=== PATIENT | male | born 1975 | race Caucasian/White ===

== ENCOUNTER 2017-03-17 12:26 | Emergency (ER) | payer OTHER ==
[~2017-03-17] VITALS: Ht 185.4 cm; Wt 82.8 kg
[~2017-03-17 12:26] MED LIST: ALBUAER INH; TRAZ50TA35 PO; [UNRECOGNIZED DRUG - OTHER]
[2017-03-17 12:37] VITALS: Ht 185.4 cm; Wt 82.8 kg
[2017-03-17] MEDS ORDERED: ALBUAER INH (13:10)
[2017-03-17] MEDS ORDERED: BUSP15TA70 PO (13:10)
[2017-03-17] MEDS ORDERED: ADVIN25050 INH (13:17)
[2017-03-17] MEDS ORDERED: DOCUSATE SODIUM 100 MG/10 ML UDC PO STA (13:23)
--- NOTE | 2017-03-17 13:27 | EMERGENCY ROOM VISIT NOTE ---
History Report prepared by Navneet: Jorge Willis Under the Supervision of: Dr. Zeeshan Dominguez D.O. First contact with patient: 13:06 Chief Complaint: EAR PAIN Stated Complaint: SEVERE EAR PAIN BOTH EARS History of Present Illness The patient is a 41 year old male who presents to the Emergency Room with complaints of worsening bilateral ear pain beginning one week prior to arrival. He currently rates his discomfort as a 7/10 in severity. He states his symptoms worsen with cold air. The patient notes he has been experiencing allergies for a week and a half, and he has taken over the counter allergy medication. It is noted the patient has a 15 pack year history. He states he has been sober from alcohol for the past thirty days. The patient denies recreational drug use. 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 A total of 10 systems reviewed and were otherwise negative. Past Medical & Surgical Medical Problems: (1) Asthma Family History No significant family history Social History Smoking Status: Current Every Day Smoker Alcohol Use: occasionally Drug Use: none Housing Status: other Occupation Status: unemployed Current/Historical Medications Scheduled Albuterol Sulfate (Proventil Hfa), 2 PUFFS INH QID Buspirone Hcl (Buspar), 15 MG PO BID Cetirizine Hcl (Zyrtec), 1 TAB PO DAILY Fluocinolone Acetonide (Otic) (Dermotic), 3-5 DROPS OTB TID Fluticasone Prop/Salmeterol (Advair Diskus 250-50 Mcg/Dose), 1 PUFFS INH BID Scheduled PRN Fluticasone Propionate (Nasal) (Flonase Allergy Relief), 2 SPRAYS CHRISTINE DAILY PRN for Nasal Congestion Miscellaneous Medications Trazodone Hcl (Trazodone), 50 MG PO Allergies Coded Allergies: Penicillins (Verified Allergy, Unknown, ., 03/17/17) Physical Exam Vital Signs Date Time Temp Pulse Resp B/P Pulse Ox O2 Delivery O2 Flow Rate FiO2 03/17/17 15:07 85 18 99/72 96 Room Air 03/17/17 12:37 36.6 98 18 117/82 98 Room Air Physical Exam GENERAL: Patient is well appearing and in no acute distress. HEENT: Bilateral cerumen impaction. No acute trauma, normocephalic atraumatic, mucous membranes moist, no nasal congestion, no scleral icterus. NECK: No stridor, no adenopathy, no meningismus, trachea is midline. LUNGS: No dyspnea. Clear to auscultation and equal bilaterally. No wheeze, no rhonchi. HEART: Regular rate and rhythm. No murmurs, rubs, gallops appreciated. ABDOMEN: Soft, nontender, bowel sounds positive, no masses appreciated, no peritonitis. BACK: No midline tenderness, no CVA tenderness EXTREMITIES: Normal motion all extremities, no cyanosis, no edema. NEUROLOGIC: Alert and oriented, no acute motor or sensory deficits, no focal weakness, cranial nerves grossly intact. SKIN: No rash, no jaundice, no diaphoresis. Medical Decision & Procedures Medications Administered Medications (Trade) Dose Ordered Sig/Sera Route Start Time Stop Time Status Last Admin Dose Admin Docusate Sodium (coLACE SYRUP) 100 mg NOW STAT PO 03/17/17 13:23 03/17/17 13:25 DC 03/17/17 13:23 100 MG ED Course 1320: The patient was evaluated in room A10. A complete history and physical exam was performed. It is noted the patient's treatment plan was reviewed. 1323: Ordered Docusate Sodium 100 mg PO. 1425: Reevaluated the patient at this time, and he is doing well. 1515: Reevaluated the patient. Discussed results and discharge instructions: He verbalized understanding and agreement. The patient is ready for discharge. Medical Decision The differential diagnoses include but are not limited to: bilateral cerumen impaction, otitis media, otitis externa, cholesteatoma. Patient had significant bilateral cerumen impaction this was irrigated out by emergency department staff. I was definitively able to see the tympanic membrane on the right, there is significant erythema and chronic changes from long-standing cerumen impaction. On the left eyebrow believe I was able to see the tympanic membrane and a significant portion of the cerumen had been removed , however I want the patient evaluated by ear nose and throat to rule out cholesteatoma or any other significant pathology. I prescribed the patient a short course of otic steroids for 5 days, there does not appear to be a perforation in the eardrum. Also prescribed him Zyrtec and nasal neck for his seasonal allergies. [place] Drug [place] Search Results: patient reviewed within database, see additional documentation Drug Monitoring Findings: The patient had oxycodone prescribed on May 22, 2016. Impression Primary Impression: Bilateral impacted cerumen Additional Impression: Seasonal allergic rhinitis Scribe Attestation The scribe's documentation has been prepared under my direction and personally reviewed by me in its entirety. I confirm that the note above accurately reflects all work, treatment, procedures, and medical decision making performed by me. Departure Information Dispostion Home / Self-Care Prescriptions Fluocinolone Acetonide (Otic) (DERMOTIC) 0.01 % Oil 3-5 DROPS OTB TID for 5 Days, #1 AMP Prov: Zeeshan Dominguez D.OAlb[place] 03/17/17 Cetirizine Hcl (ZYRTEC) 10 Mg Tab 1 TAB PO DAILY for 30 Days, #30 TAB 0 Refills Prov: Zeeshan Dominguez D.O. 03/17/17 Fluticasone Propionate (Nasal) (Flonase Allergy Relief) 50 Mcg/Act Spr 2 SPRAYS CHRISTINE DAILY Y for Nasal Congestion, #1 EA Prov: Zeeshan Dominguez D.O[place] 03/17/17 Referrals No Doctor, Assigned (PCP) Vince Mcgee MD Call for follow-up appointment regarding allergies as well as possible cholesteatoma. Forms HOME CARE DOCUMENTATION FORM, IMPORTANT VISIT INFORMATION, WORK / SCHOOL INSTRUCTIONS Patient Instructions ED Cerumen Impaction, Home Care, ED Earwax Removal, [facility] Additional Instructions Return for fever greater than 101, or any other concerns. Problem Qualifiers Additional Impression: Seasonal allergic rhinitis Allergic rhinitis trigger: unspecified Qualified Codes: J30.2 - Other seasonal allergic rhinitis
[2017-03-17] MEDS ORDERED: CETI10TA10 PO (15:08)
[2017-03-17] MEDS ORDERED: FLUT0.15 NAE (15:08)
[2017-03-17] MEDS ORDERED: FLUO0.0122 OTB (15:12)
[2017-03-17 15:20] VITALS: BP 99/72; PULSE 85; TEMP 36.6; O2SAT 96
[2017-03-28] MEDS ORDERED: FLUT0.15 NAE (11:03)
[2017-03-28] MEDS ORDERED: CETI10TA84 PO (11:03)
[2017-03-28] MEDS ORDERED: CEFD300C2 PO (12:46)
[2017-03-28] MEDS ORDERED: PRVHFAIN INH (12:47)
[2017-03-28] MEDS ORDERED: TRAZ50TA35 PO (12:47)
[2017-03-28] MEDS ORDERED: ADVIN25/60 INH (12:47)
[2017-03-28] MEDS ORDERED: BUSP15TA70 PO (12:47)
== END 2017-03-17 15:21 | disposition home or self-care (01) ==
LOC: C.EDB 12:26 → C.EDA 15:21
DX: H61.23 Impacted cerumen, bilateral (principal); J30.2 Other seasonal allergic rhinitis; J45.909 Unspecified asthma, uncomplicated; F17.210 Nicotine dependence, cigarettes, uncomplicated; Z79.899 Other long term (current) drug therapy

== ENCOUNTER → 2017-04-06 | Outpatient (CLI) | payer OTHER ==
[~2017-04-06] MED LIST changes: +ADVIN25/60 INH; +ADVIN25050 INH; +BUSP15TA70 PO; +CEFD300C2 PO; +CETI10TA84 PO; +CLIN300C2 PO; +DIPH25CA5 PO; +DSY/50 PO; +ERYT250T PO; +FLUT0.15 NAE; +GABA600T PO; +HYDR-3124 PO; +MELA1TAB48 PO; +OFLO0.3S4 OTB; +PRVHFAIN INH; +SERT50TA PO; +TOPI50TA16 PO; +TRAZ100T29 PO; -[UNRECOGNIZED DRUG - OTHER]
--- NOTE | 2017-04-06 15:34 | DIAGNOSTIC IMAGING REPORT ---
CT TEMPORAL ORB/SELLA/TEMP W/O CT DOSE: 729.14 mGy.cm CLINICAL HISTORY: H93.8X1 Mass of right ear canalPATIENT WITH BILATERAL OTITIS MED TECHNIQUE: Helical images were acquired in transverse plane. Coronal reformatted images were acquired. COMPARISON STUDY: None. FINDINGS: There is a 4 mm polypoid nodule involving the anterior wall of the right external auditory canal. There is underlying bony erosive change, creating communication with the right temporal mandibular joint. The right middle ear cavity appears normal. There is a left mastoid effusion. Within the left middle ear cavity, there is a small amount of soft tissue abutting the malleus. The right middle ear cavity is normally aerated. No abnormalities the tympanic membranes are visualized. The scutum appears intact bilaterally. IMPRESSION: 1. Left mastoid effusion, and minimal soft tissue within the left middle ear cavity 2. The scutum appears intact bilaterally 3. 4 mm polypoid nodule involving the anterior wall the right external carotid canal with underlying bony erosive change. The etiology of this nodule is not known. An external auditory canal cholesteatoma is within the differential. Electronically signed by: Devyn Clark M.D. 04/06/2017 3:33 PM Dictated Date/Time: 04/06/2017 3:22 PM
== END ==
LOC: C.CTS 15:01
DX: H93.8X1 Other specified disorders of right ear (principal)

== ENCOUNTER 2017-04-16 15:30 | Emergency (ER) | payer OTHER ==
[~2017-04-16] VITALS: Ht 185.4 cm; Wt 83.1 kg
[~2017-04-16 15:30] MED LIST changes: -CLIN300C2 PO; -DIPH25CA5 PO; -DSY/50 PO; -ERYT250T PO; -GABA600T PO; -HYDR-3124 PO; -MELA1TAB48 PO; -OFLO0.3S4 OTB; -SERT50TA PO; -TOPI50TA16 PO; -TRAZ100T29 PO
[2017-04-16 15:38] VITALS: TEMP 36.9; Ht 185.4 cm; Wt 83.1 kg
--- NOTE | 2017-04-16 16:18 | DIAGNOSTIC IMAGING REPORT ---
CHEST ONE VIEW PORTABLE CLINICAL HISTORY: Mood Disorder mental status change COMPARISON STUDY: 03/28/2017 FINDINGS: Small fixed hiatal hernia. Lungs are clear. No evidence for cardiac enlargement. IMPRESSION: No acute process. Small hiatal hernia. Electronically signed by: Pawan Sifuentes M.D. 04/16/2017 4:16 PM Dictated Date/Time: 04/16/2017 4:16 PM
[2017-04-16 16:20] LABS: URINE APPEARANCE CLEAR (CLEAR); URINE BILIRUBIN NEG (NEG); URINE COLOR YELLOW; URINE NITRITE NEG (NEG); URINE SPECIFIC GRAVITY 1.008 (1.000-1.030); UROBILINOGEN NEG (NEG)
[2017-04-16 16:23] LABS: MANUAL MICROSCOPIC REQUIRED? NO; REVIEW REQ? NO
[2017-04-16 16:24] LABS: BASO % 0.4 %; BASO ABS # 0.05 K/uL (0-0.2); COMPLETE YES; EOS % 1.8 %; HEMATOCRIT 40.7 % (42-52); IG% 0.3 %; LYMPH % 23.8 %; LYMPH ABS # 2.85 K/uL (1.2-3.4); MEAN CELL VOLUME 85.1 fL (80-100); MEAN CORPUSCULAR HGB CONC 31.7 g/dl (32-36); MEAN PLATELET VOLUME 11.6 fL (7.4-10.4); MONO % 5.9 %; NEUT % 67.8 %; PLATELET COUNT 168 K/uL (130-400); RED BLOOD COUNT 4.78 M/uL (4.7-6.1); WHITE BLOOD COUNT 11.97 K/uL (4.8-10.8)
[2017-04-16] MEDS ORDERED: CLIN300C2 PO (16:33)
[2017-04-16] MEDS ORDERED: DIPH25CA5 PO (16:33)
[2017-04-16] MEDS ORDERED: OFLO0.3S4 OTB (16:33)
[2017-04-16 16:43] LABS: BUN/CREATININE RATIO 11.5 (10-20); CALCIUM 8.9 mg/dl (8.5-10.1); POTASSIUM 4.4 mmol/L (3.5-5.1)
[2017-04-16 16:49] LABS: BENZODIAZEPINE, URINE NEG (NEG); COCAINE,URINE NEG (NEG); PHENCYCLIDINE, URINE NEG (NEG)
[2017-04-16 16:53] LABS: THYROID STIMULATING HORMONE 1.4 uIu/ml (0.300-4.500)
[2017-04-16 17:11] VITALS: BP 130/75; PULSE 88; O2SAT 98
[2017-04-16] MEDS ORDERED: DSY/50 PO (17:12)
--- NOTE | 2017-04-16 21:58 | EMERGENCY ROOM VISIT NOTE ---
History Report prepared by Navneet: Leonor Xiong Under the Supervision of: Dr. John Barber D.O. First contact with patient: 15:43 Chief Complaint: ANXIETY Stated Complaint: TOOTH PAIN,ANXIETY History of Present Illness The patient is a 41 year old male who presents to the Emergency Room with complaints of worsening anxiety starting 1 week ago. He reports his anxiety attacks have worsened and his medications are no longer working. He denies any SI, HI, auditory hallucinations, or visual hallucinations. He has not been eating right, but has been taking care of himself. He denies any fever, chest pain, SOB, nausea, vomiting, or diarrhea. He has a history of seizure. He also reports tooth pain. He had a tooth that broke off. He went to the dentist 4 days ago who said he might need to have his teeth pulled. He was started on an antibiotic. He requests pain medications for his tooth pain. He is able to eat and drink without difficulty. 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 Source of History: patient, friend Onset: 1 week ago Position: other (mental health) Quality: other (anxiety) Timing: worsening Associated Symptoms: No SOB, No chest pain, No diarrhea, No fevers, No nausea, No vomiting Note: Pt reports tooth pain. Pt denies SI, HI, hallucinations. Review of Systems See HPI for pertinent positives & negatives. A total of 10 systems reviewed and were otherwise negative. Past Medical & Surgical Medical Problems: (1) Asthma (2) Seizure Family History Diabetes mellitus FH: cancer Hypertension Seizures Social History Smoking Status: Current Every Day Smoker Alcohol Use: occasionally Drug Use: none Housing Status: other Occupation Status: unemployed Current/Historical Medications Scheduled Buspirone Hcl (Buspar), 15 MG PO BID Cetirizine (Zyrtec), 10 MG PO DAILY Clindamycin Hcl (Cleocin), 300 MG PO Q8 Diphenhydramine Hcl (Benadryl), 25 MG PO DAILY Fluticasone Prop/Salmeterol (Advair Diskus 250-50 Mcg/Dose), 1 PUFFS INH BID Fluticasone Propionate (Nasal) (Flonase Allergy Relief), 1 SPRAY CHRISTINE DAILY Ofloxacin (Oph) (Ocuflox Oph Soln), 5 DROPS OTB BID Trazodone HCl (Trazodone HCl), 50 MG PO HS Trazodone Hcl (Trazodone), 50 MG PO HS Allergies Coded Allergies: Penicillins (Verified Allergy, Unknown, ., 03/28/17) Physical Exam Vital Signs Date Time Temp Pulse Resp B/P Pulse Ox O2 Delivery O2 Flow Rate FiO2 04/16/17 17:11 88 16 130/75 98 Room Air 04/16/17 15:38 36.9 101 18 129/80 96 Room Air Physical Exam GENERAL: sitting up in bed, disheveled, no acute distress EYE EXAM: normal conjunctiva MOUTH: poor dentition, left lower second molar with chip off the medial aspect, no acute tenderness to palpation, no induration, no swelling, no submandibular swelling, subglossal is soft, tolerating secretion, normal phonation. OROPHARYNX: no exudate, no erythema, lips, buccal mucosa, and tongue normal and mucous membranes are moist NECK: supple, no nuchal rigidity, no adenopathy, non-tender LUNGS: Clear to auscultation. Normal chest wall mechanics HEART: no murmurs, S1 normal and S2 normal ABDOMEN: abdomen soft, non-tender, normo-active bowel sounds, no masses, no rebound or guarding. BACK: Back is symmetrical on inspection and there is no deformity, no midline tenderness, no CVA tenderness. SKIN: no rashes and no bruising UPPER EXTREMITIES: upper extremities are grossly normal. LOWER EXTREMITIES: No pitting edema. NEURO EXAM: Normal sensorium, cranial nerves II-XII grossly intact, normal speech, no gross weakness of arms, no gross weakness of legs. PSYCH: Denies SI or HI, denies auditory or visual hallucinations, admits to drinking and caring for himself, but eating less. Medical Decision & Procedures ER Provider Diagnostic Interpretation: Xray results as stated below per my and the radiologist's interpretation: CHEST ONE VIEW PORTABLE CLINICAL HISTORY: Mood Disorder mental status change COMPARISON STUDY: 03/28/2017 FINDINGS: Small fixed hiatal hernia. Lungs are clear. No evidence for cardiac enlargement. IMPRESSION: No acute process. Small hiatal hernia. Electronically signed by: Pawan Sifuentes M.D. 04/16/2017 4:16 PM Dictated Date/Time: 04/16/2017 4:16 PM Laboratory Results 04/16/17 16:18 Red Blood Count 4.78, Mean Corpuscular Volume 85.1, Mean Corpuscular Hemoglobin 27.0, Mean Corpuscular Hemoglobin Concent 31.7, Mean Platelet Volume 11.6, Neutrophils (%) (Auto) 67.8, Lymphocytes (%) (Auto) 23.8, Monocytes (%) (Auto) 5.9, Eosinophils (%) (Auto) 1.8, Basophils (%) (Auto) 0.4, Neutrophils # (Auto) 8.11, Lymphocytes # (Auto) 2.85, Monocytes # (Auto) 0.71, Eosinophils # (Auto) 0.22, Basophils # (Auto) 0.05 04/16/17 16:18 Test 04/16/17 16:00 04/16/17 16:13 04/16/17 16:18 Urine Color YELLOW Urine Appearance CLEAR (CLEAR) Urine pH 7.0 (4.5-7.5) Urine Specific [place] 1.008 (1.000-1.030) Urine Protein NEG (NEG) Urine Glucose (UA) NEG (NEG) Urine Ketones NEG (NEG) Urine Occult Blood NEG (NEG) Urine Nitrite NEG (NEG) Urine Bilirubin NEG (NEG) Urine Urobilinogen NEG (NEG) Urine Leukocyte Esterase NEG (NEG) Urine Opiates Screen NEG (NEG) Urine Methadone, Qualitative NEG (NEG) Urine Barbiturates NEG (NEG) Urine Phencyclidine (PCP) Level NEG (NEG) Ur Amphetamine/Methamphetamine NEG (NEG) MDMA (Ecstasy) Screen NEG (NEG) Urine Benzodiazepines Screen NEG (NEG) Urine Cocaine Metabolite NEG (NEG) Urine Marijuana (THC) NEG (NEG) Bedside Glucose 90 mg/dl (70-99) White Blood Count 11.97 K/uL (4.8-10.8) Red Blood Count 4.78 M/uL (4.7-6.1) Hemoglobin 12.9 g/dL (14.0-18.0) Hematocrit 40.7 % (42-52) Mean Corpuscular Volume 85.1 fL (80-100) Mean Corpuscular Hemoglobin 27.0 pg (25-34) Mean Corpuscular Hemoglobin Concent 31.7 g/dl (32-36) Platelet Count 168 K/uL (130-400) Mean Platelet Volume 11.6 fL (7.4-10.4) Neutrophils (%) (Auto) 67.8 % Lymphocytes (%) (Auto) 23.8 % Monocytes (%) (Auto) 5.9 % Eosinophils (%) (Auto) 1.8 % Basophils (%) (Auto) 0.4 % Neutrophils # (Auto) 8.11 K/uL (1.4-6.5) Lymphocytes # (Auto) 2.85 K/uL (1.2-3.4) Monocytes # (Auto) 0.71 K/uL (0.11-0.59) Eosinophils # (Auto) 0.22 K/uL (0-0.5) Basophils # (Auto) 0.05 K/uL (0-0.2) RDW Standard Deviation 53.3 fL (36.4-46.3) RDW Coefficient of Variation 17.0 % (11.5-14.5) Immature Granulocyte % (Auto) 0.3 % Immature Granulocyte # (Auto) 0.03 K/uL (0.00-0.02) Anion Gap 6.0 mmol/L (3-11) Est Creatinine Clear Calc Drug Dose 108.7 ml/min Estimated GFR () 107.1 Estimated GFR (Non- 92.4 BUN/Creatinine Ratio 11.5 (10-20) Calcium Level 8.9 mg/dl (8.5-10.1) Total Bilirubin 0.7 mg/dl (0.2-1) Direct Bilirubin 0.1 mg/dl (0-0.2) Aspartate Amino Transf (AST/SGOT) 66 U/L (15-37) Alanine Aminotransferase (ALT/SGPT) 84 U/L (12-78) Alkaline Phosphatase 85 U/L (45-117) Total Protein 7.7 gm/dl (6.4-8.2) Albumin 4.1 gm/dl (3.4-5.0) Thyroid Stimulating Hormone (TSH) 1.400 uIu/ml (0.300-4.500) Ethyl Alcohol mg/dL < 3.0 mg/dl (0-3) Laboratory results per my review. ED Course ED COURSE: Vital signs were reviewed and showed tachycardia. The patients medical record was reviewed The above diagnostic studies were performed and reviewed. ED treatments and interventions as stated above. 1547: The patient was evaluated in room A8. A complete history and physical examination was performed. 1715: Upon reevaluation, the patient is resting comfortably.I discussed my findings with the patient and he understands and agrees with the treatment plan. Care management has set up an appointment with a PCP for the patient in 7 days. Based on the patients age, coexisting illnesses, exam and lab findings the decision to treat as an outpatient was made. The patient remained stable while under my care. The patient appeared well at the time of discharge. Medical Decision Differential diagnosis: Etiologies such as mood disorder, infection, hypoglycemia, electrolyte abnormalities, cardiac sources, intracerebral event, toxicologic, neurologic, as well as others were entertained. Patient is a 41-year-old male who presents the ER for dental pain. He notes that this has been worsening over the past couple days and did see a dentist who has him referred in to see an oral surgeon coming up. He is currently on clindamycin. He is requesting additional pain medications for his dentalgia. On my exam there is no obvious abscess. No signs of Aaron's angina. He is eating and drinking without difficulty. Recommended continuing the antibiotics along with Tylenol and Motrin. He did run out of his trazodone which was refilled for 8 days at which time we set up an appointment for him to see a new PCP. He can have his other medications filled at this time. He was evaluated by our psychiatric childcare center director who recommended discharge and having him follow- up by his PCP and therapist who we set up for him previously. CBC along with BMP, LFTs and bilirubin was unremarkable. Transaminitis has been persistent in the past. TSH is normal. Tox and alcohol were negative. UA was negative. Chest x-ray was unremarkable. Patient was updated in regards to his findings and discharged to follow-up with his PCP. Both myself, the childcare center director and the patient's friend felt that he was not danger to himself. The patient felt comfortable and wanted to go home. He was happy [facility] refilled his trazodone to help him sleep and assist with his anxiety. Discussed with Pt concerning signs and symptoms to watch out for. Pt was instructed to follow up with their PCP and discussed with the patient their option to return to the ED at anytime for persistent or worsening symptoms. The appropriate anticipatory guidance and out-patient management, including indications for return to the emergency department, were explained at length to the patient and understood. [place] Results: patient reviewed within database, no issues identified Impression Primary Impression: Dentalgia Additional Impressions: Transaminitis Anxiety Scribe Attestation The scribe's documentation has been prepared under my direction and personally reviewed by me in its entirety. I confirm that the note above accurately reflects all work, treatment, procedures, and medical decision making performed by me. Departure Information Dispostion Home / Self-Care Prescriptions Trazodone HCl (Trazodone HCl) 50 Mg Tab 50 MG PO HS, #8 Prov: John Barber, DO 04/16/17 Referrals No Doctor, Assigned (PCP) Forms HOME CARE DOCUMENTATION FORM, IMPORTANT VISIT INFORMATION Patient Instructions Anxiety Body Response, Decay Tooth, My [facility] Additional Instructions Please follow up with your primary care doctor as set up by our psychiatric childcare center director. Any worsening of your symptoms, please return to the ED immediately. This includes fevers greater than 100.4, trouble swallowing, swelling of your face, trouble breathing, thoughts of self-harm, thoughts of harming someone else, hearing voices or seeing people that others are not. Please take Tylenol or Motrin as needed for the tooth pain. Please continue your antibiotics. Problem Qualifiers
== END 2017-04-16 17:22 | disposition home or self-care (01) ==
LOC: C.EDB 15:31 → C.EDA 17:22
DX: K08.89 Other specified disorders of teeth and supporting structures (principal); R74.0 Nonspecific elevation of levels of transaminase and lactic acid dehydrogenase [LDH]; F41.9 Anxiety disorder, unspecified; J45.909 Unspecified asthma, uncomplicated; R56.9 Unspecified convulsions; Z83.3 Family history of diabetes mellitus; Z80.9 Family history of malignant neoplasm, unspecified; Z82.49 Family history of ischemic heart disease and other diseases of the circulatory system; F17.210 Nicotine dependence, cigarettes, uncomplicated; Z79.899 Other long term (current) drug therapy

== ENCOUNTER 2017-06-16 18:03 | Emergency (ER) | payer OTHER ==
[~2017-06-16] VITALS: Ht 185.4 cm; Wt 82.6 kg
[~2017-06-16 18:03] MED LIST changes: -ADVIN25/60 INH; -ALBUAER INH; +BND25 PO; -CEFD300C2 PO; +CLIN300C2 PO; +DSY/50 PO; +OFLO0.3S4 OTB; -PRVHFAIN INH
[2017-06-16 18:09] VITALS: TEMP 37; Ht 185.4 cm; Wt 82.6 kg
[2017-06-16] MEDS ORDERED: SODIUM CHLORIDE 0.9% 500ML 500 ML IV STA (18:12)
[2017-06-16] MEDS ORDERED: MULTI-VITAMIN INFUSION INJ 10 ML, THIAMINE HCL INJ 100 MG, FoLIC ACID INJ 1 MG in SODIU... IV ONE (18:15)
--- NOTE | 2017-06-16 18:17 | EMERGENCY ROOM VISIT NOTE ---
History Report prepared by Navneet: Scotty Patrick Under the Supervision of: Dr. Raffi Riley M.D. First contact with patient: 18:08 Stated Complaint: ALCOHOL OVERDOSE History of Present Illness HPI is limited due to mental status. The patient is a 41 year old male who presents to the Emergency Room via Emergency Medical services for an alcohol overdose. Per the hospital nursing staff the patient was found outside [employer], and was not behaving appropriately. The patient lives at the [facility] homeless long term and was hanging outside around [employer] all night last night. The patient admits to drinking alcohol. He is currently only complaining about a pain in his tooth and denies any recent vomiting. He also denies any head pain or traumatic falls. Source of History: patient, nursing staff Position: other (EtOH overdose) Quality: other (EtOH overdose ) Associated Symptoms: No headache, No vomiting Note: Tooth Pain Review of Systems ROS unobtainable secondary to mental status. Past Medical & Surgical Medical Problems: (1) Asthma (2) Seizure Family History Diabetes mellitus FH: cancer Hypertension Seizures Social History Smoking Status: Current Every Day Smoker Alcohol Use: occasionally Drug Use: none Housing Status: other Occupation Status: unemployed Current/Historical Medications Scheduled Cetirizine (Zyrtec), 10 MG PO DAILY Erythromycin (Erythromycin), 250 MG PO QID Fluticasone Prop/Salmeterol (Advair Diskus 250-50 Mcg/Dose), 1 PUFFS INH BID Fluticasone Propionate (Nasal) (Flonase Allergy Relief), 1 SPRAY CHRISTINE DAILY Gabapentin (Neurontin), 600 MG PO TID Hydroxyzine Hcl (Atarax), 25 MG PO BID Melatonin (Melatonin), 20 MG PO HS Ofloxacin (Oph) (Ocuflox Oph Soln), 5 DROPS OTB BID Sertraline (Zoloft), 50 MG PO DAILY Topiramate (Topamax), 50 MG PO BID Trazodone Hcl (Trazodone), 300 MG PO HS Allergies Coded Allergies: Penicillins (Verified Allergy, Unknown, ., 06/16/17) Physical Exam Vital Signs Date Time Temp Pulse Resp B/P (MAP) Pulse Ox O2 Delivery O2 Flow Rate FiO2 06/16/17 22:37 75 14 81/54 94 Room Air 06/16/17 20:51 85 16 104/65 98 Room Air 06/16/17 19:13 87 16 102/79 96 Room Air 06/16/17 18:09 37.0 99 16 102/79 96 Room Air Physical Exam GENERAL: Patient is in no acute distress. HEENT: No acute trauma, normocephalic atraumatic, mucous membranes moist, no nasal congestion, no scleral icterus. Pupils are equal and reactive to light. NECK: No stridor, no adenopathy, no meningismus, trachea is midline. LUNGS: Clear to auscultation bilaterally, no wheeze, no rhonchi, breath sounds equal. HEART: Without murmurs gallops or rubs, regular rate and rhythm. ABDOMEN: Soft, nontender, bowel sounds positive, no hernias, no peritonitis. EXTREMITIES: No cyanosis or edema, full range of motion of all the joints without pain or difficulty, no signs for acute trauma. NEUROLOGIC: Seems intoxicated. Patient is slurring his speech. There is no facial droop, no focal motor deficits. He seems sleepy. SKIN: No rash, no jaundice, no diaphoresis. Medical Decision & Procedures ER Provider Diagnostic Interpretation: Radiology results as stated below per my review and radiologist interpretation: CHEST ONE VIEW PORTABLE CLINICAL HISTORY: Mood Disorder mental status change COMPARISON STUDY: 03/28/2017 FINDINGS: Small fixed hiatal hernia. Lungs are clear. No evidence for cardiac enlargement. IMPRESSION: No acute process. Small hiatal hernia. Electronically signed by: Pawan Sifuentes M.D. 04/16/2017 4:16 PM Dictated Date/Time: 04/16/2017 4:[address] OF THE HEAD WITHOUT CONTRAST CLINICAL HISTORY: Headache. COMPARISON STUDY: Temporal bone CT April 06, 2017. CT DOSE: 687.98 mGy.cm TECHNIQUE: Helical axial images of the head were obtained without IV contrast. Automated exposure control was utilized for the study. A dose lowering technique was utilized adhering to the principles of ALARA. FINDINGS: No acute intracranial hemorrhage, midline shift or mass effect is present. Study is mildly compromised by motion artifact. Ventricular system is normal. The basilar cisterns are patent. There are no extra-axial collections. There are no findings to suggest acute dural sinus thrombosis or acute territorial infarct. No calvarial fracture is identified. Left mastoid cells are partially opacified. This has slightly improved since exam of April 06, 2017. Nasal bone deformities are chronic. IMPRESSION: 1. No acute intracranial findings. 2. No calvarial fracture. Electronically signed by: Matt Cristobal M.D. 06/16/2017 10:13 PM Dictated Date/Time: 06/16/2017 10:10 PM CHEST 2 VIEWS ROUTINE CLINICAL HISTORY: Abnormal portable chest radiograph. COMPARISON STUDY: Chest radiograph April 16, 2017 and June 16, 2017 at 7:32 PM. FINDINGS: A moderate sized hiatal hernia is noted. No pneumothorax or pleural effusion is present. Lungs are clear. The apparent right lung airspace opacity shown on prior portable chest radiograph was artifactual. There is no evidence of pulmonary edema. Cardiac size is normal. IMPRESSION: 1. No acute cardiopulmonary findings. The apparent right lung airspace opacity on prior portable chest radiograph was artifactual. 2. Moderate sized hiatal hernia. Electronically signed by: Matt Cristobal M.D. 06/16/2017 10:21 PM Dictated Date/Time: 06/16/2017 10:19 PM Laboratory Results 06/16/17 19:01 06/16/17 19:01 Test 06/16/17 00:00 06/16/17 19:01 Urine Opiates Screen NEG (NEG) Urine Methadone, Qualitative NEG (NEG) Urine Barbiturates NEG (NEG) Urine Phencyclidine (PCP) Level NEG (NEG) Ur Amphetamine/Methamphetamine NEG (NEG) MDMA (Ecstasy) Screen NEG (NEG) Urine Benzodiazepines Screen NEG (NEG) Urine Cocaine Metabolite NEG (NEG) Urine Marijuana (THC) NEG (NEG) Red Blood Count 4.33 M/uL (4.7-6.1) Mean Corpuscular Volume 85.9 fL (80-100) Mean Corpuscular Hemoglobin 28.2 pg (25-34) Mean Corpuscular Hemoglobin Concent 32.8 g/dl (32-36) RDW Standard Deviation 55.2 fL (36.4-46.3) RDW Coefficient of Variation 17.6 % (11.5-14.5) Platelet Estimate NORMAL Anion Gap 6.0 mmol/L (3-11) Est Creatinine Clear Calc Drug Dose 90.6 ml/min Estimated GFR () 85.9 Estimated GFR (Non- 74.1 BUN/Creatinine Ratio 11.3 (10-20) Calcium Level 8.5 mg/dl (8.5-10.1) Magnesium Level 2.2 mg/dl (1.8-2.4) Total Bilirubin 0.3 mg/dl (0.2-1) Direct Bilirubin 0.2 mg/dl (0-0.2) Aspartate Amino Transf (AST/SGOT) 84 U/L (15-37) Alanine Aminotransferase (ALT/SGPT) 121 U/L (12-78) Alkaline Phosphatase 86 U/L (45-117) Total Protein 6.8 gm/dl (6.4-8.2) Albumin 3.5 gm/dl (3.4-5.0) Ethyl Alcohol mg/dL 267.0 mg/dl (0-3) Laboratory results reviewed by me. Medications Administered Medications (Trade) Dose Ordered Sig/Sera Route Start Time Stop Time Status Last Admin Dose Admin Sodium Chloride 500 ml @ 999 mls/hr Q31M STAT IV 06/16/17 18:12 06/16/17 18:42 DC 06/16/17 18:12 999 MLS/HR Multivitamins 10 ml/Thiamine HCl 100 mg/Folic Acid 1 mg/Sodium Chloride 1,011.2 ml @ 500 mls/ hr Q2H2M ONCE IV 06/16/17 18:15 06/16/17 20:16 DC 06/16/17 18:15 500 MLS/HR ECG Indication: altered mental status, toxicologic Rate (beats per minute): 85 Rhythm: normal sinus Findings: no acute ischemic change, no ectopy, other (LVH present) ED Course 1808: The patient was evaluated in room B10. A complete history and physical exam was performed. 1811: Ordered Sodium Chloride 500 mL @ 999 mL/hr IV. 1814: Ordered Multivitamins 1,011.2 mL @ 500 mL/hr IV. 4: I reevaluated the patient at this time. He was asleep. 0030: The patient remains in the emergency department at this time. He will be signed out to Dr. Dubose at change of shift. Medical Decision Differential Diagnosis includes; EtOH abuse, drug abuse, aspiration, electrolyte imbalance, infection. There is no leukocytosis or concerning anemia. No significant electrolyte abnormality, no kidney failure. There were some liver enzyme elevations, likely consistent with alcohol abuse. Urine tox is negative. Alcohol level is elevated at 267, consistent with his alcohol abuse. Brain CT shows no acute bleed or mass effect. Initial chest film was hard to evaluate and suggested a possible infiltrate. Repeat chest film was performed when the patient was more awake and cooperative demonstrating no focal infiltrate, no CHF or mediastinal widening. EKG showed a sinus rhythm, no acute ischemia. The patient received IV saline and IV saline with thiamine, multivitamins and folate. He has been up to the bathroom a few times but then goes back to sleep rather quickly. I cannot find evidence for trauma. Patient appears to be sleepy and intoxicated with alcohol. We will allow the alcohol to clear, when he becomes more awake, he can be discharged. At this point, his care has been assumed by Dr. Dubose, please see his notes. Impression Primary Impression: Alcohol overdose Scribe Attestation The scribe's documentation has been prepared under my direction and personally reviewed by me in its entirety. I confirm that the note above accurately reflects all work, treatment, procedures, and medical decision making performed by me. Departure Information Dispostion Still a Patient Referrals No Doctor, Assigned (PCP)
[2017-06-16 19:20] LABS: MEAN CORPUSCULAR HGB CONC 32.8 g/dl (32-36)
[2017-06-16 19:28] LABS: HEMATOCRIT 37.2 % (42-52); MEAN CELL VOLUME 85.9 fL (80-100); MEAN CORPUSCULAR HEMOGLOBIN 28.2 pg (25-34); RED BLOOD COUNT 4.33 M/uL (4.7-6.1); WHITE BLOOD COUNT 7.06 K/uL (4.8-10.8)
[2017-06-16 19:42] LABS: BUN/CREATININE RATIO 11.3 (10-20); CALCIUM 8.5 mg/dl (8.5-10.1); CREATININE 1.2 mg/dl (0.60-1.40); MAGNESIUM 2.2 mg/dl (1.8-2.4); PLATELET COUNT 134 K/uL (130-400); PLT ESTIMATE NORMAL; POTASSIUM 3.3 mmol/L (3.5-5.1)
--- NOTE | 2017-06-16 19:46 | DIAGNOSTIC IMAGING REPORT ---
CHEST ONE VIEW PORTABLE CLINICAL HISTORY: Possible aspiration. COMPARISON STUDY: Chest radiograph April 16, 2017. FINDINGS: Evaluation was suboptimal due to difficulty positioning. No pneumothorax is identified. The costophrenic angles were not included. Asymmetric right mid and upper lung airspace opacity is present. There is no evidence of pulmonary edema. Lower mediastinal contour abnormality is suggestive of a hiatal hernia. IMPRESSION: 1. Asymmetric right mid and upper lung airspace opacity. While this could be artifactual, airspace disease is favored. 2. No pneumothorax identified. 3. Moderate sized hiatal hernia. Electronically signed by: Matt Cristobal M.D. 06/16/2017 7:45 PM Dictated Date/Time: 06/16/2017 7:41 PM
[2017-06-16] MEDS ORDERED: MELA1TAB48 PO (21:06)
[2017-06-16] MEDS ORDERED: GABA600T PO (21:06)
[2017-06-16] MEDS ORDERED: HYDR-3124 PO (21:06)
[2017-06-16] MEDS ORDERED: ERYT250T PO (21:06)
[2017-06-16] MEDS ORDERED: TOPI50TA16 PO (21:06)
[2017-06-16] MEDS ORDERED: SERT50TA PO (21:06)
[2017-06-16] MEDS ORDERED: TRAZ100T29 PO (21:06)
--- NOTE | 2017-06-16 22:14 | DIAGNOSTIC IMAGING REPORT ---
CT OF THE HEAD WITHOUT CONTRAST CLINICAL HISTORY: Headache. COMPARISON STUDY: Temporal bone CT April 06, 2017. CT DOSE: 687.98 mGy.cm TECHNIQUE: Helical axial images of the head were obtained without IV contrast. Automated exposure control was utilized for the study. A dose lowering technique was utilized adhering to the principles of ALARA. FINDINGS: No acute intracranial hemorrhage, midline shift or mass effect is present. Study is mildly compromised by motion artifact. Ventricular system is normal. The basilar cisterns are patent. There are no extra-axial collections. There are no findings to suggest acute dural sinus thrombosis or acute territorial infarct. No calvarial fracture is identified. Left mastoid cells are partially opacified. This has slightly improved since exam of April 06, 2017. Nasal bone deformities are chronic. IMPRESSION: 1. No acute intracranial findings. 2. No calvarial fracture. Electronically signed by: Matt Cristobal M.D. 06/16/2017 10:13 PM Dictated Date/Time: 06/16/2017 10:10 PM
--- NOTE | 2017-06-16 22:22 | DIAGNOSTIC IMAGING REPORT ---
CHEST 2 VIEWS ROUTINE CLINICAL HISTORY: Abnormal portable chest radiograph. COMPARISON STUDY: Chest radiograph April 16, 2017 and June 16, 2017 at 7:32 PM. FINDINGS: A moderate sized hiatal hernia is noted. No pneumothorax or pleural effusion is present. Lungs are clear. The apparent right lung airspace opacity shown on prior portable chest radiograph was artifactual. There is no evidence of pulmonary edema. Cardiac size is normal. IMPRESSION: 1. No acute cardiopulmonary findings. The apparent right lung airspace opacity on prior portable chest radiograph was artifactual. 2. Moderate sized hiatal hernia. Electronically signed by: Matt Cristobal M.D. 06/16/2017 10:21 PM Dictated Date/Time: 06/16/2017 10:19 PM
[2017-06-16 22:30] LABS: BENZODIAZEPINE, URINE NEG (NEG); COCAINE,URINE NEG (NEG); PHENCYCLIDINE, URINE NEG (NEG)
[2017-06-17 04:23] VITALS: BP 93/61; PULSE 91; O2SAT 96
--- NOTE | 2017-06-17 05:29 | EMERGENCY ROOM VISIT NOTE ---
ED Visit Note First contact with patient: 00:32 41 yr old male signed out to me by Dr Riley awaiting sobering up. He is awake, no distress and requesting discharge. Extensive testing unremarkable by Dr Riley other than elevated EtOH. Patient sleeping soundly and easily awoken. [place] to be sober and discharged with case management in to talk with him. Patient denies complaints nor other issues.
== END 2017-06-17 04:24 | disposition home or self-care (01) ==
LOC: EDBD 18:03 → C.EDB 18:03
DX: T51.91XA Toxic effect of unspecified alcohol, accidental (unintentional), initial encounter (principal); J45.909 Unspecified asthma, uncomplicated; F17.200 Nicotine dependence, unspecified, uncomplicated; Z86.69 Personal history of other diseases of the nervous system and sense organs; Z83.3 Family history of diabetes mellitus; Z82.49 Family history of ischemic heart disease and other diseases of the circulatory system; Z82.0 Family history of epilepsy and other diseases of the nervous system; Z79.899 Other long term (current) drug therapy

== ENCOUNTER 2017-06-18 17:02 | Emergency (ER) | payer OTHER ==
[~2017-06-18] VITALS: Ht 170.2 cm; Wt 82.4 kg
[~2017-06-18 17:02] MED LIST changes: -BND25 PO; -BUSP15TA70 PO; -CLIN300C2 PO; -DSY/50 PO; +ERYT250T PO; +GABA600T PO; +HYDR-3124 PO; +MELA1TAB48 PO; +SERT50TA PO; +TOPI50TA16 PO; +TRAZ100T29 PO; -TRAZ50TA35 PO
[2017-06-18 17:32] VITALS: TEMP 36.7; Ht 170.2 cm; Wt 82.4 kg
[2017-06-18 19:02] LABS: BASO % 0.6 %; BASO ABS # 0.05 K/uL (0-0.2); COMPLETE YES; EOS % 1.2 %; HEMATOCRIT 38.1 % (42-52); IG% 0.4 %; LYMPH % 22.9 %; LYMPH ABS # 1.94 K/uL (1.2-3.4); MEAN CELL VOLUME 86.4 fL (80-100); MEAN CORPUSCULAR HEMOGLOBIN 27.2 pg (25-34); MEAN CORPUSCULAR HGB CONC 31.5 g/dl (32-36); MEAN PLATELET VOLUME 12.6 fL (7.4-10.4); MONO % 6.9 %; PLATELET COUNT 154 K/uL (130-400); RED BLOOD COUNT 4.41 M/uL (4.7-6.1); WHITE BLOOD COUNT 8.49 K/uL (4.8-10.8)
[2017-06-18 19:10] LABS: URINE APPEARANCE CLEAR (CLEAR); URINE BILIRUBIN NEG (NEG); URINE COLOR YELLOW; URINE NITRITE NEG (NEG); URINE PH 5.5 (4.5-7.5); URINE SPECIFIC GRAVITY 1.012 (1.000-1.030); UROBILINOGEN NEG (NEG); ZZUR CULT IF INDIC CLEAN CATCH NO
[2017-06-18 19:13] LABS: MANUAL MICROSCOPIC REQUIRED? NO; REVIEW REQ? NO
[2017-06-18 19:32] LABS: BUN/CREATININE RATIO 10.4 (10-20); CREATININE 0.99 mg/dl (0.60-1.40); POTASSIUM 3.3 mmol/L (3.5-5.1)
[2017-06-18] MEDS ORDERED: NICOTINE 14 MG/24 HR TDSY TD STA (22:47)
[2017-06-18] MEDS ORDERED: TOPIRAMATE 50 MG TAB PO STA (23:26)
--- NOTE | 2017-06-19 00:11 | EMERGENCY ROOM VISIT NOTE ---
History First contact with patient: 17:42 Chief Complaint: ALCOHOL OVERDOSE Stated Complaint: ETOH Nursing Triage Summary: CALLED TO [facility] FOR PT THAT HAS SLURRED SPEECH History of Present Illness The patient is a 41 year old male who presents to the Emergency Room for evaluation of alcohol intoxication. The patient was sent by his [facility]. Staff there reported that the patient had slurred speech. The patient has a history of alcoholism. He does not admit to drinking tonight and states that he had "nothing at all" to drink. He denies any drug use or trauma. He denies any complaints at this time. The patient does state he is currently being treated for bilateral ear infections. He states he is using drops at home. Review of Systems A complete 10 point review of systems was reviewed with the patient with pertinent positives and negatives as per history of present illness. All else were negative. Past Medical/Surgical History Medical Problems: (1) Asthma (2) Seizure Family History Diabetes mellitus FH: cancer Hypertension Seizures Social History Smoking Status: Current Every Day Smoker Alcohol Use: occasionally Drug Use: none Housing Status: other Occupation Status: unemployed Current/Historical Medications Scheduled Cetirizine (Zyrtec), 10 MG PO DAILY Erythromycin (Erythromycin), 250 MG PO QID Fluticasone Prop/Salmeterol (Advair Diskus 250-50 Mcg/Dose), 1 PUFFS INH BID Fluticasone Propionate (Nasal) (Flonase Allergy Relief), 1 SPRAY CHRISTINE DAILY Hydroxyzine Hcl (Atarax), 25 MG PO TID Melatonin (Melatonin), 20 MG PO HS Ofloxacin (Oph) (Ocuflox Oph Soln), 5 DROPS OTB BID Sertraline (Zoloft), 50 MG PO DAILY Topiramate (Topamax), 50 MG PO BID Trazodone Hcl (Trazodone), 100 MG PO HS Physical Exam Vital Signs Date Time Temp Pulse Resp B/P (MAP) Pulse Ox O2 Delivery O2 Flow Rate FiO2 06/18/17 22:37 92 12 105/69 94 Room Air 06/18/17 21:50 83 06/18/17 19:59 80 16 100/74 98 Room Air 06/18/17 18:41 82 16 106/73 94 Room Air 06/18/17 17:50 92 06/18/17 17:32 36.7 94 14 117/70 95 Room Air Physical Exam VITALS: Vitals are noted on the nurse's note and reviewed by myself. Vital signs stable. GENERAL: This is a 41-year-old male, resting quietly in bed, appears to be visibly intoxicated, smells of ETOH. SKIN: The skin was without erythema, edema, or bruising. HEAD: Normocephalic atraumatic. EARS: External auditory canals clear. No hemotympanum. EYES: Pupils equal round and reactive to light and accommodation. NOSE: No deformities noted. MOUTH: No loose or chipped teeth. NECK: No cervical spine tenderness. HEART: Regular rate and rhythm without murmurs gallops or rubs. LUNGS: Clear to auscultation bilaterally without wheezes, rales or rhonchi. ABDOMEN: Soft, nontender. MUSCULOSKELETAL: Full range of motion throughout. Strength intact throughout. NEURO: Patient was alert and oriented to person place and time. Speech slurred. Gross sensation intact. Patient cooperative with examiner. Medical Decision & Procedures Laboratory Results 06/18/17 18:40 Red Blood Count 4.41, Mean Corpuscular Volume 86.4, Mean Corpuscular Hemoglobin 27.2, Mean Corpuscular Hemoglobin Concent 31.5, Mean Platelet Volume 12.6, Neutrophils (%) (Auto) 68.0, Lymphocytes (%) (Auto) 22.9, Monocytes (%) (Auto) 6.9, Eosinophils (%) (Auto) 1.2, Basophils (%) (Auto) 0.6, Neutrophils # (Auto) 5.78, Lymphocytes # (Auto) 1.94, Monocytes # (Auto) 0.59, Eosinophils # (Auto) 0.10, Basophils # (Auto) 0.05 06/18/17 18:40 Test 06/18/17 18:15 06/18/17 18:40 Urine Color YELLOW Urine Appearance CLEAR (CLEAR) Urine pH 5.5 (4.5-7.5) Urine Specific [place] 1.012 (1.000-1.030) Urine Protein NEG (NEG) Urine Glucose (UA) NEG (NEG) Urine Ketones NEG (NEG) Urine Occult Blood NEG (NEG) Urine Nitrite NEG (NEG) Urine Bilirubin NEG (NEG) Urine Urobilinogen NEG (NEG) Urine Leukocyte Esterase NEG (NEG) White Blood Count 8.49 K/uL (4.8-10.8) Red Blood Count 4.41 M/uL (4.7-6.1) Hemoglobin 12.0 g/dL (14.0-18.0) Hematocrit 38.1 % (42-52) Mean Corpuscular Volume 86.4 fL (80-100) Mean Corpuscular Hemoglobin 27.2 pg (25-34) Mean Corpuscular Hemoglobin Concent 31.5 g/dl (32-36) Platelet Count 154 K/uL (130-400) Mean Platelet Volume 12.6 fL (7.4-10.4) Neutrophils (%) (Auto) 68.0 % Lymphocytes (%) (Auto) 22.9 % Monocytes (%) (Auto) 6.9 % Eosinophils (%) (Auto) 1.2 % Basophils (%) (Auto) 0.6 % Neutrophils # (Auto) 5.78 K/uL (1.4-6.5) Lymphocytes # (Auto) 1.94 K/uL (1.2-3.4) Monocytes # (Auto) 0.59 K/uL (0.11-0.59) Eosinophils # (Auto) 0.10 K/uL (0-0.5) Basophils # (Auto) 0.05 K/uL (0-0.2) RDW Standard Deviation 56.5 fL (36.4-46.3) RDW Coefficient of Variation 17.8 % (11.5-14.5) Immature Granulocyte % (Auto) 0.4 % Immature Granulocyte # (Auto) 0.03 K/uL (0.00-0.02) Anion Gap 6.0 mmol/L (3-11) Est Creatinine Clear Calc Drug Dose 99.9 ml/min Estimated GFR () 108.4 Estimated GFR (Non- 93.6 BUN/Creatinine Ratio 10.4 (10-20) Calcium Level 8.0 mg/dl (8.5-10.1) Total Bilirubin 0.3 mg/dl (0.2-1) Direct Bilirubin 0.1 mg/dl (0-0.2) Aspartate Amino Transf (AST/SGOT) 73 U/L (15-37) Alanine Aminotransferase (ALT/SGPT) 112 U/L (12-78) Alkaline Phosphatase 93 U/L (45-117) Total Protein 6.5 gm/dl (6.4-8.2) Albumin 3.3 gm/dl (3.4-5.0) Ethyl Alcohol mg/dL 257.0 mg/dl (0-3) Medications Administered Medications (Trade) Dose Ordered Sig/Sera Route Start Time Stop Time Status Last Admin Dose Admin Nicotine (Nicoderm Cq 14MG Patch) 1 patch NOW STAT TD 06/18/17 22:47 06/18/17 22:48 DC 06/18/17 23:02 1 PATCH Medical Decision Differential diagnosis includes alcohol intoxication, drug intoxication, head trauma, among others. The patient was evaluated as above. He presents with acute alcohol intoxication. EtOH was found to be 257. Labs were otherwise unremarkable. The patient was monitored for several hours and allowed to rest. Case management spoke with the patient when he had become more sober. He is interested in going to rehabilitation. Case management was able to make arrangements for the patient to go to [facility] for rehabilitation. Patient will be transported there in the morning. Patient was given his nighttime dose of Topamax and a nicotine patch. His care was signed out to Benjamin Gaviria PA-C pending transportation to the rehabilitation facility. Medication Reconcilliation Current Medication List: was personally reviewed by me Blood Pressure Screening Patient's blood pressure: Normal blood pressure Impression Primary Impression: Alcohol abuse Departure Information Referrals No Doctor, Assigned (PCP) Forms HOME CARE DOCUMENTATION FORM, IMPORTANT VISIT INFORMATION Patient Instructions [facility]
--- NOTE | 2017-06-19 06:30 | EMERGENCY ROOM VISIT NOTE ---
ED Visit Note First contact with patient: 00:11 Patient care was assumed by me at the time of shift change from Anamaria Felton. Please see Ms. Vergara's dictation for full history of present illness and emergency Department course prior to my assumption of care. In short the patient is a self-reported alcoholic. He has been accepted to [facility] in [place] and is awaiting transport which is to occur at 12 noon. The patient has been fully cooperative with staff throughout his ER stay. He did eat a small amount of food and was able to drink. The patient has essentially been sleeping throughout his care with me. He is in stable condition and did not have any deterioration of his symptoms. EXAM GENERAL: Well-developed, well-nourished, white male, who is in no acute distress and resting comfortably. Patient is cooperative with the examination. HEART: Regular rate and rhythm without murmurs gallops or rubs. LUNGS: Clear to auscultation bilaterally without wheezes, rales or rhonchi. No retractions or accessory muscle use. NEURO: Patient was alert and mildly intoxicated but pleasant At this time the patient will care will be assumed by Zeeshan Osullivan PA-C. Please see Albina Osullivan's dictation for further patient course and final disposition. Problem List Medical Problems: (1) Asthma Status: Chronic (2) Seizure Status: Chronic Current/Historical Medications Scheduled Cetirizine (Zyrtec), 10 MG PO DAILY Erythromycin (Erythromycin), 250 MG PO QID Fluticasone Prop/Salmeterol (Advair Diskus 250-50 Mcg/Dose), 1 PUFFS INH BID Fluticasone Propionate (Nasal) (Flonase Allergy Relief), 1 SPRAY CHRISTINE DAILY Hydroxyzine Hcl (Atarax), 25 MG PO TID Melatonin (Melatonin), 20 MG PO HS Ofloxacin (Oph) (Ocuflox Oph Soln), 5 DROPS OTB BID Sertraline (Zoloft), 50 MG PO DAILY Topiramate (Topamax), 50 MG PO BID Trazodone Hcl (Trazodone), 100 MG PO HS Allergies Coded Allergies: Penicillins (Verified Allergy, Unknown, ., 06/16/17) Vital Signs Date Time Temp Pulse Resp B/P (MAP) Pulse Ox O2 Delivery O2 Flow Rate FiO2 06/19/17 00:26 89 14 94/49 94 Room Air 06/18/17 22:37 92 12 105/69 94 Room Air 06/18/17 21:50 83 06/18/17 19:59 80 16 100/74 98 Room Air 06/18/17 18:41 82 16 106/73 94 Room Air 06/18/17 17:50 92 06/18/17 17:32 36.7 94 14 117/70 95 Room Air Laboratory Results 06/18/17 18:40 Red Blood Count 4.41, Mean Corpuscular Volume 86.4, Mean Corpuscular Hemoglobin 27.2, Mean Corpuscular Hemoglobin Concent 31.5, Mean Platelet Volume 12.6, Neutrophils (%) (Auto) 68.0, Lymphocytes (%) (Auto) 22.9, Monocytes (%) (Auto) 6.9, Eosinophils (%) (Auto) 1.2, Basophils (%) (Auto) 0.6, Neutrophils # (Auto) 5.78, Lymphocytes # (Auto) 1.94, Monocytes # (Auto) 0.59, Eosinophils # (Auto) 0.10, Basophils # (Auto) 0.05 06/18/17 18:40 Test 06/18/17 18:15 06/18/17 18:40 Urine Color YELLOW Urine Appearance CLEAR (CLEAR) Urine pH 5.5 (4.5-7.5) Urine Specific [place] 1.012 (1.000-1.030) Urine Protein NEG (NEG) Urine Glucose (UA) NEG (NEG) Urine Ketones NEG (NEG) Urine Occult Blood NEG (NEG) Urine Nitrite NEG (NEG) Urine Bilirubin NEG (NEG) Urine Urobilinogen NEG (NEG) Urine Leukocyte Esterase NEG (NEG) White Blood Count 8.49 K/uL (4.8-10.8) Red Blood Count 4.41 M/uL (4.7-6.1) Hemoglobin 12.0 g/dL (14.0-18.0) Hematocrit 38.1 % (42-52) Mean Corpuscular Volume 86.4 fL (80-100) Mean Corpuscular Hemoglobin 27.2 pg (25-34) Mean Corpuscular Hemoglobin Concent 31.5 g/dl (32-36) Platelet Count 154 K/uL (130-400) Mean Platelet Volume 12.6 fL (7.4-10.4) Neutrophils (%) (Auto) 68.0 % Lymphocytes (%) (Auto) 22.9 % Monocytes (%) (Auto) 6.9 % Eosinophils (%) (Auto) 1.2 % Basophils (%) (Auto) 0.6 % Neutrophils # (Auto) 5.78 K/uL (1.4-6.5) Lymphocytes # (Auto) 1.94 K/uL (1.2-3.4) Monocytes # (Auto) 0.59 K/uL (0.11-0.59) Eosinophils # (Auto) 0.10 K/uL (0-0.5) Basophils # (Auto) 0.05 K/uL (0-0.2) RDW Standard Deviation 56.5 fL (36.4-46.3) RDW Coefficient of Variation 17.8 % (11.5-14.5) Immature Granulocyte % (Auto) 0.4 % Immature Granulocyte # (Auto) 0.03 K/uL (0.00-0.02) Anion Gap 6.0 mmol/L (3-11) Est Creatinine Clear Calc Drug Dose 99.9 ml/min Estimated GFR () 108.4 Estimated GFR (Non- 93.6 BUN/Creatinine Ratio 10.4 (10-20) Calcium Level 8.0 mg/dl (8.5-10.1) Total Bilirubin 0.3 mg/dl (0.2-1) Direct Bilirubin 0.1 mg/dl (0-0.2) Aspartate Amino Transf (AST/SGOT) 73 U/L (15-37) Alanine Aminotransferase (ALT/SGPT) 112 U/L (12-78) Alkaline Phosphatase 93 U/L (45-117) Total Protein 6.5 gm/dl (6.4-8.2) Albumin 3.3 gm/dl (3.4-5.0) Ethyl Alcohol mg/dL 257.0 mg/dl (0-3) Medications Administered Medications (Trade) Dose Ordered Sig/Sera Route Start Time Stop Time Status Last Admin Dose Admin Nicotine (Nicoderm Cq 14MG Patch) 1 patch NOW STAT TD 06/18/17 22:47 06/18/17 22:48 DC 06/18/17 23:02 1 PATCH Topiramate (Topamax Tab) 50 mg NOW STAT PO 06/18/17 23:26 06/18/17 23:28 DC 06/19/17 00:24 50 MG Departure Information Impression Primary Impression: Alcohol abuse Referrals No Doctor, Assigned (PCP) Forms HOME CARE DOCUMENTATION FORM, IMPORTANT VISIT INFORMATION Patient Instructions [facility]
[2017-06-19] MEDS ORDERED: NICOTINE POLACRILEX 2 MG GUM MT STA (10:43)
[2017-06-19] MEDS ORDERED: NICOTINE 21 MG/24 HR TDSY TD STA (11:23)
[2017-06-19 12:12] VITALS: BP 128/77; PULSE 62; O2SAT 94
--- NOTE | 2017-06-19 12:12 | EMERGENCY ROOM VISIT NOTE ---
ED Visit Note First contact with patient: 07:19 This is a 41-year-old male whose care was transferred to dc from [facility] at change of shift. At the time of transfer of care, we were awaiting patient transport to [facility] in [place] for alcohol detox. Further details of the patient's visit, lab work and ED intervention is well documented in the previous dictations. The patient had no further needs under my care, and left our emergency department around noon time, and will be transferred to the [facility] in [place].
== END 2017-06-19 12:15 | disposition other institution (70) ==
LOC: EDBD 17:02 → C.EDB 17:05 → C.EDA 06-19 12:15
DX: F10.229 Alcohol dependence with intoxication, unspecified (principal); J45.909 Unspecified asthma, uncomplicated; Z82.0 Family history of epilepsy and other diseases of the nervous system; Z83.3 Family history of diabetes mellitus; Z82.49 Family history of ischemic heart disease and other diseases of the circulatory system; Z80.9 Family history of malignant neoplasm, unspecified; F17.210 Nicotine dependence, cigarettes, uncomplicated; Z79.899 Other long term (current) drug therapy; Y90.8 Blood alcohol level of 240 mg/100 ml or more

== ENCOUNTER 2021-03-13 02:30 | Observation (INO) ==
[2021-03-13] MEDS ORDERED: DEXAMETHASONE SOD INJ 4 MG/ML VIAL IV STA (03:49)
[2021-03-13] MEDS ORDERED: ALBUT/IPRATROP 3MG/0.5MG NEB 3 ML VIAL NEB STA (03:51)
[2021-03-13 03:58] LABS: Mean Corpuscular Hgb Conc 30.2 g/dL (32-36); Nucleated RBC # (auto) 0.29 K/uL (0-0); Nucleated RBC % (auto) 1.6 %
[2021-03-13 04:07] LABS: Albumin Level 2.9 gm/dl (3.4-5.0); BUN Creatinine Ratio 10.4 (10-20); Calcium 7.8 mg/dl (8.5-10.1); Creatinine Clr Calc Pharmacy 158.1 ml/min; Est GFR (African American) 134.4; Est GFR (Non-African American) 115.9; Magnesium 1.7 mg/dl (1.8-2.4); Potassium 3.4 mmol/L (3.5-5.1)
[2021-03-13 04:10] LABS: Hematocrit (blood only) 32.1 % (42-52); Hemoglobin 9.7 g/dL (14.0-18.0); INR 1.2 (0.9-1.1); Mean Corpuscular Hemoglobin 23.1 pg (25-34); Mean Corpuscular Volume 76.4 fL (80-100); Partial Thromboplastin Time 26.3 Seconds (21.0-31.0); RDW Coefficient of Variation 26.2 % (11.5-14.5); RDW Standard Deviation 70.6 fL (36.4-46.3); White Blood Count 18.58 K/uL (4.8-10.8)
[2021-03-13 04:34] LABS: Albumin Globulin Ratio 0.7 (0.9-2); Bilirubin,Total 0.9 mg/dl (0.2-1); Globulin 4.2 gm/dl (2.5-4.0); Total Protein 7.1 gm/dl (6.4-8.2); Troponin I 0.05 ng/ml (0-0.045)
[2021-03-13 04:45] LABS: Anisocytosis Present; Basophils # (auto) 0.11 K/uL (0-0.2); Basophils % (auto) 0.6 %; Eosinophils # (auto) 0.12 K/uL (0-0.5); Eosinophils % (auto) 0.6 %; Hypochromasia Present; Immature Granulocytes # (auto) 0.18 K/uL (0.00-0.02); Lymphocytes % (auto) 6.5 %; Monocytes # (auto) 1.05 K/uL (0.11-0.59); Monocytes % (auto) 5.7 %; Neutrophils # (auto) 15.92 K/uL (1.4-6.5); Neutrophils % (auto) 85.6 %; Ovalocytes 1+; Platelet Count 120 K/uL (130-400); Platelet Estimate Decreased (Normal); Polychromasia 1+
[2021-03-13 05:09] LABS: D Dimer 4970 ug/L FEU (0-500)
[2021-03-13] MEDS ORDERED: OPTIRAY 350 500ml IV ONE (05:18)
[2021-03-13 06:12] LABS: Appearance Urine Clear (Clear); Bilirubin Urine Negative (Negative); Blood Urine Negative (Negative); Color Urine Yellow; Glucose Urine UA Negative (Negative); Ketones Urine Negative (Negative); Leukocyte Esterase Urine Negative (Negative); Nitrite Urine Negative (Negative); Protein Urine Negative (Negative); Urobilinogen Urine Negative (Negative)
--- NOTE | 2021-03-13 06:14 | Emergency Department Note ---
Impression & Plan Hypoxia ED Provider Note NAME: OMAR HOOD AGE: 45 SEX: M ARRIVES VIA: Ambulance INFORMANT: Patient ED PROVIDER(S): Bernadette Ch DO CHIEF COMPLAINT: Cough and shortness of breath PLAN: Disposition: Admitted to the [facility]ist service-Dr. Rehman Condition: Fair MEDICAL DECISION MAKING: This is a 45-year-old male patient with a history of severe iron deficiency anemia and hepatitis C who presents to the emergency department with extreme shortness of breath and hypoxia. The patient had just been discharged from [facility] when he presents to our emergency department with extreme shortness of breath and productive cough. CT scan of the chest showed evidence of pleural effusion and questionable viral pneumonitis versus a viral pneumonia. However, the patient was moderately hypoxic and required O2. Covid testing was negative. The patient had significant leukocytosis with a white blood cell count of greater than 18,000. His D-dimer had gone from approximately 1000 to 4024 hours. There is no evidence of pulmonary emboli. Patient did have an elevated troponin. The patient had received 6 units of packed red blood cells in the past 2 days while as an inpatient at [facility]. His hemoglobin went from approximately 2 to approximately 9. I discussed the case with the [facility] hospitalist and they will evaluate for further inpatient care here at this hospital. Triage Nursing notes reviewed and agree with them. Prior medical records reviewed by obtaining the discharge summary from [facility]. Vital Signs: reviewed and remarkable for hypoxia and tachycardia Differential diagnosis: COVID-19, pneumonia, congestive heart failure, alcohol intoxication, alcohol withdrawal ER treatment provided: IV Decadron IV Levaquin DuoNeb treatment Diagnostics interpreted by me: ECG: Sinus tachycardia at a rate of [address] segment elevation or signs of ischemia. There is no ectopy. QTC is 438 ms. Cardiac Monitoring: Sinus tachycardia at 120 Laboratory studies: See below Imaging studies: As per stat read CT chest with contrast: Limitations with respiratory artifact. There is no evidence of pulmonary embolism. Hiatal hernia with the superior aspect of the stomach noted in the posterior mediastinum. Mucosal prominence of the stomach is presumed related to near complete decompression. Layering bilateral pleural effusions, right greater than left with right effusion measuring approximately 2.6 cm. Subsegmental presumed compressive atelectasis predominantly adjacent to the pleural effusions. No pneumothorax. Subtle groundglass opacities in the posterior aspect of the left upper lobe are nonspecific and may represent residual viral infection or atelectasis. The thoracic aorta and cardiac chambers are unremarkable. No pericardial effusion. No significant mediastinal or hilar adenopathy. No acute osseous or significant overlying soft tissue abnormality. Incidental anterior ankylosis near the thoracic lumbar junction with accentuated kyphosis. Chest x-ray: As per my interpretation cardiomegaly with a hiatal hernia HPI: 45/M arrives for evaluation of shortness of. The patient was admitted to [facility] over the past 2 days and was discharged from there earlier today. The patient is an extremely poor historian but it seems that he may have been admitted there for an asthma exacerbation. He states that upon discharge he had 2 beers and smoked 2 cigarettes and was not feeling any better so he came here. The patient initially told me that he was Covid positive but upon obtaining the discharge summary from that hospital, testing revealed that he was Covid negative. The patient went on to tell me that he was actually seen at that hospital originally after having a seizure approximately 1 week ago and then another seizure just 5 days ago. The patient denies having a history of epilepsy or seizures but states that he had seizures when he was a young child. Patient denies that he is currently taking any antiseizure medications. The patient explains that he was supposed to get an iron supplement filled upon discharge from [facility] but did not do so. ROS: See above HPI for pertinent positives & negatives. A total of 10 systems reviewed and were otherwise negative. PAST MEDICAL HISTORY:According to the discharge summary, the patient has a history of severe iron deficiency anemia with a diagnosed hemoglobin of 2.6 upon intake at [facility].; Positive hepatitis C antibody; tobacco use; alcohol use PAST SURGICAL HISTORY:See Below FAMILY HISTORY:See Below SOCIAL HISTORY:The patient lives alone HOME MEDICATIONS:See list ALLERGIES:See list VITALS:See Below PHYSICAL EXAMINATION: HEENT: Head - normocephalic and atraumatic Pupils are equal, round, and reactive to light. Extraocular eye muscles are intact, and sclera are moderately injected and the eyes are tearing. Nose - moist nasal mucosa without discharge. Mouth - moist buccal mucosa. Oropharynx is nonerythematous and there is no tonsillar exudate or edema noted. Neck: Supple; no JVD, nuchal rigidity, cervical lymphadenopathy, or auscultated bruits. Heart: Tachycardic rate and regular rhythm. There is a normal S1 and S2 with no murmurs, clicks, or gallops appreciated. Lungs: Expiratory wheezing with rhonchi in all lung berrios Abdomen: Soft, completely nontender, nondistended, with good bowel sounds. There are no palpable pulsatile masses or hepatosplenomegaly. There is no guar ding, rigidity, or rebound noted. Extremities: No evidence of cyanosis, clubbing, or edema. There are easily palpable peripheral pulses. Skin: warm and dry with good turgor and no rashes. ED COURSE: Times/Reassessments: 0325: Patient was evaluated in room B2. A complete history and physical was performed. An order was placed for continuous cardiac monitoring. The patient was in a sinus tachycardia at a rate of 120. A portable chest x-ray was performed. Records were obtained from [facility]. Patient was placed on supplemental oxygen as his O2 saturation was only 86% on room air. He was given a DuoNeb treatment. The patient's D-dimer had gone up to 4000 from 1000 yesterday. The patient will go for CT scan of the chest to rule out PE. Patient was having a significant productive cough to the point that he was gagging at times. The patient was given 10 mg of IV Decadron. Patient's O2 saturation remained stable on supplemental oxygen. He was much more comfortable. Patient had significant leukocytosis and CT scan was concerning for possible pneumonia. The patient was given 750 mg of IV Levaquin. I reevaluated the patient multiple times throughout his stay here in the emergency department. [facility] will [facility] for further management. I have personally spent greater than 95 minutes of critical care time in the direct management of this patient. This includes bedside care, interpretation of diagnostic studies, and testing, discussion with consultants, patient, and family members, and other required patient management activities. This 95 minutes is in excess of all separately billable procedures. Bernadette Ch DO Past Med/Surg History Medical History (Updated 03/13/21 @ 17:33 by Bernadette Ch DO) Alcohol abuse Drug abuse Family History Other No significant family history Social History (Reviewed 06/26/19 @ 20:23 by Edith Salas Smoking Status: Current every day smoker Tobacco Type: Cigarettes and E-cigarettes / Vaping Cigarettes Per Day: 12; Second Hand Exposure: Yes; Do You Dip or Chew Tobacco: No; Tobacco Cessation Education Requested by Patient: No Hx Alcohol Use: Yes Alcohol type: beer Hx Substance Use: Yes Last Used Substance: Hours (ago) Last Used Substance Other:: 03/12/2021 "helps appitite" Preferred Language: Filipino Communication Ability: Effective Target Developer Required: No Beliefs That Will Affect Care: None Current Living Situation: Alone Current Living Situation Comment: states he lives with a friend at this time. Other Information That Helps Us Care for You: No Feels Safe at Home: Yes Safety Concerns: Feels Safe At This Time Assistive Devices: Oxygen - Continuous Allergies Allergies Allergy/AdvReac Type Severity Reaction Status Date / Time Penicillins Allergy Unknown Unknown Verified 03/13/21 08:21 Home Meds Home Medications Medication Instructions Recorded Confirmed No Known Home Medications 03/13/21 03/13/21 Results & Data (ED) Vital Signs Vital Signs - 24 hr 03/13/21 02:30 03/13/21 02:41 03/13/21 04:23 Temperature 36.9 C Temperature Source Oral Pulse Rate 129 H 128 H Pulse Rate [Apical] 115 H Pulse Rate from SpO2 Sensor 128 H Pulse Rhythm Regular Pulse Strength Normal Respiratory Rate 30 H 21 20 Respiratory Effort / Characteristics Accessory Muscle Use Labored Short of Breath Spontaneous Respiratory Depth Deep Respiratory Pattern Regular Blood Pressure 146/76 H 145/76 H Blood Pressure Mean 99 99 Blood Pressure Position Sitting Pulse Oximetry 86 L 96 98 Oxygen Delivery Method Room Air Nasal Cannula Nasal Cannula Oxygen Flow Rate 2 4 Sepsis Recent Fever Within 48 Hours No Sepsis New/Unexplained Change in Mental Status No Sepsis Action Taken by Nursing No Action Required 03/13/21 04:30 03/13/21 05:00 03/13/21 06:06 Temperature Temperature Source Pulse Rate 107 H 96 H 123 H Pulse Rate [Apical] Pulse Rate from SpO2 Sensor 106 H 99 H 123 H Pulse Rhythm Pulse Strength Respiratory Rate 18 25 H 24 Respiratory Effort / Characteristics Respiratory Depth Respiratory Pattern Blood Pressure 130/91 Blood Pressure Mean 104 Blood Pressure Position Pulse Oximetry 97 99 96 Oxygen Delivery Method Nasal Cannula Nasal Cannula Nasal Cannula Oxygen Flow Rate 2 2 2 Sepsis Recent Fever Within 48 Hours Sepsis New/Unexplained Change in Mental Status Sepsis Action Taken by Nursing 03/13/21 07:00 03/13/21 07:30 03/13/21 08:00 Temperature Temperature Source Pulse Rate 95 H 90 108 H Pulse Rate [Apical] Pulse Rate from SpO2 Sensor 95 H 91 H Pulse Rhythm Pulse Strength Respiratory Rate 18 20 19 Respiratory Effort / Characteristics Respiratory Depth Respiratory Pattern Blood Pressure Blood Pressure Mean Blood Pressure Position Pulse Oximetry 99 100 Oxygen Delivery Method Nasal Cannula Nasal Cannula Nasal Cannula Oxygen Flow Rate 2 2 2 Sepsis Recent Fever Within 48 Hours Sepsis New/Unexplained Change in Mental Status Sepsis Action Taken by Nursing 03/13/21 08:18 Temperature Temperature Source Pulse Rate Pulse Rate [Apical] Pulse Rate from SpO2 Sensor 104 H Pulse Rhythm Pulse Strength Respiratory Rate Respiratory Effort / Characteristics Respiratory Depth Respiratory Pattern Blood Pressure 153/113 H Blood Pressure Mean 126 Blood Pressure Position Pulse Oximetry 96 Oxygen Delivery Method Nasal Cannula Oxygen Flow Rate 2 Sepsis Recent Fever Within 48 Hours Sepsis New/Unexplained Change in Mental Status Sepsis Action Taken by Nursing Laboratory Data Result diagrams: 03/13/21 02:45 03/13/21 02:45 Lab Results 03/13/21 03/13/21 03/13/21 Range/Units 02:45 02:45 02:45 WBC 18.58 H (4.8-10.8) K/uL RBC 4.20 L (4.7-6.1) M/uL Hgb 9.7 L (14.0-18.0) g/dL Hct 32.1 L (42-52) % MCV 76.4 L (80-100) fL MCH 23.1 L (25-34) pg MCHC 30.2 L (32-36) g/dL RDW Std Deviation 70.6 H (36.4-46.3) fL RDW Coeff of Trin[place] 26.2 H (11.5-14.5) % Plt Count 120 L (130-400) K/uL Immature Gran % (Auto) 1.0 % Neut % (Auto) 85.6 % Lymph % (Auto) 6.5 % Douglas % (Auto) 5.7 % Eos % (Auto) 0.6 % Baso % (Auto) 0.6 % Neut # (Auto) 15.92 H (1.4-6.5) K/uL Lymph # (Auto) 1.20 (1.2-3.4) K/uL Douglas # (Auto) 1.05 H (0.11-0.59) K/uL Eos # (Auto) 0.12 (0-0.5) K/uL Baso # (Auto) 0.11 (0-0.2) K/uL Immature Gran # (Auto) 0.18 H (0.00-0.02) K/uL Absolute Nucleated RBC 0.29 H (0-0) K/uL Nucleated RBC % (auto) 1.6 % Platelet Estimate Decreased L (Normal) Polychromasia 1+ Hypochromasia Present Anisocytosis Present Ovalocytes 1+ PT 12.0 (9.0-12.0) Seconds INR 1.2 H (0.9-1.1) APTT 26.3 (21.0-31.0) Seconds PTT Ratio 1.0 D-Dimer (0-500) ug/L FEU Sodium 137 (136-145) mmol/L Potassium 3.4 L (3.5-5.1) mmol/L Chloride 106 (98-107) mmol/L Carbon Dioxide 25 (21-32) mmol/L Anion Gap 6.0 (3-11) BUN 7 (7-18) mg/dl Creatinine 0.66 (0.6-1.4) mg/dl Est Cr Clr Drug Dosing 158.1 ml/min Est GFR ( Amer) 134.4 Est GFR (Non-Af Amer) 115.9 BUN/Creatinine Ratio 10.4 (10-20) Glucose 126 H (70-99) mg/dl Lactate (0.4-2.0) mmol/L Calcium 7.8 L (8.5-10.1) mg/dl Magnesium 1.7 L (1.8-2.4) mg/dl Total Bilirubin 0.9 (0.2-1) mg/dl AST 40 H (15-37) U/L ALT 225 H (12-78) U/L Alkaline Phosphatase 143 H (45-117) U/L Troponin I 0.050 H* (0-0.045) ng/ml NT-Pro-B Natriuret Pep (0-450) pg/ml Total Protein 7.1 (6.4-8.2) gm/dl Albumin 2.9 L (3.4-5.0) gm/dl Globulin 4.2 H (2.5-4.0) gm/dl Albumin/Globulin Ratio 0.7 L (0.9-2) Urine Color Urine Appearance (Clear) Urine pH (4.5-7.5) Ur Specific [place] (1.000-1.030) Urine Protein (Negative) Urine Glucose (UA) (Negative) Urine Ketones (Negative) Urine Blood (Negative) Urine Nitrite (Negative) Urine Bilirubin (Negative) Urine Urobilinogen (Negative) Ur Leukocyte Esterase (Negative) Urine Opiates Screen (Neg) Ur Methadone, Qual (Neg) Urine Barbiturates (Neg) Ur Phencyclidine (PCP) (Neg) U Amphetamin/Meth Scrn (Neg) MDMA (Ecstasy) Screen (Neg) U Benzodiazepines Scrn (Neg) Ur Cocaine Metabolite (Neg) U Marijuana (THC) Screen (Neg) Ethyl Alcohol mg/dL (0-3) mg/dl COVID-19 Eval Order SARS-CoV-2 (PCR) (Negative) Influenza Type A (PCR) (Neg) Influenza Type B (PCR) (Neg) RSV (RT-PCR) (Neg) 03/13/21 03/13/21 03/13/21 Range/Units 02:45 02:45 03:15 WBC (4.8-10.8) K/uL RBC (4.7-6.1) M/uL Hgb (14.0-18.0) g/dL Hct (42-52) % MCV (80-100) fL MCH (25-34) pg MCHC (32-36) g/dL RDW Std Deviation (36.4-46.3) fL RDW Coeff of [place] (11.5-14.5) % Plt Count (130-400) K/uL Immature Gran % (Auto) % Neut % (Auto) % Lymph % (Auto) % Douglas % (Auto) % Eos % (Auto) % Baso % (Auto) % Neut # (Auto) (1.4-6.5) K/uL Lymph # (Auto) (1.2-3.4) K/uL Douglas # (Auto) (0.11-0.59) K/uL Eos # (Auto) (0-0.5) K/uL Baso # (Auto) (0-0.2) K/uL Immature Gran # (Auto) (0.00-0.02) K/uL Absolute Nucleated RBC (0-0) K/uL Nucleated RBC % (auto) % Platelet Estimate (Normal) Polychromasia Hypochromasia Anisocytosis Ovalocytes PT (9.0-12.0) Seconds INR (0.9-1.1) APTT (21.0-31.0) Seconds PTT Ratio D-Dimer 4970 H* (0-500) ug/L FEU Sodium (136-145) mmol/L Potassium (3.5-5.1) mmol/L Chloride (98-107) mmol/L Carbon Dioxide (21-32) mmol/L Anion Gap (3-11) BUN (7-18) mg/dl Creatinine (0.6-1.4) mg/dl Est Cr Clr Drug Dosing ml/min Est GFR ( Amer) Est GFR (Non-Af Amer) BUN/Creatinine Ratio (10-20) Glucose (70-99) mg/dl Lactate (0.4-2.0) mmol/L Calcium (8.5-10.1) mg/dl Magnesium (1.8-2.4) mg/dl Total Bilirubin (0.2-1) mg/dl AST (15-37) U/L ALT (12-78) U/L Alkaline Phosphatase (45-117) U/L Troponin I (0-0.045) ng/ml NT-Pro-B Natriuret Pep 979 H (0-450) pg/ml Total Protein (6.4-8.2) gm/dl Albumin (3.4-5.0) gm/dl Globulin (2.5-4.0) gm/dl Albumin/Globulin Ratio (0.9-2) Urine Color Urine Appearance (Clear) Urine pH (4.5-7.5) Ur Specific [place] (1.000-1.030) Urine Protein (Negative) Urine Glucose (UA) (Negative) Urine Ketones (Negative) Urine Blood (Negative) Urine Nitrite (Negative) Urine Bilirubin (Negative) Urine Urobilinogen (Negative) Ur Leukocyte Esterase (Negative) Urine Opiates Screen (Neg) Ur Methadone, Qual (Neg) Urine Barbiturates (Neg) Ur Phencyclidine (PCP) (Neg) U Amphetamin/Meth Scrn (Neg) MDMA (Ecstasy) Screen (Neg) U Benzodiazepines Scrn (Neg) Ur Cocaine Metabolite (Neg) U Marijuana (THC) Screen (Neg) Ethyl Alcohol mg/dL 27.0 H (0-3) mg/dl COVID-19 Eval Order SARS-CoV-2 (PCR) (Negative) Influenza Type A (PCR) (Neg) Influenza Type B (PCR) (Neg) RSV (RT-PCR) (Neg) 03/13/21 03/13/21 03/13/21 Range/Units 04:44 04:44 05:26 WBC (4.8-10.8) K/uL RBC (4.7-6.1) M/uL Hgb (14.0-18.0) g/dL Hct (42-52) % MCV (80-100) fL MCH (25-34) pg MCHC (32-36) g/dL RDW Std Deviation (36.4-46.3) fL RDW Coeff of [place] (11.5-14.5) % Plt Count (130-400) K/uL Immature Gran % (Auto) % Neut % (Auto) % Lymph % (Auto) % Douglas % (Auto) % Eos % (Auto) % Baso % (Auto) % Neut # (Auto) (1.4-6.5) K/uL Lymph # (Auto) (1.2-3.4) K/uL Douglas # (Auto) (0.11-0.59) K/uL Eos # (Auto) (0-0.5) K/uL Baso # (Auto) (0-0.2) K/uL Immature Gran # (Auto) (0.00-0.02) K/uL Absolute Nucleated RBC (0-0) K/uL Nucleated RBC % (auto) % Platelet Estimate (Normal) Polychromasia Hypochromasia Anisocytosis Ovalocytes PT (9.0-12.0) Seconds INR (0.9-1.1) APTT (21.0-31.0) Seconds PTT Ratio D-Dimer (0-500) ug/L FEU Sodium (136-145) mmol/L Potassium (3.5-5.1) mmol/L Chloride (98-107) mmol/L Carbon Dioxide (21-32) mmol/L Anion Gap (3-11) BUN (7-18) mg/dl Creatinine (0.6-1.4) mg/dl Est Cr Clr Drug Dosing ml/min Est GFR ( Amer) Est GFR (Non-Af Amer) BUN/Creatinine Ratio (10-20) Glucose (70-99) mg/dl Lactate 0.9 (0.4-2.0) mmol/L Calcium (8.5-10.1) mg/dl Magnesium (1.8-2.4) mg/dl Total Bilirubin (0.2-1) mg/dl AST (15-37) U/L ALT (12-78) U/L Alkaline Phosphatase (45-117) U/L Troponin I (0-0.045) ng/ml NT-Pro-B Natriuret Pep (0-450) pg/ml Total Protein (6.4-8.2) gm/dl Albumin (3.4-5.0) gm/dl Globulin (2.5-4.0) gm/dl Albumin/Globulin Ratio (0.9-2) Urine Color Urine Appearance (Clear) Urine pH (4.5-7.5) Ur Specific [place] (1.000-1.030) Urine Protein (Negative) Urine Glucose (UA) (Negative) Urine Ketones (Negative) Urine Blood (Negative) Urine Nitrite (Negative) Urine Bilirubin (Negative) Urine Urobilinogen (Negative) Ur Leukocyte Esterase (Negative) Urine Opiates Screen (Neg) Ur Methadone, Qual (Neg) Urine Barbiturates (Neg) Ur Phencyclidine (PCP) (Neg) U Amphetamin/Meth Scrn (Neg) MDMA (Ecstasy) Screen (Neg) U Benzodiazepines Scrn (Neg) Ur Cocaine Metabolite (Neg) U Marijuana (THC) Screen (Neg) Ethyl Alcohol mg/dL (0-3) mg/dl COVID-19 Eval Order [facility] at [facility] SARS-CoV-2 (PCR) NEGATIVE (Negative) Influenza Type A (PCR) Negative (Neg) Influenza Type B (PCR) Negative (Neg) RSV (RT-PCR) Negative (Neg) 03/13/21 03/13/21 Range/Units 05:40 05:40 WBC (4.8-10.8) K/uL RBC (4.7-6.1) M/uL Hgb (14.0-18.0) g/dL Hct (42-52) % MCV (80-100) fL MCH (25-34) pg MCHC (32-36) g/dL RDW Std Deviation (36.4-46.3) fL RDW Coeff of [place] (11.5-14.5) % Plt Count (130-400) K/uL Immature Gran % (Auto) % Neut % (Auto) % Lymph % (Auto) % Douglas % (Auto) % Eos % (Auto) % Baso % (Auto) % Neut # (Auto) (1.4-6.5) K/uL Lymph # (Auto) (1.2-3.4) K/uL Douglas # (Auto) (0.11-0.59) K/uL Eos # (Auto) (0-0.5) K/uL Baso # (Auto) (0-0.2) K/uL Immature Gran # (Auto) (0.00-0.02) K/uL Absolute Nucleated RBC (0-0) K/uL Nucleated RBC % (auto) % Platelet Estimate (Normal) Polychromasia Hypochromasia Anisocytosis Ovalocytes PT (9.0-12.0) Seconds INR (0.9-1.1) APTT (21.0-31.0) Seconds PTT Ratio D-Dimer (0-500) ug/L FEU Sodium (136-145) mmol/L Potassium (3.5-5.1) mmol/L Chloride (98-107) mmol/L Carbon Dioxide (21-32) mmol/L Anion Gap (3-11) BUN (7-18) mg/dl Creatinine (0.6-1.4) mg/dl Est Cr Clr Drug Dosing ml/min Est GFR ( Amer) Est GFR (Non-Af Amer) BUN/Creatinine Ratio (10-20) Glucose (70-99) mg/dl Lactate (0.4-2.0) mmol/L Calcium (8.5-10.1) mg/dl Magnesium (1.8-2.4) mg/dl Total Bilirubin (0.2-1) mg/dl AST (15-37) U/L ALT (12-78) U/L Alkaline Phosphatase (45-117) U/L Troponin I (0-0.045) ng/ml NT-Pro-B Natriuret Pep (0-450) pg/ml Total Protein (6.4-8.2) gm/dl Albumin (3.4-5.0) gm/dl Globulin (2.5-4.0) gm/dl Albumin/Globulin Ratio (0.9-2) Urine Color Yellow Urine Appearance Clear (Clear) Urine pH 6.0 (4.5-7.5) Ur Specific [place] 1.010 (1.000-1.030) Urine Protein Negative (Negative) Urine Glucose (UA) Negative (Negative) Urine Ketones Negative (Negative) Urine Blood Negative (Negative) Urine Nitrite Negative (Negative) Urine Bilirubin Negative (Negative) Urine Urobilinogen Negative (Negative) Ur Leukocyte Esterase Negative (Negative) Urine Opiates Screen Neg (Neg) Ur Methadone, Qual Neg (Neg) Urine Barbiturates Neg (Neg) Ur Phencyclidine (PCP) Neg (Neg) U Amphetamin/Meth Scrn Neg (Neg) MDMA (Ecstasy) Screen Neg (Neg) U Benzodiazepines Scrn Neg (Neg) Ur Cocaine Metabolite Neg (Neg) U Marijuana (THC) Screen Neg (Neg) Ethyl Alcohol mg/dL (0-3) mg/dl COVID-19 Eval Order SARS-CoV-2 (PCR) (Negative) Influenza Type A (PCR) (Neg) Influenza Type B (PCR) (Neg) RSV (RT-PCR) (Neg) Administered Medications Albuterol (Albut/Ipratrop 3mg/0.5mg Neb 3 Ml Vial) 3 ml NEB QIDR PADMINI Stop: 04/12/21 12:42 Last Admin: 03/13/21 14:05 Dose: Not Given Documented by: [id number] Admin: 03/13/21 14:05 Dose: 3 ml Documented by: [id number] Methylprednisolone 40 mg/ (Syringe) 0.64 mls @ 1.5 mls/min IV BID PADMINI Stop: 04/12/21 13:14 Last Admin: 03/13/21 14:37 Dose: 1.5 mls/min Documented by: [id number] Discontinued Medications Albuterol (Albut/Ipratrop 3mg/0.5mg Neb 3 Ml Vial) 3 ml NEB NOW STA Stop: 03/13/21 03:52 Last Admin: 03/13/21 04:22 Dose: 3 ml Documented by: [id number] Dexamethasone (Dexamethasone Sod Inj 4 Mg/Ml Vial) 10 mg IV NOW STA Stop: 03/13/21 03:50 Last Admin: 03/13/21 04:42 Dose: 10 mg Documented by: [id number] Levofloxacin/Dextrose (Levaquin/D5w) 750 mg in 150 mls @ 100 mls/hr IV NOW STA Stop: 03/13/21 08:29 Last Infusion: 03/13/21 10:00 Dose: 0 mls/hr Documented by: [id number] Admin: 03/13/21 08:17 Dose: 100 mls/hr Documented by: [id number] Ioversol (Optiray 350 500ml) 120 ml IV ONCE ONE Stop: 03/13/21 05:19 Last Admin: 03/13/21 05:19 Dose: 120 ml Documented by: [id number] Imaging Data Radiologist's Impression: Chest X-Ray 03/13/21 03:50 XR chest 1V portable CLINICAL HISTORY: Dyspnea COMPARISON STUDY: 06/27/2019 FINDINGS: The heart is enlarged. There is a retrocardiac opacity consistent with a hiatal hernia. There is no failure. There is no focal pulmonary consolidation. There are no significant pleural effusions.[ IMPRESSION: 1. Mild cardiomegaly 2. Moderate hiatal hernia 3. No acute findings. ACT 112: Negative or not required by law. Electronically signed by: Devyn Clark M.D. 03/13/2021 8:37 AM Chest CTA 03/13/21 05:12 CT angio chest PE protocol CT DOSE: 464.66 mGy.cm HISTORY: 45 years-old Male with PE. Acute shortness of breath. COVID Positive. TECHNIQUE: Multiple CTA images of the chest were obtained after the intravenous administration of 120 ml Optiray. Coronal and sagittal MIPS were obtained from the axial data set and were submitted for review. All measurements were obtained according to NASCET criteria. A dose lowering technique was utilized adhering to the principles of ALARA. COMPARISON: Chest radiograph of same day FINDINGS: CTA: The heart is normal in size. No pericardial effusion. No thoracic aortic aneurysm or dissection. There is patency of the imaged great vessels. The pulmonary artery is opacified to level of the segmental branches and demonstrates no filling defects to suggest thromboembolic disease. CT CHEST: No thyroid nodule. Mild subcarinal adenopathy measures up to 11 mm. Small layering pleural effusions. Dependent bibasilar consolidation. Subtle patchy subpleural biapical groundglass densities. Mild bronchial wall thickening. Intralobular septal thickening of the lung bases with mild right greater than left bibasilar ground glass densities. Central airways are patent. Large hiatal hernia with mid and distal esophageal wall thickening. Hepatosplenomegaly with hepatic steatosis. Unremarkable soft tissues. There is no acute fracture. There is developmental bony fusion at T11-T12 with increased kyphotic curvature centered at this interspace. IMPRESSION: 1. No pulmonary emboli. 2. Small layering pleural effusions with dependent compressive bibasilar atelectasis. 3. Mild intralobular septal thickening of the right greater than left lung bases may reflect a component of pulmonary edema. 4. Subtle biapical subpleural groundglass densities are suspicious for superimposed viral pneumonia. 5. Mild likely reactive subcarinal adenopathy. 6. Large hiatal hernia. ACT 112: Negative or not required by law. The above report was generated using voice recognition software. It may contain grammatical, syntax or spelling errors. Electronically signed by: Raman Cai M.D. 03/13/2021 8:10 AM Discharge Plan Visit Data Chief Complaint: Shortness of Breath/Dyspnea Stated Complaint: SHORT OF BREATH ED Provider: Bernadette Ch Discharge Problem: Hypoxia Patient Disposition: Admitted As Inpatient Discharge Instructions Interventions: ED Discharge Assessment Last Done: 03/13/21 11:52
[2021-03-13 06:24] LABS: Influenza A virus by PCR Negative (Neg); Influenza B virus by PCR Negative (Neg); RSV by PCR Negative (Neg); SARS CoV2 RNA(COVID-19) InHosp NEGATIVE (Negative)
[2021-03-13] MEDS ORDERED: levoFLOXacin/D5W 750 MG/150 ML BAG IV STA (07:00)
--- NOTE | 2021-03-13 08:11 | CT Scan Report ---
CT angio chest PE protocol CT DOSE: 464.66 mGy.cm HISTORY: 45 years-old Male with PE. Acute shortness of breath. COVID Positive. TECHNIQUE: Multiple CTA images of the chest were obtained after the intravenous administration of 120 ml Optiray. Coronal and sagittal MIPS were obtained from the axial data set and were submitted for review. All measurements were obtained according to NASCET criteria. A dose lowering technique was u tilized adhering to the principles of ALARA. COMPARISON: Chest radiograph of same day FINDINGS: CTA: The heart is normal in size. No pericardial effusion. No thoracic aortic aneurysm or dissection. Ther e is patency of the imaged great vessels. The pulmonary artery is opacified to level of the segmental branches and demonstrates no filling defects to suggest thromboembolic disease. CT CHEST: No thyroid nodule. Mild subcarinal adenopathy measures up to 11 mm. Small layering pleural effusions. Dependent bibasilar consolidation. Subtle patchy subpleural biapical groundglass densities. Mild bro nchial wall thickening. Intralobular septal thickening of the lung bases with mild right greater than left bibasilar ground glass densities. Central airways are patent. Large hiatal hernia with mid and distal esophageal wall thickening. Hepatosplenomegaly with hepatic s teatosis. Unremarkable soft tissues. There is no acute fracture. There is developmental bony fusion a t T11-T12 with increased kyphotic curvature centered at this interspace. IMPRESSION: 1. No pulmonary emboli. 2. Small layering pleural effusions with dependent compressive bibasilar atelectasis. 3. Mild intralobular septal thickening of the right greater than left lung bases may reflect a compon ent of pulmonary edema. 4. Subtle biapical subpleural groundglass densities are suspicious for superimposed viral pneumonia. 5. Mild likely reactive subcarinal adenopathy. 6. Large hiatal hernia. ACT 112: Negative or not required by law. The above report was generated using voice recognition software. It may contain grammatical, syntax o r spelling errors. Electronically signed by: Raman Cai M.D. 03/13/2021 8:10 AM
--- NOTE | 2021-03-13 08:36 | History & Physical Report ---
Date of Service March 13, 2021 Assessment & Plan (1) COPD exacerbation: Dexamethasone given in ER. Continue prednisone 40mg PO daily. Duonebelia QID. Incentive spirometry. Previous ER note he was on Advair diskus and he feels like he needs a maintenance inhaler again therefore will restart this or hospital formulary equivalent. (2) Pneumonia: Elevated WBC with shortness of breath. Possible aspiration with alcohol use although no evidence of this on CT. Levaquin 750mg daily. Aspiration precautions. (3) Alcohol intoxication: Positive ethyl alcohol level on admission. Monitor for alcohol withdrawal Lorazepam PRN per AW protocol Not interested in inpatient rehabilitation but will need to set up outpatient support. (4) Microcytic anemia: Stable Hgb since discharge from [facility] - suspected nutrition related rather than GI bleed given minor symptoms in relation to hemoglobin 2.6. Fecal occult blood pending (negative at [facility]). (5) Hypoxia: Secondary to PNA and COPD exacerbation. Possible element of pulmonary edema and ascites noted on CT in [facility] therefore with all his recent fluid resuscitation will start on furosemide 40mg PO. Aim O2 sats > 90% (6) Transaminitis: Secondary to alcohol use +/- hepatitis C Repeat with AM labs. (7) HCV antibody positive: Newly diagnosed at [facility]. Needs to establish with PCP for follow up of this to determine treatment. (8) Depression: Previously on sertraline and trazodone which the patient is keen to restart. I am unclear of the indication for his more recently prescribed Seroquel therefore will hold off restarting this. (9) Ascites: Start furosemide 40mg PO daily (10) Bilateral pleural effusion: Furosemide as above (11) DVT prophylaxis: SCDs. Chemical prophylaxis deferred given recent severe anemia and need to make sure this is stable prior to starting anticoagulation. Admission and Anticipated Discharge Date Admission Date: March 13, 2021 History of Present Illness Chief Complaint: Shortness of breath Primary Care Provider: Kevin Barger Benjamin Alvarez is a 45-year-old male who presents to the ER with shortness of breath. He was recently in [facility] from March 10-2020 with muscle cramps, dizziness, abdominal pain and seizure-like activity (although denies this to me). He was diagnosed with acute iron deficiency anemia with hemoglobin 2.6. Fecal occult blood was negative and suspect due to malnutrition with chronic alcohol use. He had a total of 6 packed RBCs transfused and Venofer. He drinks approximately 3 beers/night. He denies any alcohol withdrawal symptoms recently and reports he has already cut back alcohol from earlier in the pandemic. After being discharged he went home and drank 2 beers, smoked and fell asleep. On waking up he was very short of breath and coughing therefore decided to come to the ER here as he felt he has been taken care of here well in the past. He reports running out of all his medications in December. Per external medication list he was last prescribed Seroquel in September for 30 day supply. He denies any chest pain, orthopnea or PND. In the ER he was wheezing which improved with duonebs, CTA showed no pulmonary emboli but was concerning for findings suggestive of pulmonary edema vs. viral pneumonia. Procalcitonin negative. WBC increased to 18.58. He was started on Levaquin for pneumonia. He was hypoxic in the mid 80s on room air and therefore referred to medicine for admission and ongoing management of hypoxia. Allergies Allergy/AdvReac Type Severity Reaction Status Date / Time Penicillins Allergy Unknown Unknown Verified 03/13/21 08:21 Home Medications Medication Instructions Recorded Confirmed Type No Known Home Medications 03/13/21 03/13/21 History Past Med/Surg History Medical History (Updated 03/13/21 @ 22:18 by Devin Rehman MD) Alcohol abuse Anxiety Depression Drug abuse Microcytic anemia Family History Other No significant family history Social History Smoking Status: Current every day smoker Tobacco Type: Cigarettes and E-cigarettes / Vaping Cigarettes Per Day: 12; Second Hand Exposure: Yes; Do You Dip or Chew Tobacco: No; Tobacco Cessation Education Requested by Patient: No Hx Alcohol Use: Yes Alcohol type: beer Hx Substance Use: Yes Last Used Substance: Hours (ago) Last Used Substance Other:: 03/12/2021 "helps appitite" Preferred Language: Persian Communication Ability: Effective Special Education Director Required: No Beliefs That Will Affect Care: None Current Living Situation: Alone Current Living Situation Comment: states he lives with a friend at this time. Other Information That Helps Us Care for You: No Feels Safe at Home: Yes Safety Concerns: Feels Safe At This Time Assistive Devices: Oxygen - Continuous Review of Systems Review of Systems: All systems reviewed & are unremarkable except as noted in HPI & below Physical Exam Constitutional: well developed; + not well nourished and no acute distress Eyes: PERRL, conjunctivae normal, anicteric sclerae Neck: trachea midline Respiratory: normal respiratory effort; no respiratory distress, does not use accessory muscles and + not able to speak in complete sentence Auscultation: + diminished lung sounds (bibasal) and + crackles; no rales and no wheezes Cardiovascular: Rate/Rhythm: regular rhythm and + tachycardic Heart Sounds: no murmur Vessels: no JVD Extremities: normal capillary refill and + pedal edema (trace ankles b/l equal) Gastrointestinal (Abdomen): Inspection/Auscultation: abdomen normal to inspection and normal bowel sounds Percussion/Palpation: abdomen soft; abdomen nontender, no guarding, abdomen not rigid and no hepatomegaly Musculoskeletal: no cyanosis or clubbing, extremities motor strength 5/5 Skin: no rashes, warm and dry Neurologic: moves all extremities and awake; no focal motor deficits and not confused Speech / Cognition: normal speech Motor/Sensory: no tremor and no pronator drift Psychiatric: A+Ox3, euthymic affect Results & Data Results & Data ([facility]) Vital Signs (Past 12 Hours) Vital Signs Temp Pulse Pulse Resp BP Pulse Ox 03/13/21 08:18 153/113 H 96 03/13/21 08:00 108 H 19 03/13/21 07:30 90 20 100 03/13/21 07:00 95 H 18 99 03/13/21 06:06 123 H 24 130/91 96 03/13/21 05:00 96 H 25 H 99 03/13/21 04:30 107 H 18 97 03/13/21 04:23 115 H 20 98 03/13/21 02:41 128 H 21 145/76 H 96 03/13/21 02:30 36.9 C 129 H 30 H 146/76 H 86 L Diagnostic Findings XR chest 1V portable IMPRESSION: 1. Mild cardiomegaly 2. Moderate hiatal hernia 3. No acute findings. CT angio chest PE protocol IMPRESSION: 1. No pulmonary emboli. 2. Small layering pleural effusions with dependent compressive bibasilar atelectasis. 3. Mild intralobular septal thickening of the right greater than left lung bases may reflect a component of pulmonary edema. 4. Subtle biapical subpleural groundglass densities are suspicious for superimposed viral pneumonia. 5. Mild likely reactive subcarinal adenopathy. 6. Large hiatal hernia. Medications Administered ER Medications Given: Duoneb 3ml Dexamethasone 10mg IV Levaquin 750mg IV ECG Indication: SOB/dyspnea and tachycardia Rate (beats per minute): 123 Rhythm: sinus tachycardia Findings: + nonspecific-ST abn Comparison ECG Date: from (Jun 26, 2019) Change: no significant change Code Status & VTE Plan Code Status Full VTE Prophylaxis Plan VTE Prophylaxis will be ordered: Yes PG Care Time/CCT Total # of Minutes Spent Total Time Spent with Patient: Total time spent is greater than 50% in coordination of care (as documented) at patient's floor/unit and/or counseling patient: Coding Level of Care Code 17208 Initial Inpt Care Lvl 3 Diagnoses COPD exacerbation J44.1 Pneumonia J18.9 Pneumonia type: due to unspecified organism Laterality: bilateral Lung location: unspecified part of lung Alcohol intoxication F10.920 Complication of substance-induced condition: uncomplicated Microcytic anemia D50.9 Hypoxia R09.02 Transaminitis R74.0 HCV antibody positive R76.8 Depression F32.9 Ascites R18.8 Bilateral pleural effusion J90 DVT prophylaxis Z29.9 (1) Alcohol intoxication Complication of substance-induced condition: uncomplicated Qualified Code(s): F10.920 - Alcohol use, unspecified with intoxication, uncomplicated (2) Pneumonia Pneumonia type: due to unspecified organism Laterality: bilateral Lung location: unspecified part of lung Qualified Code(s): J18.9 - Pneumonia, unspecified organism
--- NOTE | 2021-03-13 08:39 | XRay Report ---
XR chest 1V portable CLINICAL HISTORY: Dyspnea COMPARISON STUDY: 06/27/2019 FINDINGS: The heart is enlarged. There is a retrocardiac opacity consistent with a hiatal hernia. The re is no failure. There is no focal pulmonary consolidation. There are no significant pleural effusio ns.[ IMPRESSION: 1. Mild cardiomegaly 2. Moderate hiatal hernia 3. No acute findings. ACT 112: Negative or not required by law. Electronically signed by: Devyn Clark M.D. 03/13/2021 8:37 AM
[2021-03-13 08:59] LABS: Amphetamines+Metham, Urine Neg (Neg); Barbiturates, Urine Neg (Neg); Benzodiazepine, Urine Neg (Neg); Cocaine, Urine Neg (Neg); MDMA (Ecstacy), Urine Neg (Neg); Methadone, Urine Neg (Neg); Opiate, Urine Neg (Neg); Phencyclidine, Urine Neg (Neg)
[2021-03-13 09:51] LABS: Folate (Folic Acid) 13.9 ng/ml (>5.38)
[2021-03-13] MEDS ORDERED: POLYETHYLENE (MIRALAX) 17 GM PACK PO PRN (12:43)
[2021-03-13] MEDS ORDERED: LORazepam 1 MG/2 ML VIAL IV PRN (12:43)
--- NOTE | 2021-03-13 13:08 | Electrocardiogram Report ---
Test Reason : Blood Pressure : / mmHG Vent. Rate : 123 BPM Atrial Rate : 123 BPM P-R Int : 160 ms QRS Dur : 094 ms QT Int : 302 ms P-R-T Axes : 079 088 057 degrees QTc Int : 432 ms Poor data quality, interpretation may be adversely affected Sinus tachycardia Incomplete right bundle branch block Nonspecific ST abnormality Abnormal ECG When compared with ECG of 26-JUN-2019 19:51, No significant change was found Confirmed by Eamon Dickens ([id number]) on 03/13/2021 1:07:28 PM Referred By: REFERRED SELF Confirmed By:Ankit Dickens
[2021-03-13] MEDS ORDERED: methylPREDNISolone 40 MG in SYRINGE 0 ML IV SCH (13:15)
[2021-03-13] MEDS: ALBUT/IPRATROP 3MG/0.5MG NEB 3 ML VIAL NEB SCH ×3 (14:05→19:34)
[2021-03-13] MEDS: traZODone HCL 100 MG TAB PO SCH (21:12)
[2021-03-14 07:06] LABS: Nucleated RBC # (auto) 0.15 K/uL (0-0); Nucleated RBC % (auto) 1.2 %
[2021-03-14 07:14] LABS: Mean Corpuscular Hemoglobin 23.4 pg (25-34); Mean Corpuscular Volume 77.9 fL (80-100); RDW Coefficient of Variation 28.5 % (11.5-14.5); RDW Standard Deviation 75.5 fL (36.4-46.3); Red Blood Count 3.85 M/uL (4.7-6.1); White Blood Count 13.03 K/uL (4.8-10.8)
[2021-03-14 07:27] LABS: Anisocytosis Present; Basophils # (auto) 0.01 K/uL (0-0.2); Basophils % (auto) 0.1 %; Hypochromasia Present; Immature Granulocytes # (auto) 0.05 K/uL (0.00-0.02); Immature Granulocytes % (auto) 0.4 %; Lymphocytes # (auto) 1.24 K/uL (1.2-3.4); Lymphocytes % (auto) 9.5 %; Microcytosis Present; Monocytes # (auto) 0.33 K/uL (0.11-0.59); Monocytes % (auto) 2.5 %; Neutrophils % (auto) 87.5 %; Platelet Count 137 K/uL (130-400); Platelet Estimate Normal (Normal); Polychromasia 2+; Target Cells 1+
[2021-03-14 07:43] LABS: Albumin Globulin Ratio 0.8 (0.9-2); Albumin Level 2.6 gm/dl (3.4-5.0); BUN Creatinine Ratio 19.3 (10-20); Bilirubin,Total 0.8 mg/dl (0.2-1); Calcium 9.1 mg/dl (8.5-10.1); Creatinine Clr Calc Pharmacy 153.4 ml/min; Est GFR (African American) 132.7; Est GFR (Non-African American) 114.5; Globulin 3.4 gm/dl (2.5-4.0); Potassium 3.8 mmol/L (3.5-5.1)
[2021-03-14] MEDS: ALBUT/IPRATROP 3MG/0.5MG NEB 3 ML VIAL NEB SCH ×3 (07:48→16:16)
[2021-03-14] MEDS: FUROSEMIDE 40 MG TAB PO SCH (08:34)
[2021-03-14] MEDS: MAGNESIUM OXIDE 400 MG TAB PO SCH ×2 (08:35→20:33)
[2021-03-14] MEDS: THIAMINE HCL 100 MG TAB PO SCH (08:36)
[2021-03-14] MEDS: FEXOFENADINE HCL 180 MG TAB PO SCH (08:36)
[2021-03-14] MEDS: levoFLOXacin 750 MG TAB PO SCH (08:36)
[2021-03-14] MEDS: MULTIVITAMIN TAB PO SCH (08:36)
[2021-03-14] MEDS: predniSONE 20 MG TAB PO SCH (08:36)
[2021-03-14] MEDS: SERTRALINE HCL 50 MG TABLET PO SCH (08:36)
[2021-03-14] MEDS: POTASSIUM CHLORIDE CRTAB 20 MEQ TABCR PO SCH (08:37)
[2021-03-14] MEDS: NICOTINE 14 MG/24 HR PATCH TD SCH (08:37)
[2021-03-14] MEDS: FLUTICASONE/VILANTEROL 100/25MCG 14 PUFFS/INHALER INH SCH (08:38)
[2021-03-14] MEDS ORDERED: levoFLOXacin/D5W 750 MG/150 ML BAG IV SCH (09:00)
[2021-03-14] MEDS: ACETAMINOPHEN 325 MG TAB PO PRN (09:05)
[2021-03-14] MEDS ORDERED: IBUPROFEN 600 MG TAB PO STA (14:32)
--- NOTE | 2021-03-14 14:37 | Hospitalist Progress Note ---
Date of Service March 14, 2021 Assessment & Plan (1) Hypoxia: Secondary to PNA and COPD exacerbation, as well as likely volume overload and pulmonary edema from 6 units of PRBCs recently transfused. Echocardiogram ordered and with grade 1 diastolic dysfunction but preserved EF Now much improved and can be weaned off oxygen after receiving p.o. Lasix -Continue furosemide 40mg PO once daily. Aim O2 sats > 90% -Continue treatment with Levaquin -Can make scheduled nebulizers down to as needed -Continue prednisone burst as below for COPD exacerbation (2) COPD exacerbation: Dexamethasone given in ER. Continue prednisone 40mg PO daily. Wheezing is now resolved He reports a long history of asthma since childhood but also a heavy smoker Duonebs QID can be made as needed. Continue incentive spirometry. Previous ER note he was on Advair diskus and he feels like he needs a maintenance inhaler again therefore will restart this or hospital formulary equivalent. -Continue prednisone burst x5 days (3) Pneumonia: Elevated WBC with shortness of breath. Possible aspiration with alcohol use although no evidence of this on CT. Leukocytosis is improving today down to 13 Covid-19 is negative Blood cultures no growth to date Continue Levaquin 750mg daily x5-day course. Aspiration precautions. (4) Alcohol intoxication: Positive ethyl alcohol level on admission. Monitor for alcohol withdrawal-he reports he has been slowly weaning himself down on the amount of beer he drinks over the last month There is also reports a possible history of seizures from alcohol withdrawal as per patient Lorazepam PRN per [facility] protocol Not interested in inpatient rehabilitation but will need to set up outpatient support. -Continue multivitamin, thiamine, and will add on folic acid -f/u B1 level pending (5) Microcytic anemia: -Supposedly had a hemoglobin of 2.[address] [facility] and received 6 units of PRBCs He denies any melena, hematemesis or hematochezia. Review of the chart shows that he had a microcytic anemia with hemoglobin of 8.6 in our system 3 years ago. He has never had a colonoscopy or EGD but states that he would be willing to get one. Hemoglobin here is stable at 9.0, remains microcytic He also reports he received IV iron transfusions there Fecal occult blood pending (negative at [place]). -he will need follow-up with GI as an outpatient after acute pulmonary issues are resolved (6) Transaminitis: Secondary to alcohol use +/- hepatitis C Improving today, AST is back to normal and ALT is much lower, alkaline phosphatase is lower, total bilirubin is normal Follow LFTs in the morning (7) HCV antibody positive: Newly diagnosed at [facility]. Needs to establish with PCP for follow up of this to determine treatment. (8) Depression: Previously on sertraline and trazodone which the patient is keen to restart. I am unclear of the indication for his more recently prescribed Seroquel therefore will hold off restarting this. -Restarted sertraline 50 mg once daily -Restarted trazodone 100 mg at bedtime (9) Ascites: Could be secondary to alcoholic hepatitis? -Start furosemide 40mg PO daily (10) Bilateral pleural effusion: Furosemide as above -Check BMP in the morning (11) Headache: Mild to moderate headache, could be secondary to alcohol withdrawal -Tylenol as needed -Add one-time dose of ibuprofen 60 mg p.o. once daily (12) Current smoker: He has been working on cutting back and is down to half pack per day as an outpatient Continue nicotine patch care (13) Constipation: Start docusate 100 mg p.o. twice daily (14) DVT prophylaxis: SCDs. Chemical prophylaxis deferred given recent severe anemia and need to make sure this is stable prior to starting anticoagulation. Admission and Anticipated Discharge Date Admission Date: March 13, 2021 Subjective Pt has a mild headache and worries about taking tylenol because of his liver. He otherwise feels a little anxious. Says he has been slowly weaning himself down off beer over the last month as he previously learned in rehab not to quit cold turkey. Denies any blood in the stool, no hematemesis. He has not moved his bowels in a few days and would like something for this. He is agreeable to outpt referral f or GI workup for EGD/colonoscopy. Denies SOB or CP. Tele with NSR, rates 80s-130s. Review of Systems Review of Systems: All systems reviewed & are unremarkable except as noted in HPI & below Physical Exam Constitutional: WD/WN, vitals as above Eyes: + anicteric sclerae ENMT: external ear and nose normal, oropharynx normal Neck: trachea midline, no thyromegaly Respiratory: normal respiratory effort, lungs clear to auscultation Cardiovascular: RRR, no murmur, no edema Chest (Breasts): Chest: normal inspection of chest Gastrointestinal (Abdomen): normal bowel sounds, soft, nontender, no hepatosplenomegaly Musculoskeletal: Extremities: extremities normal to inspection; no cyanosis and no clubbing Skin: no rashes, warm and dry Neurologic: moves all extremities and awake; no focal motor deficits Psychiatric: A+Ox3, euthymic affect Lymphatic: no lymphedema Results & Data Results & Data ([facility]) Vital Signs (Past 12 Hours) Vital Signs Temp Pulse Pulse Resp BP Pulse Ox 03/14/21 11:26 76 16 98 03/14/21 11:03 36.6 C 99 H 20 123/68 96 03/14/21 08:00 90 03/14/21 07:49 78 16 97 03/14/21 07:38 36.8 C 77 20 119/71 95 03/14/21 03:00 36.9 C 99 H 18 116/70 94 Laboratory Results 03/14/21 03/14/21 03/14/21 Range/Units 06:26 06:26 06:26 WBC 13.03 H (4.8-10.8) K/uL RBC 3.85 L (4.7-6.1) M/uL Hgb 9.0 L (14.0-18.0) g/dL Hct 30.0 L (42-52) % MCV 77.9 L (80-100) fL MCH 23.4 L (25-34) pg MCHC 30.0 L (32-36) g/dL RDW Std Deviation 75.5 H (36.4-46.3) fL RDW Coeff of [place] 28.5 H (11.5-14.5) % Plt Count 137 (130-400) K/uL Immature Gran % (Auto) 0.4 % Neut % (Auto) 87.5 % Lymph % (Auto) 9.5 % [place] % (Auto) 2.5 % Eos % (Auto) 0.0 % Baso % (Auto) 0.1 % Neut # (Auto) 11.40 H (1.4-6.5) K/uL Lymph # (Auto) 1.24 (1.2-3.4) K/uL [place] # (Auto) 0.33 (0.11-0.59) K/uL Eos # (Auto) 0.00 (0-0.5) K/uL Baso # (Auto) 0.01 (0-0.2) K/uL Immature Gran # (Auto) 0.05 H (0.00-0.02) K/uL Absolute Nucleated RBC 0.15 H (0-0) K/uL Nucleated RBC % (auto) 1.2 % Platelet Estimate Normal (Normal) Polychromasia 2+ Hypochromasia Present Anisocytosis Present Microcytosis Present Target Cells 1+ Sodium 140 (136-145) mmol/L Potassium 3.8 (3.5-5.1) mmol/L Chloride 107 (98-107) mmol/L Carbon Dioxide 27 (21-32) mmol/L Anion Gap 6.0 (3-11) BUN 13 D (7-18) mg/dl Creatinine 0.68 (0.6-1.4) mg/dl Est Cr Clr Drug Dosing 153.4 ml/min Est GFR ( Amer) 132.7 Est GFR (Non-Af Amer) 114.5 BUN/Creatinine Ratio 19.3 (10-20) Glucose 138 H (70-99) mg/dl Calcium 9.1 D (8.5-10.1) mg/dl Total Bilirubin 0.8 (0.2-1) mg/dl AST 21 (15-37) U/L ALT 145 H (12-78) U/L Alkaline Phosphatase 120 H (45-117) U/L Troponin I < 0.015 (0-0.045) ng/ml Total Protein 6.0 L (6.4-8.2) gm/dl Albumin 2.6 L (3.4-5.0) gm/dl Globulin 3.4 (2.5-4.0) gm/dl Albumin/Globulin Ratio 0.8 L (0.9-2) PG Care Time/CCT Total # of Minutes Spent Total Time Spent with Patient: Total time spent is greater than 50% in coordination of care (as documented) at patient's floor/unit and/or counseling patient: Coding Level of Care Code 45728 Subseq Hosp Care Lvl 3 Diagnoses Hypoxia R09.02 COPD exacerbation J44.1 Pneumonia J18.9 Laterality: bilateral Lung location: unspecified part of lung Pneumonia type: due to unspecified organism Alcohol intoxication F10.920 Complication of substance-induced condition: uncomplicated Microcytic anemia D50.9 Transaminitis R74.0 HCV antibody positive R76.8 Depression F32.9 Ascites R18.8 Bilateral pleural effusion J90 Headache R51.9 Current smoker F17.200 Constipation K59.00 DVT prophylaxis Z29.9 (1) Alcohol intoxication Complication of substance-induced condition: uncomplicated Qualified Code(s): F10.920 - Alcohol use, unspecified with intoxication, uncomplicated (2) Pneumonia Laterality: bilateral Lung location: unspecified part of lung Pneumonia type: due to unspecified organism Qualified Code(s): J18.9 - Pneumonia, unspecified organism
[2021-03-14] MEDS: DOCUSATE SODIUM 100 MG CAP PO SCH ×2 (15:04→20:32)
--- NOTE | 2021-03-14 16:21 | XCELERA ---
[id number]
[2021-03-14] MEDS ORDERED: ALBUT/IPRATROP 3MG/0.5MG NEB 3 ML VIAL NEB STA (16:33)
[2021-03-14] MEDS ORDERED: ALBUT/IPRATROP 3MG/0.5MG NEB 3 ML VIAL NEB PRN (16:34)
[2021-03-14] MEDS: FOLIC ACID 1 MG TAB PO SCH (20:32)
[2021-03-14] MEDS: traZODone HCL 100 MG TAB PO SCH (20:33)
[2021-03-15 06:44] LABS: Hematocrit (blood only) 29.7 % (42-52); Hemoglobin 8.7 g/dL (14.0-18.0); Mean Corpuscular Hemoglobin 23.1 pg (25-34); Mean Corpuscular Hgb Conc 29.3 g/dL (32-36); Mean Corpuscular Volume 78.8 fL (80-100); Nucleated RBC # (auto) 0.07 K/uL (0-0); Nucleated RBC % (auto) 0.6 %; Platelet Count 119 K/uL (130-400); RDW Coefficient of Variation 29.7 % (11.5-14.5); RDW Standard Deviation 80.9 fL (36.4-46.3); Red Blood Count 3.77 M/uL (4.7-6.1); White Blood Count 11.94 K/uL (4.8-10.8)
[2021-03-15 06:45] LABS: Anisocytosis Present; Giant Platelets 1+; Immature Granulocytes # (auto) 0.04 K/uL (0.00-0.02); Immature Granulocytes % (auto) 0.3 %; Lymphocytes # (auto) 1.27 K/uL (1.2-3.4); Lymphocytes % (auto) 10.6 %; Monocytes # (auto) 0.76 K/uL (0.11-0.59); Monocytes % (auto) 6.4 %; Neutrophils # (auto) 9.87 K/uL (1.4-6.5); Neutrophils % (auto) 82.7 %; Platelet Estimate Normal (Normal); Polychromasia 1+; Tear Drop Cells 1+
[2021-03-15 06:49] LABS: Albumin Level 2.9 gm/dl (3.4-5.0); BUN Creatinine Ratio 24.1 (10-20); Bilirubin Direct 0.3 mg/dl (0-0.2); Calcium 8.9 mg/dl (8.5-10.1); Est GFR (African American) 131.2; Est GFR (Non-African American) 113.2; Magnesium 2.1 mg/dl (1.8-2.4); Potassium 4.2 mmol/L (3.5-5.1)
[2021-03-15 06:52] LABS: Bilirubin,Total 0.8 mg/dl (0.2-1); Total Protein 6.2 gm/dl (6.4-8.2)
[2021-03-15] MEDS: ACETAMINOPHEN 325 MG TAB PO PRN (09:01)
[2021-03-15] MEDS: MAGNESIUM OXIDE 400 MG TAB PO SCH ×2 (09:02→20:29)
[2021-03-15] MEDS: FOLIC ACID 1 MG TAB PO SCH (09:02)
[2021-03-15] MEDS: DOCUSATE SODIUM 100 MG CAP PO SCH ×2 (09:02→20:29)
[2021-03-15] MEDS: NICOTINE 14 MG/24 HR PATCH TD SCH (09:03)
[2021-03-15] MEDS: MULTIVITAMIN TAB PO SCH (09:03)
[2021-03-15] MEDS: FEXOFENADINE HCL 180 MG TAB PO SCH (09:04)
[2021-03-15] MEDS: levoFLOXacin 750 MG TAB PO SCH (09:04)
[2021-03-15] MEDS: predniSONE 20 MG TAB PO SCH (09:04)
[2021-03-15] MEDS: THIAMINE HCL 100 MG TAB PO SCH (09:04)
[2021-03-15] MEDS: FLUTICASONE/VILANTEROL 100/25MCG 14 PUFFS/INHALER INH SCH (09:05)
[2021-03-15] MEDS: POTASSIUM CHLORIDE CRTAB 20 MEQ TABCR PO SCH (09:05)
[2021-03-15] MEDS: FUROSEMIDE 40 MG TAB PO SCH (09:05)
[2021-03-15] MEDS: SERTRALINE HCL 50 MG TABLET PO SCH (09:05)
--- NOTE | 2021-03-15 12:01 | Hospitalist Progress Note ---
Date of Service March 15, 2021 Assessment & Plan (1) Hypoxia: Secondary to PNA and COPD exacerbation, as well as likely volume overload and pulmonary edema from 6 units of PRBCs recently transfused. Echocardiogram ordered and with grade 1 diastolic dysfunction but preserved EF Now much improved and has been weaned off oxygen after receiving p.o. Lasix for several days -Continue furosemide 40mg PO once daily for 1 more day and then discontinue. -Continue treatment with Levaquin as below for suspected pneumonia -Continue nebulizers as needed -Continue prednisone burst as below for COPD exacerbation (2) COPD exacerbation: Dexamethasone given in ER. Continue prednisone 40mg PO daily x5 days. Wheezing is now resolved and weaned off oxygen He reports a long history of asthma since childhood but also a heavy smoker Duonebs QID as needed Continue incentive spirometry. Previous ER note he was on Advair diskus and he feels like he needs a mainte nance inhaler again therefore will restart this or hospital formulary equivalent. (3) Pneumonia: Elevated WBC with shortness of breath. Possible aspiration with alcohol use although no evidence of this on CT. Leukocytosis is 18 on admission and is now down to 11.9 Covid-19 is negative Blood cultures no growth to date Continue Levaquin 750mg daily x5-day course. Aspiration precautions. (4) Alcohol intoxication: Positive ethyl alcohol level on admission. Monitor for alcohol withdrawal-he reports he has been slowly weaning himself down on the amount of beer he drinks over the last month There is also reports a possible history of seizures from alcohol withdrawal as per patient Lorazepam PRN per AWSS protocol-he is not required any so far Not interested in inpatient or outpatient rehabilitation but plans on attending AA meetings -Continue multivitamin, thiamine, and folic acid-he requested prescription for these upon discharge so he does not buy them off the shelf -f/u B1 level pending Doing well so far Continue telemetry monitoring (5) Microcytic anemia: -Supposedly had a hemoglobin of 2.6 at [facility] and received 6 units of PRBCs He denies any melena, hematemesis or hematochezia. Review of the chart shows that he had a microcytic anemia with hemoglobin of 8.6 in our system 3 years ago. He has never had a colonoscopy or EGD but states that he would be willing to get one as an outpatient. Hemoglobin here is slightly decreased today at 8.7, remains microcytic He also reports he received IV iron transfusions there Fecal occult blood is negative here and apparently was negative at [facility] Most likely this could be secondary to nutritional deficiencies, but certainly does warrant outpatient endoscopies -he will need follow-up with GI as an outpatient after acute pulmonary issues are resolved (6) Transaminitis: Secondary to alcohol use +/- hepatitis C Continues to be improving today, AST is back to normal and ALT is much lower, alkaline phosphatase now normal, total bilirubin is normal Follow LFTs in the morning (7) HCV antibody positive: Newly diagnosed at [facility]. Needs to establish with PCP for follow up of this to determine treatment. (8) Depression: Previously on sertraline and trazodone which the patient is keen to restart. I am unclear of the indication for his more recently prescribed Seroquel therefore will hold off restarting this. -Restarted sertraline 50 mg once daily -Restarted trazodone 100 mg at bedtime (9) Ascites: Could be secondary to alcoholic hepatitis? -Started furosemide 40mg PO daily Follow-up with GI as an outpatient (10) Bilateral pleural effusion: As above, likely secondary to volume overload/pulmonary edema from massive blood transfusion recently Furosemide as above given and now weaned off oxygen Follow BMP (11) Headache: Mild to moderate headache, could be secondary to alcohol withdrawal-now resolved -Tylenol as needed (12) Current smoker: He has been working on cutting back and is down to half pack per day as an outpatient Continue nicotine patch care Counseled on cessation (13) Constipation: Now resolved after starting docusate 100 mg p.o. twice daily (14) DVT prophylaxis: SCDs. Chemical prophylaxis deferred given recent severe anemia and need to make sure this is stable prior to starting anticoagulation. Disposition-continued stay, but possible discharge home tomorrow Will need outpatient GI EGD/colonoscopy Admission and Anticipated Discharge Date Admission Date: March 13, 2021 Subjective Patient feels he had a good night at rest. He has no complaints. Denies anxiety or tremors, denies hallucinations. He reports he does not want to go to alcohol rehab, but has attended AA meetings in the past and feels he is able to do that on his own and he is committed to quitting drinking when he leaves the hospital. Denies chest pains or shortness of breath, no cough. He is weaned off oxygen. He had a bowel movement that was Hemoccult negative in the last 24 hours. Telemetry with normal sinus rhythm and sinus tachycardia with rates in the 90s to low 100s Review of Systems Review of Systems: All systems reviewed & are unremarkable except as noted in HPI & below Physical Exam Constitutional: WD/WN, vitals as above Eyes: + anicteric sclerae Neck: trachea midline, no thyromegaly Respiratory: normal respiratory effort, lungs clear to auscultation Cardiovascular: RRR, no murmur, no edema Chest (Breasts): Chest: normal inspection of chest Gastrointestinal (Abdomen): normal bowel sounds, soft, nontender, no hepatosplenomegaly Musculoskeletal: Extremities: extremities normal to inspection; no cyanosis and no clubbing Skin: no rashes, warm and dry Neurologic: moves all extremities and awake; no focal motor deficits Psychiatric: A+Ox3, euthymic affect Lymphatic: no lymphedema Results & Data Results & Data ([facility]) Vital Signs (Past 12 Hours) Vital Signs Temp Pulse Pulse Resp BP Pulse Ox 03/15/21 11:12 36.6 C 92 H 20 138/84 96 03/15/21 08:04 36.5 C 73 20 133/66 96 03/15/21 08:00 73 03/15/21 03:35 37.1 C 75 18 159/79 H 97 03/15/21 00:02 85 Laboratory Results 03/15/21 05:42 03/15/21 05:42 PG Care Time/CCT Total # of Minutes Spent Total Time Spent with Patient: Total time spent is greater than 50% in coordination of care (as documented) at patient's floor/unit and/or counseling patient: Coding Level of Care Code 18665 Subseq Hosp Care Lvl 3 Diagnoses Hypoxia R09.02 COPD exacerbation J44.1 Pneumonia J18.9 Pneumonia type: due to unspecified organism Laterality: bilateral Lung location: unspecified part of lung Alcohol intoxication F10.920 Complication of substance-induced condition: uncomplicated Microcytic anemia D50.9 Transaminitis R74.0 HCV antibody positive R76.8 Depression F32.9 Ascites R18.8 Bilateral pleural effusion J90 Headache R51.9 Current smoker F17.200 Constipation K59.00 DVT prophylaxis Z29.9 (1) Pneumonia Pneumonia type: due to unspecified organism Laterality: bilateral Lung location: unspecified part of lung Qualified Code(s): J18.9 - Pneumonia, unspecified organism (2) Alcohol intoxication Complication of substance-induced condition: uncomplicated Qualified Code(s): F10.920 - Alcohol use, unspecified with intoxication, uncomplicated
[2021-03-15] MEDS: traZODone HCL 100 MG TAB PO SCH (20:29)
[2021-03-16] MEDS: FEXOFENADINE HCL 180 MG TAB PO SCH (08:03)
[2021-03-16] MEDS: FLUTICASONE/VILANTEROL 100/25MCG 14 PUFFS/INHALER INH SCH (08:03)
[2021-03-16] MEDS: SERTRALINE HCL 50 MG TABLET PO SCH (08:04)
[2021-03-16] MEDS: FOLIC ACID 1 MG TAB PO SCH (08:04)
[2021-03-16] MEDS: levoFLOXacin 750 MG TAB PO SCH (08:04)
[2021-03-16] MEDS: DOCUSATE SODIUM 100 MG CAP PO SCH (08:04)
[2021-03-16] MEDS: predniSONE 20 MG TAB PO SCH (08:05)
[2021-03-16] MEDS: POTASSIUM CHLORIDE CRTAB 20 MEQ TABCR PO SCH (08:05)
[2021-03-16] MEDS: MULTIVITAMIN TAB PO SCH (08:05)
[2021-03-16] MEDS: FUROSEMIDE 40 MG TAB PO SCH (08:05)
[2021-03-16 08:06] LABS: INR 1.2 (0.9-1.1); Prothrombin Time 11.9 Seconds (9.0-12.0)
[2021-03-16] MEDS: THIAMINE HCL 100 MG TAB PO SCH (08:06)
[2021-03-16] MEDS: NICOTINE 14 MG/24 HR PATCH TD SCH (08:06)
[2021-03-16] MEDS: MAGNESIUM OXIDE 400 MG TAB PO SCH (08:06)
[2021-03-16 08:20] LABS: Hematocrit (blood only) 31.4 % (42-52); Mean Corpuscular Hemoglobin 23.1 pg (25-34); Mean Corpuscular Hgb Conc 28.7 g/dL (32-36); Mean Corpuscular Volume 80.5 fL (80-100); Platelet Count 124 K/uL (130-400); RDW Coefficient of Variation 29.9 % (11.5-14.5); RDW Standard Deviation 85.1 fL (36.4-46.3); White Blood Count 9.99 K/uL (4.8-10.8)
[2021-03-16 08:21] LABS: Anisocytosis Present; Basophils # (auto) 0.01 K/uL (0-0.2); Basophils % (auto) 0.1 %; Eosinophils # (auto) 0.05 K/uL (0-0.5); Eosinophils % (auto) 0.5 %; Hypochromasia Present; Immature Granulocytes # (auto) 0.03 K/uL (0.00-0.02); Immature Granulocytes % (auto) 0.3 %; Monocytes # (auto) 0.65 K/uL (0.11-0.59); Monocytes % (auto) 6.5 %; Neutrophils # (auto) 7.65 K/uL (1.4-6.5); Neutrophils % (auto) 76.6 %; Platelet Estimate Decreased (Normal); Schistocytes 1+; Target Cells 1+; Tear Drop Cells 1+
[2021-03-16 08:27] LABS: Albumin Level 2.7 gm/dl (3.4-5.0); BUN Creatinine Ratio 22.1 (10-20); Calcium 8.7 mg/dl (8.5-10.1); Creatinine Clr Calc Pharmacy 146.9 ml/min; Est GFR (African American) 130.4; Est GFR (Non-African American) 112.5; Magnesium 2.1 mg/dl (1.8-2.4)
[2021-03-16 08:38] LABS: Albumin Globulin Ratio 0.8 (0.9-2); Bilirubin,Total 0.9 mg/dl (0.2-1); Globulin 3.2 gm/dl (2.5-4.0); Thyroid Stimulating Hormone 8.56 uIu/ml (0.300-4.500); Total Protein 5.9 gm/dl (6.4-8.2)
[2021-03-16 08:50] LABS: T4 Free Thyroxine 0.77 ng/dl (0.8-1.6)
--- NOTE | 2021-03-16 11:30 | Discharge Summary ---
Date of Service March 16, 2021 Admission HPI Per Admitting Provider Benjamin Alvarez is a 45-year-old male who presents to the ER with shortness of breath. He was recently in [facility] from March 10-2020 with muscle cramps, dizziness, abdominal pain and seizure-like activity (although denies this to me). He was diagnosed with acute iron deficiency anemia with hemoglobin 2.6. Fecal occult blood was negative and suspect due to malnutrition with chronic alcohol use. He had a total of 6 packed RBCs transfused and Venofer. He drinks approximately 3 beers/night. He denies any alcohol withdrawal symptoms recently and reports he has already cut back alcohol from earlier in the pandemic. After being discharged he went home and drank 2 beers, smoked and fell asleep. On waking up he was very short of breath and coughing therefore decided to come to the ER here as he felt he has been taken care of here well in the past. He reports running out of all his medications in December. Per external medication list he was last prescribed Seroquel in September for 30 day supply. He denies any chest pain, orthopnea or PND. In the ER he was wheezing which improved with duonebs, CTA showed no pulmonary emboli but was concerning for findings suggestive of pulmonary edema vs. viral pneumonia. Procalcitonin negative. WBC increased to 18.58. He was started on Levaquin for pneumonia. He was hypoxic in the mid 80s on room air and therefore referred to medicine for admission and ongoing management of hypoxia. Principal Diagnosis COPD exacerbation, pneumonia, volume overload and pulmonary edema secondary to massive recent blood transfusion, acute respiratory failure with hypoxia Discharge Exam Constitutional WD/WN, vitals as above Eyes + anicteric sclerae ENMT Mouth: + edentulous and + poor dentition Neck trachea midline, no thyromegaly Respiratory normal respiratory effort, lungs clear to auscultation Cardiovascular RRR, no murmur, no edema Chest (Breasts) Chest: normal inspection of chest Gastrointestinal (Abdomen) normal bowel sounds, soft, nontender, no hepatosplenomegaly Musculoskeletal Extremities: extremities normal to inspection; no cyanosis and no clubbing Skin no rashes, warm and dry Neurologic moves all extremities and awake; no focal motor deficits Psychiatric A+Ox3, euthymic affect Lymphatic no lymphedema Discharge Data Allergies Allergy/AdvReac Type Severity Reaction Status Date / Time Penicillins Allergy Unknown Unknown Verified 03/13/21 08:21 Consultations 03/13/21 08:15 ED Decision to Admit Stat Ordered Studies 03/13/21 05:12 CT angio chest PE protocol Urgent Chest X-Ray 03/13/21 03:50 XR chest 1V portable CLINICAL HISTORY: Dyspnea COMPARISON STUDY: 06/27/2019 FINDINGS: The heart is enlarged. There is a retrocardiac opacity consistent with a hiatal hernia. There is no failure. There is no focal pulmonary consolidation. There are no significant pleural effusions.[ IMPRESSION: 1. Mild cardiomegaly 2. Moderate hiatal hernia 3. No acute findings. ACT 112: Negative or not required by law. Electronically signed by: Devyn Clark M.D. 03/13/2021 8:37 AM Chest CTA 03/13/21 05:12 CT angio chest PE protocol CT DOSE: 464.66 mGy.cm HISTORY: 45 years-old Male with PE. Acute shortness of breath. COVID Positive. TECHNIQUE: Multiple CTA images of the chest were obtained after the intravenous administration of 120 ml Optiray. Coronal and sagittal MIPS were obtained from the axial data set and were submitted for review. All measurements were obtained according to NASCET criteria. A dose lowering technique was utilized adhering to the principles of ALARA. COMPARISON: Chest radiograph of same day FINDINGS: CTA: The heart is normal in size. No pericardial effusion. No thoracic aortic aneu rysm or dissection. There is patency of the imaged great vessels. The pulmonary artery is opacified to level of the segmental branches and demonstrates no filling defects to suggest thromboembolic disease. CT CHEST: No thyroid nodule. Mild subcarinal adenopathy measures up to 11 mm. Small layeri ng pleural effusions. Dependent bibasilar consolidation. Subtle patchy subpleural biapical groundglass densities. Mild bronchial wall thickening. Intralobular septal thickening of the lung bases with mild right greater than left bibasilar ground glass densities. Central airways are patent. Large hiatal hernia with mid and distal esophageal wall thickening. Hepatosplenomegaly with hepatic steatosis. Unremarkable soft tissues. There is no acute fracture. There is developmental bony fusion at T11-T12 with increased kyphotic curvature centered at this interspace. IMPRESSION: 1. No pulmonary emboli. 2. Small layering pleural effusions with dependent compressive bibasilar atelectasis. 3. Mild intralobular septal thickening of the right greater than left lung bases may reflect a component of pulmonary edema. 4. Subtle biapical subpleural groundglass densities are suspicious for supe rimposed viral pneumonia. 5. Mild likely reactive subcarinal adenopathy. 6. Large hiatal hernia. ACT 112: Negative or not required by law. The above report was generated using voice recognition software. It may contain grammatical, syntax or spelling errors. Electronically signed by: Raman Cai M.D. 03/13/2021 8:10 AM 03/16/21 07:31 03/16/21 07:31 Hospital Course (1) Hypoxia: Secondary to PNA and COPD exacerbation, as well as likely volume overload and pulmonary edema from 6 units of PRBCs recently transfused at [facility]. Echocardiogram ordered and with grade 1 diastolic dysfunction but preserved EF Now much improved and has been weaned off oxygen after receiving p.o. Lasix for several days-no need for further Lasix at home -Continue treatment with Levaquin as below for suspected pneumonia to complete 7-day course after discharge -Received bronchodilators -Continue prednisone burst as below for COPD exacerbation x7-day course (2) COPD exacerbation: Dexamethasone given in ER. Continue prednisone 40mg PO daily x 7 days. Wheezing is now resolved and weaned off oxygen He reports a long history of asthma since childhood but also a heavy smoker Started on Brio Ellipta (3) Pneumonia: Elevated WBC with shortness of breath. Possible aspiration with alcohol use although no evidence of this on CT. Leukocytosis is 18 on admission and is now normalized Covid-19 is negative Blood cultures no growth to date Continue Levaquin 750mg daily x 7-day course. Aspiration precautions. (4) Alcohol intoxication: Positive ethyl alcohol level on admission. Monitor for alcohol withdrawal-he reports he has been slowly weaning himself down on the amount of beer he drinks over the last month There is also reports a possible history of seizures from alcohol withdrawal as per patient Lorazepam PRN per AWSS protocol-he is not required any so far and is doing very well on the day of discharge Not interested in inpatient or outpatient rehabilitation but plans on attending AA meetings -Continue multivitamin, thiamine, and folic acid-he requested prescription for these upon discharge so he does not buy them off the shelf -f/u B1 level pending at the time of discharge No events on telemetry and no seizure activity -Patient is committed to abstaining from alcohol upon discharge-counseling given (5) Microcytic anemia: -Supposedly had a hemoglobin of 2.6 at [facility] and received 6 units of PRBCs He denies any melena, hematemesis or hematochezia. He is having brown stools here and is Hemoccult negative Review of the chart shows that he had a microcytic anemia with hemoglobin of 8.6 in our system 3 years ago. He has never had a colonoscopy or EGD but states that he would be willing to get one as an outpatient. Hemoglobin here is stable at 9.0, remains microcytic He also reports he received IV iron transfusions there so he should have a pretty good iron load and none further was given here Fecal occult blood is negative here and apparently was negative at [facility] Most likely this could be secondary to nutritional deficiencies, but certainly does warrant outpatient endoscopies once stabilized from a pulmonary standpoint -he will need follow-up with GI as an outpatient after acute pulmonary issues are resolved-recommend PCP refer to GI (6) Transaminitis: Secondary to alcohol use +/- hepatitis C Continues to be improving today, AST is back to normal and ALT is much lower, alkaline phosphatase now normal, total bilirubin is normal Follow LFTs as an outpatient -Continue to abstain from alcohol (7) HCV antibody positive: Newly diagnosed at [facility]. Needs to establish with PCP for follow up of this to determine treatment. (8) Depression: Previously on sertraline and trazodone which the patient is keen to restart. I am unclear of the indication for his more recently prescribed Seroquel therefore will hold off restarting this. -Restarted sertraline 50 mg once daily -Restarted trazodone 100 mg at bedtime -Doing well with this, follow-up with PCP (9) Ascites: Could be secondary to alcoholic hepatitis? -Started furosemide 40mg PO daily x4 days while admitted none further needed on discharge Follow-up with GI as an outpatient (10) Bilateral pleural effusion: As above, likely secondary to volume overload/pulmonary edema from massive blood transfusion recently Furosemide as above given and now weaned off oxygen (11) Headache: Mild to moderate headache, could be secondary to alcohol withdrawal-now resolved -Tylenol as needed (12) Current smoker: He has been working on cutting back and is down to half pack per day as an outpatient Continue nicotine patch care Counseled on cessation (13) Constipation: Now resolved after starting docusate 100 mg p.o. twice daily (14) Hypothyroidism: TSH elevated during admission at 8.56, free T4 low at 0.77 He has no thyroid nodules or goiter palpated on examination Recommend follow-up with PCP for repeat thyroid function testing in several we eks from now No treatment with levothyroxine at this time This was discussed with the patient on the day of discharge (15) DVT prophylaxis: SCDs. Chemical prophylaxis deferred given recent severe anemia and need to make sure this is stable prior to starting anticoagulation. Disposition-stable for discharge to home Will need outpatient GI EGD/colonoscopy Total Time Total Time Spent Total Time Spent (In Minutes): 40 minutes Total Time Includes: Examination of the Patient, Discharge Planning and Medication Reconciliation Discharge Plan Discharge Items Patient Disposition: Home - Self-Care Reason For Visit: COPD EXACERBATION, PNEUMONIA Discharge Diagnosis: COPD exacerbation, pneumonia Condition on Discharge: Good Activity: As commented below Lifting: Gradually increase as tolerated Bathing: No limitations Exercise/Sports: Gradually increase as tolerated Non-emergency contact: Primary Care Provider Call non-emergency contact if: you have any medication questions and your sy mptoms worsen Follow-up/Referrals: Marcia Victoria DO [Physician] - 03/22/21 11:00 am (This will be with Cornel Benavidez) Kevin Barger [Primary Care Provider] - (You are transferring her care to [facility] physician group) Diet: Regular Addtl Attending Provider Instructions: You were admitted for an exacerbation of your COPD as well as with pneumonia. He also had some extra fluid in your lungs from your recent blood transfusions and you were given a water pill to get rid of this fluid. Please finish out the course of prednisone and the antibiotic, levofloxacin, as prescribed. Is very important that you continue to not drink any alcohol. You should take all of the vitamins prescribed to improve your nutritional status. It is recommended that you follow-up with a civil engineering teacher to have an upper and lower endoscopy (EGD and colonoscopy) to further investigate your severe anemia. Please follow-up with primary care physician within 1 to 2 weeks. You should have your thyroid function as well as your blood count rechecked in a couple of weeks. Pending Studies at Discharge: Yes Stand-Alone Forms: My [facility] [employer], Smoking Cessation Medications and DC Order Prescriptions: New levofloxacin 750 mg Tablet 750 mg PO QAM Qty: 3 RF: 0 nicotine 14 mg/24 hr patch 24 hour 1 patch transdermal DAILY Qty: 14 RF: 0 prednisone 20 mg Tablet 40 mg PO QAM 3 Days Qty: 6 RF: 0 trazodone 100 mg Tablet 100 mg PO HS Qty: 30 RF: 0 sertraline 50 mg Tablet 50 mg PO QAM Qty: 30 RF: 0 Breo Ellipta 100-25 mcg/dose Blister With Device 1 ea inhalation DAILY Qty: 28 RF: 0 multivitamin [Daily-Chloé] Tablet 1 tab PO QAM Qty: 30 RF: 0 folic acid 1 mg Tablet 1 mg PO QAM Qty: 30 RF: 0 thiamine HCl (vitamin B1) [Vitamin B-1] 100 mg Tablet 100 mg PO QAM Qty: 30 RF: 0 No Action No Known Home Medications RF: 0 Discharge Orders: Discharge Order (Routine); Ordered 03/16/21 Ordered By: Gissel Parsons Admission Data Admit Date/Time: 03/13/21 08:27 Attending Provider: Gissel Parsons Admit Provider: Devin Rehman Primary Care Provider: Kevin Barger Other Providers: Devin Rehman Coding Level of Care Code D/C Day Management >30 mins Diagnoses Hypoxia R09.02 COPD exacerbation J44.1 Pneumonia J18.9 Pneumonia type: due to unspecified organism Laterality: bilateral Lung location: unspecified part of lung Alcohol intoxication F10.920 Complication of substance-induced condition: uncomplicated Microcytic anemia D50.9 Transaminitis R74.0 HCV antibody positive R76.8 Depression F32.9 Ascites R18.8 Bilateral pleural effusion J90 Headache R51.9 Current smoker F17.200 Constipation K59.00 Hypothyroidism E03.9 DVT prophylaxis Z29.9
== END 2021-03-16 12:40 | disposition home or self-care (01) ==
LOC: ED 02:30 → SUATTDRO 08:27 → 2N 08:27 → INTOOBSV 08:27 → 2N 11:52

== ENCOUNTER 2025-07-14 17:42 | Observation (INO) ==
[2025-07-14 18:46] LABS: Anisocytosis Present; Hematocrit (blood only) 28.3 % (42.0-52.0); Hemoglobin 7.4 g/dl (14.0-18.0); Hypochromasia Present; Immature Granulocytes # (auto) 0.04 K/uL (0.01-0.20); Immature Granulocytes % (auto) 0.4 %; Mean Corpuscular Hemoglobin 17.2 pg (25.0-34.0); Mean Corpuscular Volume 65.8 fL (80.0-100.0); Platelet Count 145 K/uL (130-400); Polychromasia 1+; RDW Standard Deviation 50.5 fL (36.4-46.3); Red Blood Count 4.30 M/uL (4.70-6.10); Stomatocytes 1+; White Blood Count 9.79 K/ul (4.8-10.8)
[2025-07-14 18:48] LABS: Alanine Aminotransferase 9 U/L (7-52); Albumin Globulin Ratio 1.1 (0.9-2); Alkaline Phosphatase 90 U/L (34-104); Anion Gap 10 (3-11); Bilirubin,Total 0.3 mg/dl (0.2-1.0); Blood Urea Nitrogen 11 mg/dl (6-23); Calcium 8.9 mg/dl (8.6-10.3); Carbon Dioxide 25 mmol/L (21-32); Chloride 105 mmol/L (98-107); Globulin 3.6 gm/dl (2.5-4.0); Glucose 85 mg/dl (70-99(Fasting)); Potassium 3.4 mmol/L (3.5-5.1); Sodium 140 mmol/L (136-145); Total Protein 7.6 gm/dl (6.0-8.3)
--- NOTE | 2025-07-14 18:57 | XRay Report ---
Clinical History: Chest pain Technique: A frontal view of the chest was obtained Findings: There are no confluent pulmonary infiltrates. The heart size is within normal limits. No pleural effusion or pneumothorax is seen. There is no definite pulmonary nodule. There is a large hiatal hernia. There are old fractures of the right ninth and 10th ribs Impression: Large hiatal hernia Electronically signed by Javi Tang 07-14-2025 6:57 PM
[2025-07-14 19:06] LABS: INR 0.9 (0.9-1.1); Influenza A virus by PCR Negative (Neg); Influenza B virus by PCR Negative (Neg); Partial Thromboplastin Time 23 Seconds (21-31); Prothrombin Time 10.3 Seconds (9.0-12.0); SARS CoV2 RNA(COVID-19) Ceph NEGATIVE (Negative)
--- NOTE | 2025-07-14 19:41 | Emergency Department Note ---
Impression & Plan Symptomatic anemia, BAUMAN (dyspnea on exertion), Chest pain, Tobacco use ED Provider Note NAME: OMAR HOOD AGE: 49 SEX: M : 1975 ARRIVES VIA: Ambulance INFORMANT: Patient, ED PROVIDER(S): Ramirez Topete DO CHIEF COMPLAINT: Difficulty breathing HPI: The patient is a 49-year-old male who presented to the emergency department for an evaluation of shortness of breath. He noted shortness of breath as well as chest pain. He has been having trouble with having exertional symptoms over the course of the last several days. The patient went to see his family doctor. He had outpatient laboratory studies drawn. He was found to be anemic. He was told to go to the emergency department for admission. The patient denies having any black or tarry stools. He used to have a history of alcohol abuse but has not had any alcohol in 3 months. The patient does have a history of tobacco use. ROS: See above HPI for pertinent positives & negatives. A total of 10 systems reviewed and were otherwise negative. PAST MEDICAL HISTORY: See Below PAST SURGICAL HISTORY: See Below FAMILY HISTORY: See Below SOCIAL HISTORY: See Below HOME MEDICATIONS: See Below ALLERGIES: See Below VITALS: See Below PHYSICAL EXAMINATION: GENERAL: Patient is awake alert in no acute distress patient is resting comfortably and showing no signs of anxiety EYES: The conjunctivae are clear. The pupils are round and reactive. EARS, NOSE, MOUTH AND THROAT: The nose is without any evidence of any deformity. NECK: The neck is nontender and supple. RESPIRATORY: Normal respiratory effort is noted there is no evidence of wheezing rhonchi or rales CARDIOVASCULAR: Tachycardic but regular heart sounds were noted to auscultation. There is no definite murmur.. GASTROINTESTINAL: The abdomen is soft. Abdomen is nontender. MUSCULOSKELETAL/EXTREMITIES: There is no evidence of gross deformity full range of motion is noted in the hips and shoulders. SKIN: There is no obvious evidence of any rash. There are no petechiae, pallor or cyanosis noted. NEUROLOGIC: Patient is awake alert and oriented x3. Gait was steady. MEDICAL DECISION MAKING: The patient is a 49-year-old male who presented to the emergency department for an evaluation of generalized weakness and shortness of breath with exertion. The patient has a history of anemia in the past. He had outpatient labs drawn which showed anemia. The patient was sent to the emergency department for further inpatient evaluation. I discussed the patient's condition with the on- call [facility] hospitalist. They have agreed to evaluate the patient in the emergency department. He does have a history of alcohol abuse but has not had any alcohol in 3 months. The patient does have a history of tobacco use. Triage Nursing notes reviewed. Prior medical records reviewed Vital Signs: reviewed and remarkable for no significant abnormalities Differential diagnosis: Reactive airway disease, pneumonia, pneumothorax, COPD, CHF, infections, cardiac ischemia, pulmonary embolism, musculoskeletal, gastrointestinal, as well as other pathologies. ER treatment provided: See below Diagnostics interpreted by me: ECG: EKG was obtained in the emergency department. My interpretation is sinus tachycardia at 106 bpm. There is no ectopy. Nonspecific ST abnormalities were noted. This was compared to a tracing from March 13, 2021. No changes were noted. Cardiac Monitoring: An order was placed for continuous cardiac monitoring. The monitor shows a rate of 105 bpm with sinus tachycardia. Laboratory studies: As stated above and show below. Imaging studies: See below. Radiographic imaging was reviewed by myself Consultation(s): I discussed this case with Dr. Muñoz who is on-call for the [facility] hospitalist group. Past Med/Surg History Problem List (Updated 07/14/25 @ 22:00 by Ramirez Topete DO) Tobacco use (Acute) Chest pain (Acute) BAUMAN (dyspnea on exertion) (Acute) Symptomatic anemia (Acute) Tobacco use disorder Abnormal CT scan of lung (~02/2024) Repeat recommended 3 mos Alcohol use disorder, mild, in early remission, abuse Anemia requiring transfusions COPD exacerbation Pneumonia due to COVID-19 virus Anemia Asthma (Chronic) Panic attacks (Acute) Dentalgia (Acute) Transaminitis (Acute) Alcohol abuse Microcytic anemia Bilateral pleural effusion Ascites Tachycardia Encounter for pre-operative examination Cervical radiculopathy Biceps tendinitis of left shoulder Rotator cuff tendinitis Left upper extremity numbness Anemia Alcoholism in remission LAST DRINK>05/29/22 (FOLLOWS WITH [facility] PCP MONTHLY) COPD (chronic obstructive pulmonary disease) inhaler daily/prn Current smoker 10 CIG DAILY HCV antibody positive Hypothyroidism PATIENT UNSURE Depression (Acute) Psychiatry [facility] Anxiety (Acute) Medical History Hepatitis C received treatment--not a current issue History of drug use HX OF USING MARIJUANA USE ONLY-states he uses it daily (advised on policy) Arthritis Migraine Alcohol withdrawal seizure LAST EPISODE "A WHILE AGO" Surgical History History of colonoscopy History of esophagogastroduodenoscopy (EGD) History of tooth extraction History of anesthesia reaction MEMORY PROBLEMS FOR SHORT TIME AFTER ANESTHESIA History of tonsillectomy Family History Other No family history of adverse response to anesthesia No significant family history Social History Smoking Status: Current every day smoker Tobacco Type: Cigarettes Age Started Using Tobacco: 12; packs per day: 0.25; Cigarettes Per Day: 10 cig a day; Second Hand Exposure: No; Do You Dip or Chew Tobacco: No; Hx Alcohol Use: No (recovering alcoholic--last drink 05/29/22) Hx Substance Use: Yes (smokes marijuana daily (advised on policy)) Prescribed Medications: Opiates and Other Last Used Substance: Hours (ago) Preferred Language: Lao Communication Ability: Effective Visual Impairment: Limited Hearing Ability: Normal Counselor Manager Required: No Beliefs That Will Affect Care: None marital status: single Current Living Situation: Other Current Living Situation Comment: out of [employer] program/apartment with 2 room mates current occupational status: disabled How many Children do You have: 0 Feels Safe at Home: Yes Childhood Exposure to Second-Hand Smoke: Yes Diet: regular caffeine: Yes (coffee in am ) during the past year weight has: decreased > 10 lbs Dental Care, Regularly: Yes Physical Activity Frequency: Daily Physical Activity Frequency Comment: walks Seatbelt Use: always Sunscreen Use: Yes Assistive Devices: None Allergies Allergies Allergy/AdvReac Type Severity Reaction Status Date / Time poison mellisa extract Allergy Severe Hives Verified 07/14/25 20:20 Penicillins Allergy Mild RASH AND Verified 07/14/25 20:20 BUBBLES ON SKIN Home Meds Home Medications Medication Instructions Recorded Confirmed sertraline 100 mg tablet 150 mg PO QAM 06/06/21 07/14/25 budesonide-formoterol HFA 80 2 puff inhalation BID 02/27/24 07/14/25 mcg-4.5 mcg/actuation aerosol inhaler fluticasone propionate 50 2 spray intranasal BID 02/27/24 07/14/25 mcg/actuation nasal spray,suspension levetiracetam 500 mg tablet 500 mg PO BID 02/27/24 07/14/25 methocarbamol 500 mg tablet 500 mg PO BID 02/27/24 07/14/25 trazodone 150 mg tablet 150 mg PO HS 02/27/24 07/14/25 albuterol sulfate 90 mcg/actuation 2 puff inhalation Q6H PRN 07/14/25 07/14/25 aerosol inhaler Shortness Of Breayh buspirone 5 mg tablet 5 mg PO TID 07/14/25 07/14/25 folic acid 1 mg tablet 1 mg PO QAM 07/14/25 07/14/25 quetiapine 400 mg tablet,extended 400 mg PO QPM 07/14/25 07/14/25 release 24 hr Previous Rx's Medication Instructions Recorded thiamine HCl (vitamin B1) 100 mg 100 mg PO QAM #30 tabs 09/19/22 tablet (Vitamin B-1) ferrous sulfate 325 mg (65 mg 325 mg PO QAM #90 tabs 10/06/22 iron) tablet,delayed release multivitamin (Daily-Chloé tablet) 1 tab PO QAM #30 tabs 10/06/22 Results & Data (ED) Vital Signs Vital Signs - 24 hr 07/14/25 17:50 07/14/25 20:39 07/14/25 20:43 Temperature 36.7 C Temperature Source Oral Pulse Rate 105 H 98 H Pulse Rate [Left Apical] Respiratory Rate 19 Respiratory Effort / Characteristics Non-Labored Spontaneous Respiratory Depth Normal Respiratory Pattern Regular Blood Pressure 106/67 Blood Pressure [Right Arm] Blood Pressure Mean 80 Blood Pressure Mean [Right Arm] Pulse Oximetry 95 Oxygen Delivery Method Room Air Room Air Sepsis Recent Fever Within 48 Hours No Sepsis New/Unexplained Change in Mental Status N/A Sepsis Action Taken by Nursing No Action Required 07/14/25 20:43 Temperature Temperature Source Pulse Rate Pulse Rate [Left Apical] 105 H Respiratory Rate 20 Respiratory Effort / Characteristics Non-Labored Spontaneous Respiratory Depth Normal Respiratory Pattern Regular Blood Pressure Blood Pressure [Right Arm] 121/85 Blood Pressure Mean Blood Pressure Mean [Right Arm] 97 Pulse Oximetry 95 Oxygen Delivery Method Room Air Sepsis Recent Fever Within 48 Hours Sepsis New/Unexplained Change in Mental Status Sepsis Action Taken by Intermediate Medications Current Medication List: was personally reviewed by me Laboratory Data Attestation: I reviewed the patient's lab results. 07/14/25 18:08 07/14/25 18:08 Lab Results 07/14/25 07/14/25 07/14/25 Range/Units 18:08 18:08 18:08 WBC 9.79 (4.8-10.8) K/ul RBC 4.30 L (4.70-6.10) M/uL Hgb 7.4 L (14.0-18.0) g/dl Hct 28.3 L (42.0-52.0) % MCV 65.8 L (80.0-100.0) fL MCH 17.2 L (25.0-34.0) pg MCHC 26.1 L (32.0-36.0) g/dL RDW Std Deviation 50.5 H (36.4-46.3) fL RDW Coeff of Trin[place] 22.1 H (11.5-14.5) % Plt Count 145 (130-400) K/uL Immature Gran % (Auto) 0.4 % Neut % (Auto) 70.7 % Lymph % (Auto) 15.1 % [place] % (Auto) 5.5 % Eos % (Auto) 6.7 % Baso % (Auto) 1.6 % Reticulocyte % (Auto) 1.92 Cancelled (0.50-2.00) % Neut # (Auto) 6.91 H (1.40-6.50) K/uL Lymph # (Auto) 1.48 (1.20-3.40) K/uL [place] # (Auto) 0.54 (0.11-0.59) K/uL Eos # (Auto) 0.66 H (0.00-0.50) K/uL Baso # (Auto) 0.16 (0.00-0.20) K/uL Reticulocyte # 0.080 Cancelled (0.020-0.100) 10^6/uL Immature Gran # (Auto) 0.04 (0.01-0.20) K/uL Platelet Estimate Normal (Normal) Polychromasia 1+ Hypochromasia Present Anisocytosis Present Stomatocytes 1+ PT 10.3 (9.0-12.0) Seconds INR 0.9 (0.9-1.1) APTT 23 (21-31) Seconds PTT Ratio 0.9 Sodium 140 (136-145) mmol/L Potassium 3.4 L (3.5-5.1) mmol/L Chloride 105 (98-107) mmol/L Carbon Dioxide 25 (21-32) mmol/L Anion Gap 10 (3-11) BUN 11 (6-23) mg/dl Creatinine 0.96 (0.6-1.4) mg/dl Est Cr Clr Drug Dosing Not Reportable eGFR 96.30 BUN/Creatinine Ratio 11.5 (10-20) Glucose 85 (70-99(Fasting)) mg/dl Calcium 8.9 (8.6-10.3) mg/dl Total Bilirubin 0.3 (0.2-1.0) mg/dl AST 19 (13-39) U/L ALT 9 (7-52) U/L Alkaline Phosphatase 90 (34-104) U/L Troponin I High Sens 4.1 (0-20) pg/ml Total Protein 7.6 (6.0-8.3) gm/dl Albumin 4.0 (3.4-5.0) gm/dl Globulin 3.6 (2.5-4.0) gm/dl Albumin/Globulin Ratio 1.1 (0.9-2) SARS-CoV-2 (PCR) NEGATIVE (Negative) Influenza Type A (PCR) Negative (Neg) Influenza Type B (PCR) Negative (Neg) RSV (RT-PCR) Negative (Neg) Blood Type Antibody Screen 07/14/25 Range/Units 19:55 WBC (4.8-10.8) K/ul RBC (4.70-6.10) M/uL Hgb (14.0-18.0) g/dl Hct (42.0-52.0) % MCV (80.0-100.0) fL MCH (25.0-34.0) pg MCHC (32.0-36.0) g/dL RDW Std Deviation (36.4-46.3) fL RDW Coeff of Trin[place] (11.5-14.5) % Plt Count (130-400) K/uL Immature Gran % (Auto) % Neut % (Auto) % Lymph % (Auto) % [place] % (Auto) % Eos % (Auto) % Baso % (Auto) % Reticulocyte % (Auto) (0.50-2.00) % Neut # (Auto) (1.40-6.50) K/uL Lymph # (Auto) (1.20-3.40) K/uL [place] # (Auto) (0.11-0.59) K/uL Eos # (Auto) (0.00-0.50) K/uL Baso # (Auto) (0.00-0.20) K/uL Reticulocyte # (0.020-0.100) 10^6/uL Immature Gran # (Auto) (0.01-0.20) K/uL Platelet Estimate (Normal) Polychromasia Hypochromasia Anisocytosis Stomatocytes PT (9.0-12.0) Seconds INR (0.9-1.1) APTT (21-31) Seconds PTT Ratio Sodium (136-145) mmol/L Potassium (3.5-5.1) mmol/L Chloride (98-107) mmol/L Carbon Dioxide (21-32) mmol/L Anion Gap (3-11) BUN (6-23) mg/dl Creatinine (0.6-1.4) mg/dl Est Cr Clr Drug Dosing eGFR BUN/Creatinine Ratio (10-20) Glucose (70-99(Fasting)) mg/dl Calcium (8.6-10.3) mg/dl Total Bilirubin (0.2-1.0) mg/dl AST (13-39) U/L ALT (7-52) U/L Alkaline Phosphatase (34-104) U/L Troponin I High Sens (0-20) pg/ml Total Protein (6.0-8.3) gm/dl Albumin (3.4-5.0) gm/dl Globulin (2.5-4.0) gm/dl Albumin/Globulin Ratio (0.9-2) SARS-CoV-2 (PCR) (Negative) Influenza Type A (PCR) (Neg) Influenza Type B (PCR) (Neg) RSV (RT-PCR) (Neg) Blood Type O Positive Antibody Screen NEGATIVE Imaging Data Attestation: I personally reviewed and interpreted this imaging study as follows: My Impression: 1 view chest x-ray was obtained in the emergency department. My interpretation is no free air or definite infiltrate, final report below. Radiologist's Impression: Chest X-Ray 07/14/25 17:55 Clinical History: Chest pain Technique: A frontal view of the chest was obtained Findings: There are no confluent pulmonary infiltrates. The heart size is within normal limits. No pleural effusion or pneumothorax is seen. There is no definite pulmonary nodule. There is a large hiatal hernia. There are old fractures of the right ninth and 10th ribs Impression: Large hiatal hernia Electronically signed by Javi Tang 07-14-2025 6:57 PM Discharge Plan Visit Data Chief Complaint: Shortness of Breath/Dyspnea Stated Complaint: Shortness of Breath/Dyspnea ED Provider: Ramirez Topete Discharge Problem: Symptomatic anemia, BAUMAN (dyspnea on exertion), Chest pain, Tobacco use Patient Disposition: Being Evaluated by Hospitalist Condition: Fair Forms Stand Alone Forms: My [facility] Prescriptions Prescriptions: No Action thiamine HCl (vitamin B1) [Vitamin B-1] 100 mg tablet 100 mg PO QAM Qty: 30 5RF ferrous sulfate 325 mg (65 mg iron) tablet,delayed release (DR/EC) 325 mg PO QAM Qty: 90 3RF multivitamin [Daily-Chloé] Tablet 1 tab PO QAM Qty: 30 1RF methocarbamol 500 mg tablet 500 mg PO BID levetiracetam 500 mg tablet 500 mg PO BID fluticasone propionate 50 mcg/actuation spray,suspension 2 spray intranasal BID Rx Instructions: administer into each nostril budesonide-formoterol 80-4.5 mcg/actuation HFA aerosol inhaler 2 puff inhalation BID sertraline 100 mg tablet 150 mg PO QAM trazodone 150 mg tablet 150 mg PO HS folic acid 1 mg tablet 1 mg PO QAM albuterol sulfate 90 mcg/actuation HFA aerosol inhaler 2 puff inhalation Q6H PRN (Reason: Shortness Of Breayh) quetiapine 400 mg tablet extended release 24 hr 400 mg PO QPM buspirone 5 mg tablet 5 mg PO TID Referrals Referrals: Zeeshan Mosher, [Primary Care Provider] -
[2025-07-14 19:54] LABS: Reticulocytes # 0.080 10^6/uL (0.020-0.100)
--- NOTE | 2025-07-14 20:57 | History & Physical Report ---
Date of Service July 14, 2025 Assessment & Plan (1) COPD exacerbation: (2) BAUMAN (dyspnea on exertion): (3) Symptomatic anemia: (4) Tobacco use: (5) Scabies: Plan 49-year-old male with history of COPD, hepatitis C presenting with 2 days of intermittent dyspnea on exertion, shortness of breath. #COPD exacerbation/dyspnea on exertionpatient with chest tightness, wheeze appreciated on exam. He is maintaining adequate oxygenation on room air, no respiratory distress. Suspect mild COPD exacerbation Admit to medical DuoNebs every 4 hours scheduled Albuterol every 2 hours as needed Continue budesonide/formoterol Solu-Medrol 40 mg IV twice daily #Symptomatic anemiapatient with microcytic, hypochromic anemia with Hgb = 7.4, HCT = 28.4. Patient denies active bleeding. He has had a colonoscopy in the past (09/11/2022) which showed sigmoid diverticulosis and internal hemorrhoids. Patient denies melena/hematochezia/hematemesis/hematuria. He does have multiple oozing lesions on his legs from scratching. Possible long-term blood loss from patient's rash? Check iron studies Transfuse 1 unit PRBCs Repeat CBC in the morning #rash, possible scabiespatient has seen his PCP for this in the past. He was treated with ivermectin and permethrin and reports that his symptoms resolved for short time but then reoccurred. Maintain contact isolation Permethrin full body treatment, may repeat in the next couple of days if symptoms do not improve #Tobacco use Nicotine patch ordered Smoking cessation counseling ordered #Anxiety/mental health Continue trazodone Continue sertraline Continue Seroquel Continue buspirone History of Present Illness Chief Complaint: shortness of breath Primary Care Provider: Zeeshan Mosher DO Benjamin Alvarez is a 49-year-old male with history of HCV status posttreatment, COPD, presenting with 1-2 days of shortness of breath. Patient reports SOB is intermittent, mostly with exertion. He has a chronic, non-productive cough. Denies edema, orthopnea, weight gain. No fever, chills Patient denies melena, hematochezia, hematuria, bruising or bleeding. In the ER patient afebrile, HD stable Allergies Allergy/AdvReac Type Severity Reaction Status Date / Time poison mellisa extract Allergy Severe Hives Verified 07/14/25 20:20 Penicillins Allergy Mild RASH AND Verified 07/14/25 20:20 BUBBLES ON SKIN Home Medications Medication Instructions Recorded Confirmed Type sertraline 100 mg tablet 150 mg PO QAM 06/06/21 07/14/25 History thiamine HCl (vitamin B1) 100 mg 100 mg PO QAM #30 tabs 09/19/22 07/14/25 Rx tablet (Vitamin B-1) ferrous sulfate 325 mg (65 mg 325 mg PO QAM #90 tabs 10/06/22 07/14/25 Rx iron) tablet,delayed release multivitamin (Daily-Chloé tablet) 1 tab PO QAM #30 tabs 10/06/22 07/14/25 Rx budesonide-formoterol HFA 80 2 puff inhalation BID 02/27/24 07/14/25 History mcg-4.5 mcg/actuation aerosol inhaler fluticasone propionate 50 2 spray intranasal BID 02/27/24 07/14/25 History mcg/actuation nasal spray,suspension levetiracetam 500 mg tablet 500 mg PO BID 02/27/24 07/14/25 History methocarbamol 500 mg tablet 500 mg PO BID 02/27/24 07/14/25 History trazodone 150 mg tablet 150 mg PO HS 02/27/24 07/14/25 History albuterol sulfate 90 mcg/actuation 2 puff inhalation Q6H PRN 07/14/25 07/14/25 History aerosol inhaler Shortness Of Breayh buspirone 5 mg tablet 5 mg PO TID 07/14/25 07/14/25 History folic acid 1 mg tablet 1 mg PO QAM 07/14/25 07/14/25 History quetiapine 400 mg tablet,extended 400 mg PO QPM 07/14/25 07/14/25 History release 24 hr Past Med/Surg History Problem List (Updated 07/14/25 @ 22:27 by Nesha Muñoz DO) Scabies Tobacco use (Acute) Chest pain (Acute) BAUMAN (dyspnea on exertion) (Acute) Symptomatic anemia (Acute) Tobacco use disorder Abnormal CT scan of lung (~02/2024) Repeat recommended 3 mos Alcohol use disorder, mild, in early remission, abuse Anemia requiring transfusions COPD exacerbation Pneumonia due to COVID-19 virus Anemia Asthma (Chronic) Panic attacks (Acute) Dentalgia (Acute) Transaminitis (Acute) Alcohol abuse Microcytic anemia Bilateral pleural effusion Ascites Tachycardia Encounter for pre-operative examination Cervical radiculopathy Biceps tendinitis of left shoulder Rotator cuff tendinitis Left upper extremity numbness Anemia Alcoholism in remission LAST DRINK>05/29/22 (FOLLOWS WITH [facility] PCP MONTHLY) COPD (chronic obstructive pulmonary disease) inhaler daily/prn Current smoker 10 CIG DAILY HCV antibody positive Hypothyroidism PATIENT UNSURE Depression (Acute) Psychiatry [facility] Anxiety (Acute) Medical History Hepatitis C received treatment--not a current issue History of drug use HX OF USING MARIJUANA USE ONLY-states he uses it daily (advised on policy) Arthritis Migraine Alcohol withdrawal seizure LAST EPISODE "A WHILE AGO" Surgical History History of colonoscopy History of esophagogastroduodenoscopy (EGD) History of tooth extraction History of anesthesia reaction MEMORY PROBLEMS FOR SHORT TIME AFTER ANESTHESIA History of tonsillectomy Family History Other No family history of adverse response to anesthesia No significant family history Social History Smoking Status: Current every day smoker Tobacco Type: Cigarettes Age Started Using Tobacco: 12; packs per day: 0.25; Cigarettes Per Day: 10 cig a day; Second Hand Exposure: No; Do You Dip or Chew Tobacco: No; Hx Alcohol Use: No (recovering alcoholic--last drink 05/29/22) Hx Substance Use: Yes (smokes marijuana daily (advised on policy)) Prescribed Medications: Opiates and Other Last Used Substance: Hours (ago) Preferred Language: Pashto Communication Ability: Effective Visual Impairment: Limited Hearing Ability: Normal Framing And Hanging Required: No Beliefs That Will Affect Care: None marital status: single Current Living Situation: Other Current Living Situation Comment: out of cold program/apartment with 2 room mates current occupational status: disabled How many Children do You have: 0 Feels Safe at Home: Yes Childhood Exposure to Second-Hand Smoke: Yes Diet: regular caffeine: Yes (coffee in am ) during the past year weight has: decreased > 10 lbs Dental Care, Regularly: Yes Physical Activity Frequency: Daily Physical Activity Frequency Comment: walks Seatbelt Use: always Sunscreen Use: Yes Assistive Devices: None Review of Systems Review of Systems: All systems reviewed & are unremarkable except as noted in HPI & below Physical Exam Physical Exam: General: patient resting comfortably, NAD, non-toxic in appearance, AA&O x 4 Skin: diffusely spread rash with crusted lesions, areas of active bleeding, excoriations noted mostly on extensor surfaces of arms, bilaterally, back and legs. No active mites noted. No distinct burrows noted between fingers but patient did have active lesions between fingers. Some thickening of the skin of legs and arms HEENT: NC/AT, PERRL, EOMI, anicteric sclera, conjunctiva without injection, external ear normal to inspection and nontender, nares patent, moist mucus membranes, dentition intact, no oropharyngeal lesions, neck supple, trachea midline, no LAD, no thyromegaly, no JVD Heart: +S1/S2, regular, tachycardia, no m/r/g Lungs: equal air entry bilaterally,scattered end-expiratory wheezes Abd: +BS, soft, NT/ND, no masses/organomegaly/ascites Ext: warm, 2+ pulses in UE/LE bilaterally, no clubbing/cyanosis or edema Neuro: nonfocal, patient AA&O x 4, speech intact, no facial droop, moving all extremities on command with equal strength 5/5 Results & Data Results & Data Vital Signs (Past 12 Hours) Vital Signs Temp Pulse Pulse Resp BP BP Pulse Ox 07/14/25 20:43 105 H 20 121/85 95 07/14/25 20:43 07/14/25 20:39 98 H 07/14/25 17:50 36.7 C 105 H 19 106/67 95 O2 Del Method 07/14/25 20:43 Room Air 07/14/25 20:43 Room Air 07/14/25 20:39 07/14/25 17:50 Room Air Laboratory Results Laboratory Results WBC 9.79 K/ul (4.8-10.8) 07/14/25 18:08 RBC 4.30 M/uL (4.70-6.10) L 07/14/25 18:08 Hgb 7.4 g/dl (14.0-18.0) L 07/14/25 18:08 Hct 28.3 % (42.0-52.0) L 07/14/25 18:08 MCV 65.8 fL (80.0-100.0) L 07/14/25 18:08 MCH 17.2 pg (25.0-34.0) L 07/14/25 18:08 MCHC 26.1 g/dL (32.0-36.0) L 07/14/25 18:08 RDW Std Deviation 50.5 fL (36.4-46.3) H 07/14/25 18:08 RDW Coeff of [place] 22.1 % (11.5-14.5) H 07/14/25 18:08 Plt Count 145 K/uL (130-400) 07/14/25 18:08 Immature Gran % (Auto) 0.4 % 07/14/25 18:08 Neut % (Auto) 70.7 % 07/14/25 18:08 Lymph % (Auto) 15.1 % 07/14/25 18:08 [place] % (Auto) 5.5 % 07/14/25 18:08 Eos % (Auto) 6.7 % 07/14/25 18:08 Baso % (Auto) 1.6 % 07/14/25 18:08 Reticulocyte % (Auto) 1.92 % (0.50-2.00) 07/14/25 18:08 Reticulocyte % (Auto) Cancelled 07/14/25 18:08 Neut # (Auto) 6.91 K/uL (1.40-6.50) H 07/14/25 18:08 Lymph # (Auto) 1.48 K/uL (1.20-3.40) 07/14/25 18:08 [place] # (Auto) 0.54 K/uL (0.11-0.59) 07/14/25 18:08 Eos # (Auto) 0.66 K/uL (0.00-0.50) H 07/14/25 18:08 Baso # (Auto) 0.16 K/uL (0.00-0.20) 07/14/25 18:08 Reticulocyte # 0.080 10^6/uL (0.020-0.100) 07/14/25 18:08 Reticulocyte # Cancelled 07/14/25 18:08 Immature Gran # (Auto) 0.04 K/uL (0.01-0.20) 07/14/25 18:08 Platelet Estimate Normal (Normal) 07/14/25 18:08 Polychromasia 1+ 07/14/25 18:08 Hypochromasia Present 07/14/25 18:08 Anisocytosis Present 07/14/25 18:08 Stomatocytes 1+ 07/14/25 18:08 PT 10.3 Seconds (9.0-12.0) 07/14/25 18:08 INR 0.9 (0.9-1.1) 07/14/25 18:08 APTT 23 Seconds (21-31) 07/14/25 18:08 PTT Ratio 0.9 07/14/25 18:08 Sodium 140 mmol/L (136-145) 07/14/25 18:08 Potassium 3.4 mmol/L (3.5-5.1) L 07/14/25 18:08 Chloride 105 mmol/L (98-107) 07/14/25 18:08 Carbon Dioxide 25 mmol/L (21-32) 07/14/25 18:08 Anion Gap 10 (3-11) 07/14/25 18:08 BUN 11 mg/dl (6-23) 07/14/25 18:08 Creatinine 0.96 mg/dl (0.6-1.4) 07/14/25 18:08 Est Cr Clr Drug Dosing Not Reportable 07/14/25 18:08 eGFR 96.30 07/14/25 18:08 BUN/Creatinine Ratio 11.5 (10-20) 07/14/25 18:08 Glucose 85 mg/dl (70-99(Fasting)) 07/14/25 18:08 Calcium 8.9 mg/dl (8.6-10.3) 07/14/25 18:08 Total Bilirubin 0.3 mg/dl (0.2-1.0) 07/14/25 18:08 AST 19 U/L (13-39) 07/14/25 18:08 ALT 9 U/L (7-52) 07/14/25 18:08 Alkaline Phosphatase 90 U/L (34-104) 07/14/25 18:08 Troponin I High Sens 4.1 pg/ml (0-20) 07/14/25 18:08 Total Protein 7.6 gm/dl (6.0-8.3) 07/14/25 18:08 Albumin 4.0 gm/dl (3.4-5.0) 07/14/25 18:08 Globulin 3.6 gm/dl (2.5-4.0) 07/14/25 18:08 Albumin/Globulin Ratio 1.1 (0.9-2) 07/14/25 18:08 SARS-CoV-2 (PCR) NEGATIVE (Negative) 07/14/25 18:08 Influenza Type A (PCR) Negative (Neg) 07/14/25 18:08 Influenza Type B (PCR) Negative (Neg) 07/14/25 18:08 RSV (RT-PCR) Negative (Neg) 07/14/25 18:08 Blood Type O Positive 07/14/25 19:55 Antibody Screen NEGATIVE 07/14/25 19:55 Impressions Chest X-Ray 07/14/25 17:55 Clinical History: Chest pain Technique: A frontal view of the chest was obtained Findings: There are no confluent pulmonary infiltrates. The heart size is within normal limits. No pleural effusion or pneumothorax is seen. There is no definite pulmonary nodule. There is a large hiatal hernia. There are old fractures of the right ninth and 10th ribs Impression: Large hiatal hernia Electronically signed by Javi Tang 07-14-2025 6:57 PM PG Care Time/CCT Total # of Minutes Spent Total Time Spent with Patient: Total time spent is greater than 50% in coordination of care (as documented) at patient's floor/unit and/or counseling patient: Coding Level of Care Code 25665 INT INP/OBS CARE 3/75MIN Diagnoses COPD exacerbation J44.1 BAUMAN (dyspnea on exertion) R06.09 Symptomatic anemia D64.9 Tobacco use Z72.0 Scabies B86
[2025-07-14] MEDS ORDERED: ALBUTEROL 0.5% NEB SOLN 2.5 MG/0.5 ML VIAL NEB PRN (23:40)
[2025-07-14] MEDS ORDERED: ONDANSETRON INJ 2 MG/ML 2 ML VIAL IV PRN (23:40)
[2025-07-14] MEDS ORDERED: SODIUM CHLORIDE 0.9% 100 ML IV PRN (23:40)
[2025-07-14] MEDS ORDERED: DOCUSATE SODIUM 100 MG CAP PO PRN (23:40)
[2025-07-14] MEDS ORDERED: ACETAMINOPHEN 325 MG TAB PO PRN (23:40)
[2025-07-14] MEDS: ALBUT/IPRATROP 3MG/0.5MG NEB 3 ML VIAL ONE (23:55)
[2025-07-14] MEDS: ALBUT/IPRATROP 3MG/0.5MG NEB 3 ML VIAL NEB SCH (23:55)
[2025-07-15 00:02] LABS: Iron 15 mcg/dl (35-175); Total Iron Binding Cap Calc 498 mcg/dl (250-450); Transferrin 356 mg/dl (200-360); Transferrin (FE) Percent Satur 3 % (20-50)
[2025-07-15 00:21] LABS: Ferritin 3.2 ng/ml (8-388)
[2025-07-15] MEDS: FLUTICASONE PROPIONATE NA SPR 16 GM BTL SCH (00:30)
[2025-07-15] MEDS: levETIRAcetam 500 MG TAB PO SCH (00:30)
[2025-07-15] MEDS: METHOCARBAMOL 500 MG TABLET PO SCH (00:30)
[2025-07-15] MEDS: busPIRone 5 MG TAB PO SCH (00:30)
[2025-07-15] MEDS: NICOTINE 14 MG/24 HR PATCH TD SCH (00:31)
[2025-07-15] MEDS: POTASSIUM CHLORIDE CRTAB 20 MEQ TABCR PO STA (00:31)
[2025-07-15] MEDS: PERMETHRIN 5% CR 60 GM TUBE EXT ONE (00:31)
[2025-07-15 06:42] LABS: Hematocrit (blood only) 29.1 % (42.0-52.0); Hemoglobin 8.1 g/dl (14.0-18.0); Mean Corpuscular Hemoglobin 18.5 pg (25.0-34.0); Mean Corpuscular Volume 66.3 fL (80.0-100.0); Platelet Count 118 K/uL (130-400); RDW Standard Deviation 52.5 fL (36.4-46.3); Red Blood Count 4.39 M/uL (4.70-6.10); White Blood Count 5.38 K/ul (4.8-10.8)
[2025-07-15 07:03] LABS: Anion Gap 5.0 (3-11); Blood Urea Nitrogen 15.0 mg/dl (6-23); Calcium 9.0 mg/dl (8.6-10.3); Carbon Dioxide 27.0 mmol/L (21-32); Chloride 108.0 mmol/L (98-107); Creatinine Clr Calc Pharmacy 119.5 ml/min; Glucose 165.0 mg/dl (70-99(Fasting)); Potassium 4.5 mmol/L (3.5-5.1); Sodium 140.0 mmol/L (136-145)
[2025-07-15] MEDS ORDERED: ALBUT/IPRATROP 3MG/0.5MG NEB 3 ML VIAL NEB PRN (09:24)
--- NOTE | 2025-07-15 09:28 | Hospitalist Progress Note ---
Date of Service July 15, 2025 Assessment & Plan (1) COPD exacerbation: (2) BAUMAN (dyspnea on exertion): (3) Symptomatic anemia: (4) Tobacco use: Plan 49-year-old male with history of COPD, previously treated hepatitis C, history of alcohol use disorder, anxiety/depression, presenting with 2 days of intermittent dyspnea on exertion, shortness of breath. Admitted for COPD exacerbation and severe symptomatic anemia. #COPD exacerbation/dyspnea on exertionpatient with chest tightness, wheezing appreciated on admission. He is maintaining adequate oxygenation on room air, no respiratory distress. Suspect mild COPD exacerbation DuoNebs every 4 hours - changed to prn Albuterol every 2 hours as needed Continue budesonide/formoterol Started on Solu-Medrol 40 mg IV twice daily. Will transition to prednisone 50 mg daily for 3 more days #Symptomatic anemiapatient with microcytic, hypochromic anemia with Hgb = 7.4, HCT = 28.4. Patient denies active bleeding. He has had a colonoscopy in the past (09/11/2022) which showed sigmoid diverticulosis and internal hemorrhoids. Patient denies melena/hematochezia/hematemesis/hematuria. He does have multiple oozing lesions on his legs from scratching. Patient has history of alcohol use disorder. - s/p 1 unit of PRBC 07/14. Hgb 8.4 - Pending EGD and colonoscopy work up outpatient - Iron studies- low iron, low ferritin, low transferrin sat. - IV iron replacement today, start iron supplementation 325 mg daily tomorrow am - Vitamin b12 223, low normal. Will start vitamin b12 supplementation - Will consult GI, aprec recommendations - Protonix 40 mg BID started Repeat CBC in the morning #rash, possible scabiespatient has seen his PCP for this in the past. He was treated with ivermectin and permethrin and reports that his symptoms resolved for short time but then reoccurred. Maintain contact isolation Permethrin full body treatment, may repeat in the next couple of days if symptoms do not improve #Tobacco use Nicotine patch ordered Smoking cessation counseling ordered #Anxiety/mental health Continue trazodone Continue sertraline Continue Seroquel Continue buspirone Alcohol use disorder/ Cirrhosis - US abdomen: Subtle nodularity of the hepatic surface contour suggests morphologic change of cirrhosis. - Denied alcohol intake, was recently on a rehab facility - Continue thiamine and folic acid DVT prophylaxis: scds, low platelets Disposition: Med surg, continue monitoring h/h Admission and Anticipated Discharge Date Admission Date: July 14, 2025 Supervising Physician Co-Signing Physician Notes I personally examined the patient and verified all donis points of history and exam, discussed case, and agree with decision making with with the following additions/exceptions: S-patient feeling much better, no shortness of breath or cough. Denies any melena or hematochezia, no hematemesis, no bleeding from anywhere. Denies any indigestion or heartburn, no abdominal pain. He has had a 30 pound weight loss in the last year but reports that he gained 30 pounds while he was at alcohol inpatient rehab last year so now he is back to his normal weight. I discussed his care with GI O- Vitals Reviewed Gen: AAOx3, NAD HEENT: Anicteric sclerae, EOMI CV: RRR no mgr nl S1S2 Pulm: CTAB no wcr Abd: +BS soft NT ND no masses or hernias Ext: No edema Skin: Multiple excoriated lesions throughout arms and legs Neuro: Full strength throughout CBC, BMP, iron studies, B12, folate reviewed reviewed A/P: 49-year-old male here with COPD exacerbation and severe anemia - COPD exacerbation is improving-switch to p.o. prednisone, no need for azithromycin, will obtain nebulizer machine for him as an outpatient and will encourage smoking cessation - For severe anemia, microcytic and appears chronic, no evidence of gross bleeding-discussed with GI and will make arrangements for close outpatient EGD/colonoscopy which patient is agreeable to. Continue to replace iron with IV iron while here and then oral iron on discharge. Obviously the concern is for peptic ulcer disease versus malignancy with his history of alcohol and nicotine use. Also replace vitamin B12 which is borderline low - Continue treatment for scabies as needed Subjective Seen this am, states feels ok. States dyspnea and SOB are resolved. Denied any active bleeding, denied any black stools. States has received multiples transfusions due to symptomatic anemia. Denied any alcohol intake. Denied any palpitations, chest pain or SOB Review of Systems Review of Systems: as per hpi Physical Exam Constitutional: well developed, well nourished and + well hydrated; no acute distress ENMT: external ear and nose normal, oropharynx normal Respiratory: normal respiratory effort, lungs clear to auscultation Cardiovascular: RRR, no murmur, no edema Gastrointestinal (Abdomen): normal bowel sounds, soft, nontender, no hepatosplenomegaly Skin: + rash and + excoriations Crusted lesions, excorations on extensor surface of arms, back and legs. No mites seen Results & Data Results & Data Vital Signs (Past 12 Hours) Vital Signs Temp Pulse Pulse Resp BP BP BP 07/15/25 07:20 36.7 C 102 H 17 115/73 07/15/25 06:59 101 H 16 07/15/25 04:24 36.8 C 95 H 18 118/78 07/15/25 03:25 36.6 C 98 H 17 127/79 07/15/25 03:16 93 H 18 07/15/25 02:25 36.8 C 100 H 17 103/69 07/15/25 01:55 36.7 C 101 H 16 111/68 07/15/25 01:40 37.3 C 102 H 15 121/73 07/15/25 01:17 37.1 C 98 H 15 110/69 07/14/25 23:55 103 H 18 07/14/25 23:49 36.5 C 101 H 18 130/76 07/14/25 23:40 36.5 C 101 H 18 130/76 07/14/25 22:18 109 H 16 07/14/25 22:06 103 H 17 07/14/25 22:00 135/81 07/14/25 21:30 98 H 18 146/82 H Pulse Ox O2 Del Method 07/15/25 07:20 93 Room Air 07/15/25 06:59 94 Room Air 07/15/25 04:24 95 07/15/25 03:25 93 07/15/25 03:16 93 Room Air 07/15/25 02:25 93 07/15/25 01:55 95 07/15/25 01:40 93 07/15/25 01:17 92 07/14/25 23:55 95 Room Air 07/14/25 23:49 95 Room Air 07/14/25 23:40 95 Room Air 07/14/25 22:18 95 Room Air 07/14/25 22:06 97 Room Air 07/14/25 22:00 07/14/25 21:30 98 Room Air Resident Activity Tracking Resident Involvement: Resident Care Provided Care Provided: Adult Hospital Medicine
[2025-07-15] MEDS: SERTRALINE HCL 50 MG TABLET PO SCH (09:30)
[2025-07-15] MEDS: FOLIC ACID 1 MG TAB PO SCH (09:31)
[2025-07-15] MEDS: THIAMINE HCL 100 MG TAB PO SCH (09:31)
[2025-07-15] MEDS: FLUTICASONE/VILANTEROL 100/25MCG 14 PUFFS/INHALER INH SCH (09:32)
[2025-07-15] MEDS: REMOVE NICODERM PATCH SCH (09:37)
[2025-07-15 10:41] LABS: Folate (Folic Acid),Ser orPlas 17.65 ng/ml (>5.38)
[2025-07-15 10:42] LABS: Vitamin B12 223.0 pg/ml (180-914)
[2025-07-15] MEDS: IRON SUCROSE 200 MG in SODIUM CHLORIDE 0.9% 100 ML IV ONE (11:21)
[2025-07-15 11:53] LABS: Microcytosis Present
--- NOTE | 2025-07-15 13:57 | Billing Data ---
Date of Service July 15, 2025 Coding Level of Care Code 91883 SUB INP/OBS CARE MIN
[2025-07-15] MEDS: CYANOCOBALAMIN 1000 MCG/ML VIAL IM ONE (14:41)
--- NOTE | 2025-07-15 16:06 | Gastrointestinal Consultation ---
Date of Consultation July 15, 2025 Assessment & Plan (1) Iron deficiency anemia: No current GI bleeding. Continue to monitor H/H. Recommend IV iron to treat iron deficiency. Outpatient EGD/colonoscopy. Patient says he is already scheduled for this, but I will have the outpatient staff ensure this is accurate. If not already scheduled, we will arrange. Supervising Physician Co-Signing Physician Notes Patient gives a history of frequent blood blood donations once or twice a month up to about 2 years ago. This certainly could account for his initial iron deficiency. States he has not donated for the last 2 years this may reflect ongoing gastrointestinal or occult GI blood loss or me he may be having chronic deficit. I would agree with IV iron at present. Should be reworked up. He is always scheduled for outpatient upper and lower endoscopy. IV iron should resolve his anemia. Can proceed with scheduled nonemergent outpatient endoscopy. History of Present Illness Reason for Consultation: Anemia Attending Physician: Gissel Parsons MD History of Present Illness Patient is a 49 yo male with anemia. GI consulted for this. Patient has previously undergone a GI evaluation with our service for this issue. He had an EGD in 2020 that did not indicate and explanation for his anemia. Colonoscopy was done in 2021 for anemia. He had diverticulosis and internal hemorrhoids. He had a fair prep and was advised to have a repeat colonoscopy in 1 year. He did not. He was also referred to hematology for further evaluation of his anemia at that time. I do not see records from this referral and patient is not sure if he saw this team. At the present time, his H/H is 8.1/29.1. MCV 66.3. Folate 17.65. Iron level 15. Ferritin 3.2. No current abdominal pain, nausea, vomiting, hematemesis, melena, hematochezia, or coffee ground emesis. Allergies Allergy/AdvReac Type Severity Reaction Status Date / Time poison mellisa extract Allergy Severe Hives Verified 07/14/25 20:20 Penicillins Allergy Mild RASH AND Verified 07/14/25 20:20 BUBBLES ON SKIN Home Medications Medication Instructions Recorded Confirmed Type sertraline 100 mg tablet 150 mg PO QAM 06/06/21 07/14/25 History thiamine HCl (vitamin B1) 100 mg 100 mg PO QAM #30 tabs 09/19/22 07/14/25 Rx tablet (Vitamin B-1) ferrous sulfate 325 mg (65 mg 325 mg PO QAM #90 tabs 10/06/22 07/14/25 Rx iron) tablet,delayed release multivitamin (Daily-Chloé tablet) 1 tab PO QAM #30 tabs 10/06/22 07/14/25 Rx budesonide-formoterol HFA 80 2 puff inhalation BID 02/27/24 07/14/25 History mcg-4.5 mcg/actuation aerosol inhaler fluticasone propionate 50 2 spray intranasal BID 02/27/24 07/14/25 History mcg/actuation nasal spray,suspension levetiracetam 500 mg tablet 500 mg PO BID 02/27/24 07/14/25 History methocarbamol 500 mg tablet 500 mg PO BID 02/27/24 07/14/25 History trazodone 150 mg tablet 150 mg PO HS 02/27/24 07/14/25 History albuterol sulfate 90 mcg/actuation 2 puff inhalation Q6H PRN 07/14/25 07/14/25 History aerosol inhaler Shortness Of Breayh buspirone 5 mg tablet 5 mg PO TID 07/14/25 07/14/25 History folic acid 1 mg tablet 1 mg PO QAM 07/14/25 07/14/25 History quetiapine 400 mg tablet,extended 400 mg PO QPM 07/14/25 07/14/25 History release 24 hr Patient History Medical History Hepatitis C received treatment--not a current issue History of drug use HX OF USING MARIJUANA USE ONLY-states he uses it daily (advised on policy) Arthritis Migraine Alcohol withdrawal seizure LAST EPISODE "A WHILE AGO" Surgical History History of colonoscopy History of esophagogastroduodenoscopy (EGD) History of tooth extraction History of anesthesia reaction MEMORY PROBLEMS FOR SHORT TIME AFTER ANESTHESIA History of tonsillectomy Family History Other No family history of adverse response to anesthesia No significant family history Social History Smoking Status: Current every day smoker Tobacco Type: Cigarettes Age Started Using Tobacco: 12; packs per day: 0.25; Cigarettes Per Day: 1/2 pack; Second Hand Exposure: No; Do You Dip or Chew Tobacco: No; Hx Alcohol Use: No Hx Substance Use: Yes Prescribed Medications: Opiates and Other Last Used Substance: Unknown Preferred Language: Syriac Communication Ability: Effective Visual Impairment: Limited Hearing Ability: Normal Respiratory Care Instructor Required: No Beliefs That Will Affect Care: None marital status: single Current Living Situation: Other Current Living Situation Comment: Lives with friend current occupational status: disabled How many Children do You have: 0 Feels Safe at Home: Yes Childhood Exposure to Second-Hand Smoke: Yes Diet: regular caffeine: Yes (coffee in am ) during the past year weight has: decreased > 10 lbs Dental Care, Regularly: Yes Physical Activity Frequency: Daily Physical Activity Frequency Comment: walks Seatbelt Use: always Sunscreen Use: Yes Assistive Devices: None Review of Systems Constitutional: no fever and no chills Respiratory: no cough and no dyspnea Gastrointestinal: no abdominal pain, no blood in stools and no melena Physical Exam Constitutional: well developed Respiratory: no respiratory distress Psychiatric: Orientation: alert and oriented x 3 Results & Data Vital Signs (Past 12 Hours) Vital Signs Temp Pulse Pulse Resp BP BP Pulse Ox 07/15/25 15:28 36.8 C 75 20 127/65 94 07/15/25 08:30 07/15/25 07:20 36.7 C 102 H 17 115/73 93 07/15/25 06:59 101 H 16 94 07/15/25 04:24 36.8 C 95 H 18 118/78 95 O2 Del Method 07/15/25 15:28 Room Air 07/15/25 08:30 Room Air 07/15/25 07:20 Room Air 07/15/25 06:59 Room Air 07/15/25 04:24 PG Care Time/CCT Total # of Minutes Spent Total Time Spent with Patient: Total time spent is greater than 50% in coordination of care (as documented) at patient's floor/unit and/or counseling patient: Coding Level of Care Code 95713 IN/OBS CONSULT LVL 3,45M Diagnoses Iron deficiency anemia D50.9
[2025-07-16 07:10] LABS: Anion Gap 6.0 (3-11); Blood Urea Nitrogen 12.0 mg/dl (6-23); Calcium 8.9 mg/dl (8.6-10.3); Carbon Dioxide 28.0 mmol/L (21-32); Chloride 108.0 mmol/L (98-107); Creatinine Clr Calc Pharmacy 96.1 ml/min; Glucose 117.0 mg/dl (70-99(Fasting)); Potassium 3.7 mmol/L (3.5-5.1); Sodium 142.0 mmol/L (136-145)
[2025-07-16 07:11] LABS: Hematocrit (blood only) 27.8 % (42.0-52.0); Hemoglobin 7.7 g/dl (14.0-18.0); Mean Corpuscular Hemoglobin 18.2 pg (25.0-34.0); Mean Corpuscular Volume 65.9 fL (80.0-100.0); Platelet Count 114 K/uL (130-400); RDW Standard Deviation 53.0 fL (36.4-46.3); Red Blood Count 4.22 M/uL (4.70-6.10); White Blood Count 7.96 K/ul (4.8-10.8)
[2025-07-16 07:24] VITALS: RESP 16; TEMP 97.7; O2SAT 95
[2025-07-16] MEDS: IRON SUCROSE 200 MG in SODIUM CHLORIDE 0.9% 100 ML IV ONE (07:30)
--- NOTE | 2025-07-16 07:34 | Discharge Summary ---
Date of Service July 16, 2025 Admission HPI Per Admitting Provider Benjamin Alvarez is a 49-year-old male with history of HCV status posttreatment, COPD, presenting with 1-2 days of shortness of breath. Patient reports SOB is intermittent, mostly with exertion. He has a chronic, non-productive cough. Denies edema, orthopnea, weight gain. No fever, chills Patient denies melena, hematochezia, hematuria, bruising or bleeding. In the ER patient afebrile, HD stable Principal Diagnosis Symptomatic anemia Discharge Exam Constitutional WD/WN, vitals as above ENMT external ear and nose normal, oropharynx normal Respiratory normal respiratory effort; no respiratory distress Auscultation: + wheezes (expiratory wheezing) Cardiovascular RRR, no murmur, no edema Gastrointestinal (Abdomen) normal bowel sounds, soft, nontender, no hepatosplenomegaly Skin Excoriation on bilateral legs and amrs Discharge Data Allergies Allergy/AdvReac Type Severity Reaction Status Date / Time poison mellisa extract Allergy Severe Hives Verified 07/14/25 20:20 Penicillins Allergy Mild RASH AND Verified 07/14/25 20:20 BUBBLES ON SKIN Consultations 07/14/25 19:41 ED Decision to Admit Stat 07/15/25 10:25 Consult Gastroenterology Routine Hospital Course (1) COPD exacerbation: (2) BAUMAN (dyspnea on exertion): (3) Symptomatic anemia: (4) Tobacco use: Plan 49-year-old male with history of COPD, previously treated hepatitis C, history of alcohol use disorder, anxiety/depression, presenting with 2 days of intermittent dyspnea on exertion, shortness of breath. Admitted for COPD exace rbation and severe symptomatic anemia. #COPD exacerbation/dyspnea on exertionpatient with chest tightness, wheezing appreciated on admission. He is maintaining adequate oxygenation on room air, no respiratory distress. Suspect mild COPD exacerbation DuoNebs every 4 hours - changed to prn Continue budesonide/formoterol Started on Solu-Medrol 40 mg IV twice daily. Will transition to prednisone 50 mg daily for a total of 4 days. - Nebulizer and DuoNeb as needed-arranged for home nebulizer machine - Encourage smoking cessation #Symptomatic anemiapatient with microcytic, hypochromic anemia with Hgb = 7.4, HCT = 28.4. Patient denies active bleeding. He has had a colonoscopy in the past (09/11/2022) which showed sigmoid diverticulosis and internal hemorrhoids. Patient denies melena/hematochezia/hematemesis/hematuria. He does have multiple oozing lesions on his legs from scratching. Patient has history of alcohol use disorder. - s/p 1 unit of PRBC 07/14. Hgb 8.4 after transfusion and down slightly on the day of discharge to 7.7 but no gross bleeding from anywhere - Iron studies-severely low iron, low ferritin, low transferrin sat-transferrin saturation only 3% and ferritin low at 3 - IV iron replacement x2 given, continue iron supplementation 325 mg daily on discharge - Vitamin b12 223, low normal. Received Vitamin B12 IM once, Will start vitamin b12 supplementation daily -GI consulted aprec recommendations - Recommended outpatient follow up for EDG and Colonoscopy - Protonix 40 mg BID started due to concern of Pepcid ulcer disease vs malignancy. continue this until follow up with GI #rash, possible scabiespatient has seen his PCP for this in the past. He was treated with ivermectin and permethrin and reports that his symptoms resolved for short time but then reoccurred. Have symptoms for at least a year Maintain contact isolation Permethrin full body treatment, may repeat in the next couple of days if symptoms do not improve - Recommend follow up with Dermatology outpatient #Tobacco use Smoking cessation counseling #Anxiety/mental health Continue trazodone Continue sertraline Continue Seroquel Continue buspirone Alcohol use disorder/ Cirrhosis - US abdomen: Subtle nodularity of the hepatic surface contour suggests morphologic change of cirrhosis. - Denied alcohol intake, was recently on rehab facility last year - Continue thiamine and folic acid -Follow-up as an outpatient Total Time Total Time Spent Total Time Spent (In Minutes): see attending documentation Discharge Plan Discharge Items Patient Disposition: Home - Self-Care Reason For Visit: SHORTNESS OF BREATH Discharge Diagnosis: Symptomatic anemia Condition on Discharge: Fair Activity: Per Instructions section Non-emergency contact: Primary Care Provider and Mold Inspector Call non-emergency contact if: you have any medication questions and your symptoms worsen Follow-up/Referrals: Zeeshan Mosher DO [Primary Care Provider] - 07/23/25 2:30 pm Zackary Lopes MD [Physician] - Diet: Regular Addtl Attending Provider Instructions: You were admitted to the hospital due symptomatic anemia, this is when you experienced symptoms due to having low red blood cell count. You were given a unit of blood and iron replacement. - To help built your blood count, we recommend 325 mg daily of iron supplementation and Vitamin b12 100 mcg daily. you can buy this over the counter - We sent to your pharmacy prednisone 50 mg daily, take it daily for 2 more days to complete a short course of steroids - DuoNeb was sent to your pharmacy, use this as needed for shortness of breath every 4 hour. - We will send Protonix (pantoprazole) 40 mg, take this twice a day as an antacid in case of a bleeding ulcer in your stomach. Continue this until your follow up with Gastroenterology We schedule a follow up with gastroenterology. Information of the office is below. A discharge summary will be sent to your primary care physician to ensure continuity of care. Please bring this discharge summary with you to your next office appointment so that your provider can review it at that time. Medications: Your medication list has been reviewed and reconciled upon discharge to ensure accuracy and continuity of care. An updated list of all your medications is included with your hospital discharge paperwork. Please review this list closely and make note of any changes to your medications. - You should continue to Follow up appointments: - Make a follow up appointment with your PCP within the next week. It is very important that you follow up with them shortly after discharge from the hospital. - Keep all of your follow up appointments as already scheduled. If you cannot make an appointment, notify your provider. CONTACT YOUR PRIMARY CARE PROVIDER if you experience any of the following: - Difficulty following your treatment plan - Difficulty taking any of your medications CALL 911 OR GO TO THE EMERGENCY DEPARTMENT if you experience any of the following: - Sudden, severe abdominal pain or nausea/vomiting - Severe chest pain or chest pain that radiates to your jaw or arm - Sudden, severe shortness of breath or difficulty breathing Pending Studies at Discharge: No Stand-Alone Forms: My [employer], Smoking Cessation Medications and DC Order Prescriptions: New ipratropium-albuterol 0.5 mg-3 mg(2.5 mg base)/3 mL Solution For Nebulization 3 ml NEB Q4R PRN (Reason: shortness of breath) Qty: 90 0RF cyanocobalamin (vitamin B-12) [Vitamin B-12] 100 mcg Tablet 100 mcg PO QAM Qty: 30 0RF prednisone 50 mg Tablet 50 mg PO DAILY 2 Days Qty: 2 0RF pantoprazole 40 mg Tablet,Delayed Release (Dr/Ec) 40 mg PO BID 30 Days Qty: 60 0RF Continued thiamine HCl (vitamin B1) [Vitamin B-1] 100 mg tablet 100 mg PO QAM Qty: 30 5RF ferrous sulfate 325 mg (65 mg iron) tablet,delayed release (DR/EC) 325 mg PO QAM Qty: 90 3RF multivitamin [Daily-Chloé] Tablet 1 tab PO QAM Qty: 30 1RF methocarbamol 500 mg tablet 500 mg PO BID levetiracetam 500 mg tablet 500 mg PO BID fluticasone propionate 50 mcg/actuation spray,suspension 2 spray intranasal BID Rx Instructions: administer into each nostril budesonide-formoterol 80-4.5 mcg/actuation HFA aerosol inhaler 2 puff inhalation BID sertraline 100 mg tablet 150 mg PO QAM trazodone 150 mg tablet 150 mg PO HS folic acid 1 mg tablet 1 mg PO QAM albuterol sulfate 90 mcg/actuation HFA aerosol inhaler 2 puff inhalation Q6H PRN (Reason: Shortness Of Breayh) quetiapine 400 mg tablet extended release 24 hr 400 mg PO QPM buspirone 5 mg tablet 5 mg PO TID Discharge Orders: Discharge Order (Routine); Ordered 07/16/25 Ordered By: Lia Penn Admission Data Admit Date/Time: 07/14/25 20:56 Attending Provider: Gissel Parsons Admit Provider: Nesha Muñoz Primary Care Provider: Zeeshan Mosher Other Providers: Nesha Muñoz; Zackary Lopes Other Interventions: Discharge Summary Assessment (RN) Last Done: 07/16/25 11:56 Supervising Physician Co-Signing Physician Notes I personally examined the patient and verified all donis points of history and exam, discussed case, and agree with decision making with Dr. Roldan with the following additions/exceptions: S-patient feeling well, no complaints, no melena or blood in the stool O- Vitals Reviewed Gen: AAOx3, NAD HEENT: Anicteric sclerae, EOMI Pulm: Unlabored breathing CBC, BMP, reviewed A/P: 49-year-old male here with COPD exacerbation and severe anemia - COPD exacerbation is much improved-switch to p.o. prednisone to finish out 5- day course along with PPI, no need for azithromycin, will obtain nebulizer machine for him as an outpatient and will encourage smoking cessation - For severe anemia, microcytic and appears chronic, no evidence of gross bleeding-discussed with GI and will make arrangements for close outpatient EGD/colonoscopy which patient is agreeable to. He was given 1 unit of PRBCs and 2 IV iron infusions while here and then oral iron on discharge. Obviously the concern is for peptic ulcer disease versus malignancy with his history of alcohol and nicotine use. Also replace vitamin B12 which is borderline low - Continue treatment for scabies as needed and follow-up with dermatology as an outpatient as this seems to be a chronic issue Stable for discharged home
[2025-07-16] MEDS: CYANOCOBALAMIN (B-12) 100 MCG TABLET PO SCH (07:42)
[2025-07-16] MEDS ORDERED: FERROUS SULFATE 325 MG TAB PO SCH (09:00)
[2025-07-16 11:58] VITALS: BP 130/76; PULSE 105
--- NOTE | 2025-07-16 13:48 | Billing Data ---
Date of Service July 16, 2025 Coding Level of Care Code 63807 INP/OBS DISCH >30 MIN Time Spent (min) 35 Comment Day of discharge spent 35 minutes with [id number] time, coordination of care, lab review
--- NOTE | 2025-07-18 09:31 | Electrocardiogram Report ---
Test Reason : Blood Pressure : */* mmHG Vent. Rate : 106 BPM Atrial Rate : 106 BPM P-R Int : 166 ms QRS Dur : 100 ms QT Int : 332 ms P-R-T Axes : 82 91 81 degrees QTcB Int : 441 ms Sinus tachycardia Rightward axis Pulmonary disease pattern Incomplete right bundle branch block Abnormal ECG When compared with ECG of 13-Mar-2021 03:01, No significant change was found Confirmed by Lucien Benitez ([id number]) on 07/18/2025 9:31:44 AM Referred By: REFERRED SELF Confirmed By: Lucien Benitez
== END 2025-07-16 12:09 | disposition home or self-care (01) ==
LOC: ED 17:42 → SUATTDRO 20:56 → INTOOBSV 20:56 → 3E 20:56